=== PATIENT | male | born 1985 | race Caucasian/White ===

== ENCOUNTER 2020-06-26 16:03 | Outpatient (REF) | payer MEDICAID, SELFPAY | END 2020-06-26 16:04 | disposition home or self-care (01) | LOC: HO.LAB 16:03 | PROVIDERS: Visit Provider Internal Medicine | DX: Z20.828 Contact with and (suspected) exposure to other viral communicable diseases (principal) | CPT/HCPCS: 87635 ==

== ENCOUNTER 2020-12-21 14:53 | Outpatient (REF) | payer MEDICAID, SELFPAY ==
--- NOTE | ~2020-12-21 | XR_ITS ---
EXAMINATION: XR LUMBOSACRAL SPINE WITH OBLIQUES CLINICAL INFORMATION: Lower back pain. COMPARISON: Lumbar spine radiographs dated 03/09/2010. TECHNIQUE: AP, both oblique, and lateral views of the lumbar spine. Lateral view of the lumbosacral junction. FINDINGS: Normal vertebral body alignment. The lumbar lordosis is maintained. No acute fracture or subluxation. No loss of vertebral body height. Loss of intervertebral disc height with tiny anterior endplate osteophytes at L5-S1. Mild bilateral facet arthropathy at L5-S1. No abnormal soft tissue calcification. XR/XR lumbar spine 4V min IMPRESSION: Mild degenerative disc disease and bilateral facet arthropathy at L5-S1, new when compared to the prior radiographs.
== END 2020-12-21 14:54 | disposition home or self-care (01) ==
LOC: HO.XRAY 14:53
PROVIDERS: PCP Registered Nurse; Visit Provider Registered Nurse
DX: M54.5 Low back pain (principal)
CPT/HCPCS: 72110

== ENCOUNTER → 2021-01-26 10:54 | Outpatient (BNVA) | payer MEDICAID, SELFPAY | PROVIDERS: PCP Registered Nurse; Visit Provider Nurse Practitioner Family | DX: M47.816 Spondylosis without myelopathy or radiculopathy, lumbar region (principal); M17.12 Unilateral primary osteoarthritis, left knee; M25.562 Pain in left knee; F11.90 Opioid use, unspecified, uncomplicated; Z88.1 Allergy status to other antibiotic agents; Z88.8 Allergy status to other drugs, medicaments and biological substances; Z79.899 Other long term (current) drug therapy | CPT/HCPCS: 99202 ==

== ENCOUNTER → 2021-03-23 08:00 | Outpatient (BNVA) | payer MEDICAID, SELFPAY | PROVIDERS: PCP Family Medicine; Visit Provider Nurse Practitioner Family | DX: M47.816 Spondylosis without myelopathy or radiculopathy, lumbar region (principal); M25.562 Pain in left knee | CPT/HCPCS: 99212 ==

== ENCOUNTER 2021-07-02 14:45 | Outpatient (REF) | payer MEDICAID, SELFPAY ==
--- NOTE | ~2021-07-02 | XR_ITS ---
EXAMINATION: XR FOREARM, RIGHT CLINICAL INFORMATION: Acute onset of right forearm pain and swelling. COMPARISON: None TECHNIQUE: AP and lateral views of the right forearm were obtained. FINDINGS: No fracture or cortical disruption. Appropriate alignment at the elbow and wrist. Dorsal soft tissue swelling throughout the forearm and at the elbow. No elbow joint effusion. XR/XR forearm RT 2V IMPRESSION: Dorsal soft tissue swelling. No acute osseous abnormality.
--- NOTE | ~2021-07-02 | US_ITS ---
EXAMINATION: US VENOUS WITH DOPPLER UPPER EXTREMITY, BILATERAL CLINICAL INFORMATION: Bilateral arm pain COMPARISON: None TECHNIQUE: Ultrasound of the upper extremity is performed using compression sonography and color and pulse Doppler flow with assessment of augmentation of flow. There is also imaging and Doppler assessment of the jugular and subclavian veins. Spectral analysis with color-flow imaging is performed. FINDINGS: The bilateral internal jugular, subclavian, axillary, brachial, basilic and cephalic veins are patent. The bilateral radial and ulnar veins in the forearm are patent. There is no evidence of DVT. US/US venous duplex UE BI IMPRESSION: No DVT demonstrated in the bilateral upper extremities.
== END 2021-07-02 14:46 | disposition home or self-care (01) ==
LOC: HO.US 14:45
PROVIDERS: Absent Provider Registered Nurse; PCP Registered Nurse; Visit Provider Nurse Practitioner Primary Care
DX: R60.0 Localized edema (principal); M79.601 Pain in right arm; M79.602 Pain in left arm; M79.631 Pain in right forearm; M79.89 Other specified soft tissue disorders
CPT/HCPCS: 73090; 93970

== ENCOUNTER 2023-03-21 11:23 | Outpatient (REF) | payer MEDICAID, SELFPAY ==
[2023-03-21 14:50] LABS: CT PCR NOT DETECTED (Not Detect.); NG PCR NOT DETECTED (Not Detect.)
== END 2023-03-21 11:24 | disposition home or self-care (01) ==
LOC: HO.HHCLNP 11:23
PROVIDERS: Visit Provider Family Medicine
DX: R31.9 Hematuria, unspecified (principal)
CPT/HCPCS: 0353U; 87086

== ENCOUNTER 2023-04-18 15:34 | Outpatient (REF) | payer MEDICAID, SELFPAY ==
[2023-04-18 16:42] LABS: Anion Gap 13 (12-20); Blood Urea Nitrogen 12 mg/dL (9-16); Calcium 9.5 mg/dL (8.4-10.2); Carbon Dioxide 28 mmol/L (22-29); Chloride 102 mmol/L (96-108); Estimated Glomerular Filt Rate > 60; Glucose Random 106 mg/dL (60-115); Potassium 4.2 mmol/L (3.3-5.1); Sodium 139 mmol/L (135-145)
[2023-04-18 18:10] LABS: Appearance Urine Clear; Color Urine Dark Yellow; Glucose Urine UA Negative (Negative); Leukocyte Esterase Urine Negative (Negative); Nitrite Urine Negative (Negative); Specific Gravity - Urine >= 1.030 (1.005-1.025); UMIC TRIGGER UACC YES; Urine Blood Trace (Negative); Urine Ketones Trace mg/dL (Negative); Urine Protein Negative (Neg-Trace)
[2023-04-18 18:23] LABS: Bacteria Urine None Seen (None Seen); Hyaline Casts Urine 0-2 /LPF (0-2); RBC Urine >20 /HPF (0-2); Squamous Epithelial Cell Urine 0-2 /HPF (0-2); WBC Urine 0-5 /HPF (0-5)
== END 2023-04-18 15:35 | disposition home or self-care (01) ==
LOC: HO.HHCL 15:34
PROVIDERS: Visit Provider Internal Medicine Geriatric Medicine
DX: R31.9 Hematuria, unspecified (principal)
CPT/HCPCS: 36415; 80048; 81001

== ENCOUNTER 2023-06-02 12:42 | Outpatient (REF) | payer MEDICAID, SELFPAY ==
[2023-06-02 17:01] LABS: Urine Cytology See Pathology rpt
== END 2023-06-02 12:43 | disposition home or self-care (01) ==
LOC: HO.LNP 12:42
PROVIDERS: PCP Registered Nurse; Visit Provider Nurse Practitioner Family
DX: Z13.9 Encounter for screening, unspecified (principal); R31.0 Gross hematuria; Z87.891 Personal history of nicotine dependence
CPT/HCPCS: 81003; 88112; 99212

== ENCOUNTER 2023-06-02 12:42 | Outpatient (AMB) | payer MEDICAID, SELFPAY ==
--- NOTE | 2023-06-02 12:54 | MHC.OFFVIS ---
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 Piper. He presents to the office today as a new patient for gross hematuria. In discussion with the patient today he reports going to urgent care for episode of gross hematuria approximately 1 month ago at which time recommendations were made for Urology follow-up. He denies any other episodes of hematuria since his visit to the urgent care a month ago. However reports an episode of hematuria approximately 3 months ago as well. He denies any bothersome urinary issues such as urinary urgency, urinary frequency, incontinence, nocturia, dysuria, foul smelling urine, changes to urinary stream, flank pain, fever, and or chills. When asked he reports a longstanding cigarette smoking history since the age of 12 however quit approximately 8 years ago. He denies any known chemical exposure. Discussed at length potential causes for gross hematuria. Discussed obtaining CT urogram, cytology, and in office cystoscopy for further assessment evaluation. Discussed importance of drinking plenty of water daily. In office urinalysis today with no microscopic hematuria noted. He otherwise offers no other issues or concerns at this time. Review of Systems Const All systems reviewed & are unremarkable except as noted in HPI and below Physical Exam Const General: cooperative, healthy appearing, comfortable, no acute distress, well developed, alert and awake Nutritional Appearance: overweight Orientation/consciousness: patient oriented x3 Limitations: no limitations HEENT Head: Yes normal to inspection, Yes normocephalic and Yes atraumatic Ears: hearing grossly normal bilaterally Eyes General: appearance normal, both eyes and all related structures Neck Neck: Yes normal visual inspection and Yes trachea midline Chest Chest palpation & inspection: normal inspection of the chest Resp Effort & Inspection: normal respiratory effort and able to speak in complete sentences Cardio Rate: regular rate GI Inspection: Yes normal to inspection General: Yes no CVA tenderness Back/Spine/Pelvis Back: no CVA tenderness Skin General skin exam: no rashes or lesions noted Neuro General: patient oriented x3 Extrem General: Yes normal to inspection Psych Appearance: grossly normal and well kempt Mental Status: mental status grossly normal Speech and movement: Normal speech and movement present and Clear speech present Affect: normal affect Attitude: cooperative Thought process: Normal thought process present Thought content: Normal thought content present Insight: Fair insight present (Psych) Judgement: Fair judgement present (Psych) Results AMB Urinalysis, Automated UA Leukoctes 0 Aixa/uL Last Edit by [employer] on 06/02/23 13:15 UA Nitrite Last Edit by [employer] on 06/02/23 13:15 UA Urobilinogen 0.2 mg/dL Last Edit by [employer] on 06/02/23 13:15 UA Protein 0 mg/dL Last Edit by [employer] on 06/02/23 13:15 UA pH 7.0 Last Edit by [employer] on 06/02/23 13:15 UA Blood 0 Mihir/uL Last Edit by [employer] on 06/02/23 13:15 UA Specific [place] 1.015 Last Edit by [employer] on 06/02/23 13:15 UA Ketone Last Edit by [employer] on 06/02/23 13:15 UA Bilirubin 0 mg/dL Last Edit by [employer] on 06/02/23 13:15 UA Glucose 0 mg/dL Last Edit by [employer] on 06/02/23 13:15 Results Reviewed Results Reviewed: Laboratory Last Values Urine pH (Auto) 7.0 06/02/23 13:02 Specific [place] (Auto) 1.015 06/02/23 13:02 Urine Protein (Auto) 0 mg/dL 06/02/23 13:02 Glucose (UA)(Auto) 0 mg/dL 06/02/23 13:02 Urine Blood (Auto) 0 Mihir/uL 06/02/23 13:02 Urine Bilirubin (Auto) 0 mg/dL 06/02/23 13:02 Urine Urobilinogen (Auto) 0.2 mg/dL 06/02/23 13:02 Leukocyte Esterase (Auto) 0 Aixa/uL 06/02/23 13:02 Assessment & Plan Assessment & Plan (1) Gross hematuria: Code(s): R31.0 - Gross hematuria (2) History of nicotine use: Code(s): Z87.891 - Personal history of nicotine dependence Plan In office urinalysis results reviewed with the patient today; as noted above; will send for urine cytology Will obtain CT urogram for further assessment evaluation. BUN and creatinine ordered for imaging purposes Discussed at length potential causes for gross hematuria. Discussed, educated, encouraged to drink plenty of water daily. Patient reports be happy with current voiding parameters. Follow-up in 1-2 months for office cystoscopy with imaging and labs to be completed prior; or sooner with any issues, concerns, and or questions. Orders: Orders AMB Urinalysis Automated 06/02/23 Z13.9 - Encounter for screening, unspecified Urine Cytology 06/02/23 Z13.9 - Encounter for screening, unspecified CT urogram 06/02/23 R31.0 - Gross hematuria Blood Urea Nitrogen 06/02/23 R31.0 - Gross hematuria Creatinine 06/02/23 R31.0 - Gross hematuria Patient Instructions: The patient had an opportunity to ask questions regarding the treatment plan. All questions were answered. Physical exam, labs, and imaging were discussed and reviewed in detail. As well as risks, benefits, and discussion of treatment choices. No major barriers to understanding were identified. The patient expressed understanding and agreement with the above treatment plan. The patient was made aware they should contact our office by phone for worsening of their current condition, the appearance of new symptoms, or with any questions or concerns. Compliance is encouraged with any medications and follow up testing that is ordered. It is a privilege to be allowed the opportunity to participate in? your urological care.? Again, if you have any questions or concerns If you have any questions or concerns please do not hesitate to contact me. The office is [phone]. This note is constructed using voice recognition software. While every effort has been made to ensure accuracy edge blacker errors may have been included. Yours sincerely, CASPER Wilson Coding Level of Care Code New Pt Level 3 (08005) Diagnoses Gross hematuria R31.0 History of nicotine use Z87.891
== END 2023-06-02 13:26 | disposition home or self-care (01) ==
PROVIDERS: PCP Registered Nurse; Visit Provider Nurse Practitioner Family
DX: R31.0 Gross hematuria (principal); Z87.891 Personal history of nicotine dependence
CPT/HCPCS: 99203

== ENCOUNTER 2023-07-10 14:26 | Outpatient (AMB) | payer MEDICAID, SELFPAY ==
--- NOTE | 2023-07-10 14:36 | A.OFFVIS_ITS ---
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 07/10/2023? He is followed today for a cystoscopy procedure. CT Urogram is still pending. He initially evaluated by Oscar TOMLINSON Amie on 06/02/2023 for gross hematuria. Cystoscopy procedure: Consent form was obtained for Cystoscopy procedure. Cystoscopy findings: no suspicious bladder lesions, no bladder wall thickening. Review of charts: Last visit:06/02/2023-- Kong is a very pleasant 37-year-old male patient of Dr. Piper. He presents to the office today as a new patient for gross hematuria. In discussion with the patient today he reports going to urgent care for episode of gross hematuria approximately 1 month ago at which time recommendations were made for Urology follow-up. He denies any other episodes of hematuria since his visit to the urgent care a month ago. However reports an episode of hematuria approximately 3 months ago as well. He denies any bothersome urinary issues such as urinary urgency, urinary frequency, incontinence, nocturia, dysuria, foul smelling urine, changes to urinary stream, flank pain, fever, and or chills. When asked he reports a longstanding cigarette smoking history since the age of 12 however quit approximately 8 years ago. He denies any known chemical exposure. Discussed at length potential causes for gross hematuria. Discussed obtaining CT urogram, cytology, and in office cystoscopy for further assessment evaluation. Discussed importance of drinking plenty of water daily. In office urinalysis today with no microscopic hematuria noted. He otherwise offers no other issues or concerns at this time. 07/10/2023: Evaluation today--UA-- leukoc ytes: negative; blood: negative. 07/10/2023: Plan: Encouraged the patient to drink adequate amount of fluids. Follow-up with Nurse Practitioner Oscar Braxton. post CAT scan. [facility] Surgical History Hx of cystoscopy Review of Systems Const All systems reviewed & are unremarkable except as noted in HPI and below Reports no additional complaints Eyes Reports no additional complaints ENT Reports no additional complaints Card Denies dyspnea Resp Denies cough and Denies dyspnea GI Reports no additional complaints Musc Reports no additional complaints Skin/Breast Denies rash and Denies unusual bruising Neuro Reports no additional complaints Psych Reports no additional complaints Endo Reports no additional complaints Bigg/Lymph Reports no additional complaints Aller/Immun Reports no additional complaints Office Procedures Cystoscopy Consent Discussed risk and benefit or proposed procedure with the patient. Information consent for procedure given to the patient. Discussed technical aspects, risks, benefits and alternatives in full. Addressed all of the patient's questions and concerns regarding the procedure. The patient demonstrated knowledge and understanding. They wish to proceed with this procedure. Preparation The patient was prepped in the usual manner. A denture finisher was present and in the room. Genitalia was prepped with betadine solution in a sterile manner. Lidocaine Jelly 2% was placed into the urethra and 16Fr flexible Olympus cystoscope was inserted into the meatus after adequate lubrication. Procedure Time out per protocol performed. Bladder Inspection Bladder Inspection: The bladder was inspected in its entirety with utilization retroflexion displaying: Tumor(s): none visualized Trabeculation: N/A Mucosal Erthema: N/A Orifices: normal shape and position Urethra: normal Cystoscopy findings: prostatic urethra non obstructive, bulbous urethra WNL, no suspicious bladder lesions visualized [id number] DISPOSABLE SCOPE URO-G FLEXIBLE SCOPE Procedure code (CPT) selection complete Office Meds lidocaine HCl 2 % mucosal jelly in applicator Performing Provider: Jose Jewell MD Performing Location: [facility] Administered by: Jaida Diggs RN on 07/10/23 15:10 Dose Route Admin Location Dispensed Lot Number Expiration Date NDC Payroll Administrator 10 mL intra-urethral 20 mL naproxen 500 mg tablet Performing Provider: Jose Jewell MD Performing Location: [facility] Administered by: Jaida Diggs RN on 07/10/23 15:10 Dose Route Admin Location Dispensed Lot Number Expiration Date NDC Payroll Administrator 500 mg PO 1 tab ciprofloxacin HCl 500 mg tablet Performing Provider: Jose Jewell MD Performing Location: [facility] Administered by: Jaida Diggs RN on 07/10/23 15:10 Dose Route Admin Location Dispensed Lot Number Expiration Date NDC Payroll Administrator 500 mg PO 1 tab Results AMB Urinalysis, Automated UA Leukoctes 0 Aixa/uL Last Edit by Chapincito Doan Drew on 07/10/23 14:59 UA Nitrite Negative Last Edit by Chapincito Doan COUNTS INCLUDE 234 BEDS AT [facility] on 07/10/23 14:59 UA Urobilinogen 0.2 mg/dL Last Edit by Chapincito Doan COUNTS INCLUDE 234 BEDS AT [facility] on 07/10/23 14:5 9 UA Protein 15 mg/dL Last Edit by Chapincito Doan COUNTS INCLUDE 234 BEDS AT [facility] on 07/10/23 14:59 UA pH 6.0 Last Edit by Chapincito Doan COUNTS INCLUDE 234 BEDS AT [facility] on 07/10/23 14:59 UA Blood 0 Mihir/uL Last Edit by Chapincito Doan COUNTS INCLUDE 234 BEDS AT [facility] on 07/10/23 14:59 UA Specific [employer] 1.020 Last Edit by Chapincito Doan COUNTS INCLUDE 234 BEDS AT [facility] on 07/10/23 14: 59 UA Ketone Negative Last Edit by Chapincito Doan Drew on 07/10/23 14:59 UA Bilirubin 0 mg/dL Last Edit by Chapincito Doan COUNTS INCLUDE 234 BEDS AT [facility] on 07/10/23 14:59 UA Glucose 0 mg/dL Last Edit by Chapincito Doan COUNTS INCLUDE 234 BEDS AT [facility] on 07/10/23 14:59 Results Reviewed Results Reviewed: Laboratory Last Values Urine pH (Auto) 6.0 07/10/23 14:57 Specific [employer] (Auto) 1.020 07/10/23 14:57 Urine Protein (Auto) 15 mg/dL 07/10/23 14:57 Glucose (UA)(Auto) 0 mg/dL 07/10/23 14:57 Urine Ketones (Auto) Negative 07/10/23 14:57 Urine Blood (Auto) 0 Mihir/uL 07/10/23 14:57 Urine Nitrite (Auto) Negative 07/10/23 14:57 Urine Bilirubin (Auto) 0 mg/dL 07/10/23 14:57 Urine Urobilinogen (Auto) 0.2 mg/dL 07/10/23 14:57 Leukocyte Esterase (Auto) 0 Aixa/uL 07/10/23 14:57 Assessment & Plan Assessment & Plan (1) Gross hematuria: Code(s): R31.0 - Gross hematuria (2) History of nicotine use: Code(s): Z87.891 - Personal history of nicotine dependence Plan Encouraged the patient to drink adequate amount of fluids. Follow-up with Nurse Practitioner Oscar Braxton. post CAT scan. Orders: Orders AMB Urinalysis Automated Today Z13.9 - Encounter for screening, unspecified AMB Cystoscopy Today R31.0 - Gross hematuria Patient Instructions: The patient had an opportunity to ask questions regarding treatment plan. All questions were answered. Imaging, Laboratory studies and physical exam results were discussed and reviewed in detail. No major barriers to understanding were identified. The patient expressed understanding and agreement with the above treatment plan. The patient is aware they should contact our office by phone for worsening of their current condition or the appearance of new symptoms. Compliance is encouraged with any medications and followup testing that is ordered. It is a privilege to be allowed the opportunity to participate in the urologic care of your patient. If you have any questions or concerns regarding treatment for the above conditions please do not hesitate to contact me. The office telephone contact is [phone]. This note is constructed in part using voice recognition software. While every effort has been made to ensure accuracy computer lab assistant errors may have been included. Yours sincerely, Jose Jewell MD Coding Level of Care Code Procedure Only Diagnoses Gross hematuria R31.0 History of nicotine use Z87.891 CPT Codes Cystoscopy - CPT: [id number] ([id number])
== END 2023-07-10 15:43 | disposition home or self-care (01) ==
PROVIDERS: PCP Registered Nurse; Visit Provider Urology
DX: R31.0 Gross hematuria (principal); Z87.891 Personal history of nicotine dependence
CPT/HCPCS: 52000

== ENCOUNTER → 2023-07-10 14:26 | Outpatient (BNVA) | payer MEDICAID, SELFPAY | PROVIDERS: PCP Registered Nurse; Visit Provider Urology | DX: R31.0 Gross hematuria (principal); Z87.891 Personal history of nicotine dependence | CPT/HCPCS: 52000; 81003 ==

== ENCOUNTER 2023-07-14 08:42 | Outpatient (REF) | payer MEDICAID, SELFPAY ==
--- NOTE | ~2023-07-14 | CT_ITS ---
EXAMINATION: CT ABDOMEN AND PELVIS WITHOUT AND WITH CONTRAST CLINICAL INFORMATION: Gross hematuria. COMPARISON: 01/08/2010 TECHNIQUE: Noncontrast CT of the abdomen and pelvis is performed followed by split bolus contrast-enhanced images using 85 mL Omnipaque 350 contrast.? Postcontrast imaging is performed during the combined nephrogram and excretion phase. Sagittal and coronal reformatted images were obtained on the technologist's workstation for both the precontrast and postcontrast phases. This CT examination was performed using dose optimization techniques as appropriate, variously including the following: *Automated exposure control *Adjustment of mA and/or kV according to patient size (this includes techniques or standardized protocols for targeted exams where dose is matched to indication/reason for exam; i.e. extremities or head) *Use of iterative reconstruction technique DLP: 1769 mGy-cm FINDINGS: LUNG BASES: No pleural or pericardial effusion. LIVER, GALLBLADDER, AND BILIARY TREE: The liver is enlarged and decreased in attenuation. No suspicious hepatic lesion or biliary ductal dilatation is present. The gallbladder is unremarkable with no evidence of radiopaque gallstones, gallbladder wall thickening, or obvious pericholecystic inflammatory changes. PANCREAS: Fatty infiltration of the head of the pancreas. No ductal dilatation. SPLEEN: Not enlarged. ADRENAL GLANDS: No adrenal mass. KIDNEYS AND URETERS: The kidneys are symmetric in size and enhancement. Delayed images demonstrate intact renal function. 1.2 cm cyst upper pole left kidney. No further imaging follow-up is needed. No perinephric stranding. No renal or ureteral calculus. Bilateral collecting systems and opacified portions of the ureters are nondilated and without obvious filling defects. BLADDER: No bladder calculus. The urinary bladder minimally fills with excreted contrast. No bladder wall thickening. GASTROINTESTINAL TRACT: Small and large bowel loops are of normal caliber. No small bowel obstruction. Moderate fecal retention in the colon. ABDOMINAL WALL: No significant hernia is appreciated. LYMPH NODES: Few mark hepatis lymph nodes are likely on a reactive basis. VASCULAR: Normal caliber abdominal aorta. PELVIC VISCERA: Unremarkable. OSSEUS STRUCTURES: No destructive bone lesions. CT/CT urogram IMPRESSION: No nephrolithiasis or hydronephrosis. Hepatomegaly and hepatic steatosis.
[2023-07-14] MEDS: iohexoL 350 MG/ML 100 ML INFUS..BTL IV (09:28)
== END 2023-07-14 08:43 | disposition home or self-care (01) ==
LOC: HO.CT 08:42
PROVIDERS: PCP Registered Nurse; Visit Provider Nurse Practitioner Family
DX: R31.0 Gross hematuria (principal)
CPT/HCPCS: 74178; Q9967

== ENCOUNTER 2023-08-03 15:51 | Outpatient (AMB) | payer MEDICAID, SELFPAY ==
--- NOTE | 2023-08-03 15:51 | A.OFFVIS_ITS ---
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 Piper. He is being follow-up on today via telehealth for his history of gross hematuria. Of note, patient underwent in office cystoscopy approximately [address] Jewell at which time no suspicious bladder lesions and or bladder wall thickening noted. Recent CT imaging results reviewed with the patient today. The kidneys are symmetrical in size and enhancement. 1.2 cm cyst upper pole of the left kidney. No further imaging follow-up is recommended per radiology report. No perinephric stranding. No renal or ureteral calculus is seen. Bilateral collecting systems and opacified portions of the ureters are nondilated and without obvious filling defects. No bladder calculus. The urinary bladder minimally fills with excreted contrast. No bladder wall thickening. In discussion with the patient today he reports to be doing and feeling well. He denies any bothersome urinary issues or concerns at this time. He denies urinary urgency, urinary frequency, incontinence, nocturia, dysuria, foul smelling urine, changes to urinary stream, flank pain, fever, and or chills. When asked he reports a longstanding cigarette smoking history since the age of 12 however quit approximately 8 years ago. He denies any known chemical exposure. Discussed at length potential causes for gross hematuria. Discussed importance of drinking plenty of water daily. He otherwise offers no other issues or concerns at this time. Cytology 06/26--Negative for high-grade urothelial carcinoma. [facility] Surgical History Hx of cystoscopy Review of Systems Const All systems reviewed & are unremarkable except as noted in HPI and below Physical Exam Const General: cooperative Resp Effort & Inspection: able to speak in complete sentences Psych Speech and movement: Clear speech present Attitude: cooperative Thought process: Normal thought process present Thought content: Normal thought content present Insight: Fair insight present (Psych) Judgement: Fair judgement present (Psych) Results Reviewed Results Reviewed: Date of Service: 07/14/23 EXAMINATION: CT ABDOMEN AND PELVIS WITHOUT AND WITH CONTRAST FINDINGS: LUNG BASES: No pleural or pericardial effusion. LIVER, GALLBLADDER, AND BILIARY TREE: The liver is enlarged and decreased in attenuation. No suspicious hepatic lesion or biliary ductal dilatation is present. The gallbladder is unremarkable with no evidence of radiopaque gallstones, gallbladder wall thickening, or obvious pericholecystic inflammatory changes. PANCREAS: Fatty infiltration of the head of the pancreas. No ductal dilatation. SPLEEN: Not enlarged. ADRENAL GLANDS: No adrenal mass. KIDNEYS AND URETERS: The kidneys are symmetric in size and enhancement. Delayed images demonstrate intact renal function. 1.2 cm cyst upper pole left kidney. No further imaging follow-up is needed. No perinephric stranding. No renal or ureteral calculus. Bilateral collecting systems and opacified portions of the ureters are nondilated and without obvious filling defects. BLADDER: No bladder calculus. The urinary bladder minimally fills with excreted contrast. No bladder wall thickening. GASTROINTESTINAL TRACT: Small and large bowel loops are of normal caliber. No small bowel obstruction. Moderate fecal retention in the colon. ABDOMINAL WALL: No significant hernia is appreciated. LYMPH NODES: Few mark hepatis lymph nodes are likely on a reactive basis. VASCULAR: Normal caliber abdominal aorta. PELVIC VISCERA: Unremarkable. OSSEUS STRUCTURES: No destructive bone lesions. IMPRESSION: No nephrolithiasis or hydronephrosis. Hepatomegaly and hepatic steatosis. Assessment & Plan Assessment & Plan (1) Gross hematuria: Code(s): R31.0 - Gross hematuria (2) Renal cyst: Code(s): N28.1 - Cyst of kidney, acquired (3) History of nicotine use: Code(s): Z87.891 - Personal history of nicotine dependence Plan Recent CT urogram results reviewed with the patient today; as noted above. Patient denies any bothersome urinary issues or concerns at this time. Discussed, educated, encouraged on the importance of drinking plenty of water daily. Patient is happy with current voiding parameters. Discussed at length potential causes of gross hematuria as well as renal cyst. Follow-up in 6 months; or sooner with any issues, concerns, and or questions. Patient Instructions: The patient had an opportunity to ask questions regarding the treatment plan. All questions were answered. Physical exam, labs, and imaging were discussed and reviewed in detail. As well as risks, benefits, and discussion of treatment choices. No major barriers to understanding were identified. The patient expressed understanding and agreement with the above treatment plan. The patient was made aware they should contact our office by phone for worsening of their current condition, the appearance of new symptoms, or with any questions or concerns. Compliance is encouraged with any medications and follow up testing that is ordered. It is a privilege to be allowed the opportunity to participate in? your urological care.? Again, if you have any questions or concerns If you have any questions or concerns please do not hesitate to contact me. The office is [phone]. This note is constructed using voice recognition software. While every effort has been made to ensure accuracy vending machine filler errors may have been included. Yours sincerely, DALY Wilson Telehealth Telehealth Location of provider rendering services: practice address Location of patient: address on file Patient Identification confirmed using: Name, : Yes Telehealth method: voice only Patient verbally consented to treatment: Yes Patient verbally consented to billing insurance company: Yes Patient informed of any privacy concerns related to visit: Yes Coding Level of Care Code Tele Est Pt Level 2 (83859) Diagnoses Gross hematuria R31.0 Renal cyst N28.1 History of nicotine use Z87.891 Time Spent (min) 15
== END 2023-08-03 16:10 ==
LOC: HO.HUSH 15:51
PROVIDERS: PCP Registered Nurse; Visit Provider Nurse Practitioner Family
DX: R31.0 Gross hematuria (principal); N28.1 Cyst of kidney, acquired; Z87.891 Personal history of nicotine dependence
CPT/HCPCS: 99212

== ENCOUNTER → 2023-08-03 15:51 | Outpatient (BNVA) | payer MEDICAID, SELFPAY | PROVIDERS: PCP Registered Nurse; Visit Provider Nurse Practitioner Family ==

== ENCOUNTER 2023-11-01 16:12 | Outpatient (REF) | payer MEDICAID, SELFPAY ==
[2023-11-01 17:30] LABS: MANUAL DIFF FLAG NO
[2023-11-01 17:37] LABS: Basophils Percent Auto 0.8 % (0-2); Eosinophils Absolute Auto 0.2 X10*3/uL (0.0-0.4); Eosinophils Percent Auto 5.5 % (0-4); Hemoglobin 15.1 g/dl (14.0-18.0); Imm Gran Abs Auto 0.01 X10*3/uL (0.00-0.03); Imm Gran Pct Auto 0.3 % (0.0-0.4); Lymphocytes Absolute Auto 1.6 X10*3/uL (1.2-4.9); Lymphocytes Percent Auto 39.8 % (20-40); Mean Corpuscular HGB Conc 33.6 g/dl (31.0-36.0); Mean Corpuscular Hemoglobin 27.6 pg (27.0-33.0); Mean Corpuscular Volume 82.3 fL (80.0-98.0); Mean Platelet Volume 9.4 fL (9.4-12.4); Monocytes Absolute Auto 0.5 X10*3/uL (0.1-1.2); Monocytes Percent Auto 12.3 % (2-11); Neutrophils Absolute Auto 1.7 x10*3/uL (2.0-8.3); Neutrophils Percent Auto 41.3 % (45-73); Platelet Count 293 X10*3/uL (160-400); Red Blood Count 5.47 X10*6/uL (4.60-5.80); Red Cell Distribution Width 13.5 % (11.0-16.0)
[2023-11-01 18:05] LABS: Estimated Average Glucose 103 mg/dL; Hemoglobin A1c % 5.2 % (<6.0)
[2023-11-01 18:19] LABS: TSH reflex Free T4 0.48 uIU/mL (0.32-4.0)
== END 2023-11-01 16:13 | disposition home or self-care (01) ==
LOC: HO.HHCL 16:12
PROVIDERS: Visit Provider Nurse Practitioner
DX: R23.2 Flushing (principal)
CPT/HCPCS: 36415; 83036; 84443; 85025

== ENCOUNTER 2023-12-28 09:20 | Outpatient (REF) | payer MEDICAID, SELFPAY ==
[2023-12-28 11:33] LABS: MANUAL DIFF FLAG NO
[2023-12-28 11:42] LABS: Basophils Percent Auto 0.9 % (0-2); Eosinophils Absolute Auto 0.1 X10*3/uL (0.0-0.4); Eosinophils Percent Auto 3.4 % (0-4); Hematocrit 44.7 % (42.0-52.0); Hemoglobin 14.7 g/dl (14.0-18.0); Imm Gran Abs Auto 0.01 X10*3/uL (0.00-0.03); Imm Gran Pct Auto 0.3 % (0.0-0.4); Lymphocytes Absolute Auto 1.2 X10*3/uL (1.2-4.9); Lymphocytes Percent Auto 36.3 % (20-40); Mean Corpuscular HGB Conc 32.9 g/dl (31.0-36.0); Mean Corpuscular Hemoglobin 26.6 pg (27.0-33.0); Mean Platelet Volume 9.4 fL (9.4-12.4); Monocytes Absolute Auto 0.4 X10*3/uL (0.1-1.2); Monocytes Percent Auto 11.8 % (2-11); Neutrophils Absolute Auto 1.5 x10*3/uL (2.0-8.3); Neutrophils Percent Auto 47.3 % (45-73); Platelet Count 277 X10*3/uL (160-400); Red Blood Count 5.52 X10*6/uL (4.60-5.80); Red Cell Distribution Width 14.1 % (11.0-16.0); White Blood Count 3.2 X10*3/uL (4.8-10.8)
[2023-12-28 11:50] LABS: Alanine Aminotransferase 148 U/L (0-40); Albumin Level 3.6 g/dL (3.5-5.0); Alkaline Phosphatase 380 U/L (39-117); Anion Gap 12 (12-20); Aspartate Amino Transferase 183 U/L (5-37); Bilirubin Total 4.1 mg/dL (0.0-1.0); Blood Urea Nitrogen 9 mg/dL (9-16); Calcium 9.8 mg/dL (8.4-10.2); Carbon Dioxide 27 mmol/L (22-29); Chloride 103 mmol/L (96-108); Estimated Glomerular Filt Rate > 60; Glucose Random 103 mg/dL (60-115); Sodium 138 mmol/L (135-145); Total Protein 8.3 g/dL (6.5-8.0)
[2023-12-28 12:15] LABS: HBS Num1 276.83 mIU/mL (0-7.99); HBc Num1 0.51 S/CO (0.00-0.79); HBsAGNum1 0.34 S/CO (0.00-0.99); Hepatitis A Antibody IgG REACTIVE (Nonreactive); Hepatitis B Core Antibody Nonreactive (Nonreactive); Hepatitis B Surface Antigen Negative (Negative); ~HepC Num1 10.06 S/CO (0.00-0.79); ~Hepatitis A Antibody IgG 6.07 S/CO (0.00-0.99); ~Hepatitis B Surface Antibody REACTIVE (Nonreactive); ~Hepatitis C Antibody Reactive (Nonreactive)
[2024-01-01 13:08] LABS: HCV Log PCR <1.18 NOT DETECTED Log IU/mL (NOT DETECTED); HepC Viral Load <15 NOT DETECTED IU/mL (NOT DETECTED)
== END 2023-12-28 09:21 | disposition home or self-care (01) ==
LOC: HO.HHCL 09:20
PROVIDERS: Visit Provider Family Medicine
DX: R82.2 Biliuria (principal); R39.9 Unspecified symptoms and signs involving the genitourinary system
CPT/HCPCS: 36415; 80053; 85025; 86704; 86706; 86708; 86803; 87086; 87340; 87522

== ENCOUNTER 2024-01-01 12:49 | Outpatient (REF) | payer MEDICAID, SELFPAY ==
--- NOTE | ~2024-01-01 | CT_ITS ---
EXAMINATION: CT ABDOMEN WITHOUT AND WITH CONTRAST CLINICAL INFORMATION: Icterus and bilirubinuria. Also with elevated AST/ALT and Bilirubin. COMPARISON: CT angiogram July 14, 2023 TECHNIQUE: Contiguous axial thin section helical images of the abdomen were performed before and after the administration of 85 mL of Omnipaque 350 intravenous contrast. The data set was reformatted in the coronal and sagittal planes and reviewed on an independent workstation. This CT examination was performed using dose optimization techniques as appropriate, variously including the following: *Automated exposure control *Adjustment of mA and/or kV according to patient size (this includes techniques or standardized protocols for targeted exams where dose is matched to indication/reason for exam; i.e. extremities or head) *Use of iterative reconstruction technique DLP: 1538 mGy-cm FINDINGS: LUNG BASES: Bibasilar dependent atelectasis. No pleural effusion. LIVER, GALLBLADDER, AND BILIARY TREE: Mild low-attenuation of parenchyma of liver suggesting mild diffuse fatty change. No focal liver lesion. No intrahepatic bile duct dilatation. Mild hepatomegaly. Right lobe of liver measures 22 cm superior inferior. PANCREAS: There is fatty atrophy of the head of the pancreas. This remains unchanged compared to prior CAT scan. No inflammation or mass. No pancreatic duct dilatation. SPLEEN: Spleen is enlarged measuring 18 cm of length. ADRENAL GLANDS AND KIDNEYS: Adrenal glands are normal in size bilaterally. No mass. Kidneys are normal bilaterally. No renal or ureteral calculi. Small cortical cyst upper pole of the left kidney stable since prior CAT scan. No follow-up imaging is recommended for simple renal cyst. BOWEL LOOPS: No acute abnormality. There is no bowel wall thickening /edema. There is no bowel obstruction. There is a moderate to large volume of stool in the colon. The appendix is normal . The small bowel loops are unremarkable. The stomach is normal. There is no hiatal hernia. LYMPH NODES: Normal. VASCULAR: Unremarkable. BONES: No acute osseous abnormality. CT/CT abdomen wo/w IV con IMPRESSION: 1. No acute abnormality CT scan abdomen. 2. Hepatosplenomegaly. Mild diffuse fatty change of liver. Fleischner guidelines were followed.
[2024-01-01] MEDS: iohexoL 350 MG/ML 100 ML INFUS..BTL 85 ML IV (15:09)
== END 2024-01-01 12:50 | disposition home or self-care (01) ==
LOC: HO.CT 12:49
PROVIDERS: PCP Nurse Practitioner; Visit Provider Family Medicine
DX: K75.9 Inflammatory liver disease, unspecified (principal)
CPT/HCPCS: 74170; Q9967

== ENCOUNTER 2024-01-31 14:55 | Outpatient (AMB) | payer MEDICAID, SELFPAY ==
--- NOTE | 2024-01-31 15:00 | A.OFFVIS_ITS ---
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 Piper. He presents to the office today for follow-up of his gross hematuria. In discussion with the patient today reports to be doing and feeling well. He reports following up with his PCP approximately 2 months ago for episodes of fatigue he had been experiencing in undergoing a CT for increased liver enzymes. He continues to follow-up with PCP regarding this issue. He reports no bothersome urinary issues or concerns. He denies having had any episodes of hematuria since May of last year. Of note, patient underwent in office cystoscopy 07/[address] Jewell at which time no suspicious bladder lesions and or bladder wall thickening noted. Previous workup has also included a CT noting the kidneys are symmetrical in size and enhancement. 1.2 cm cyst upper pole of the left kidney. No further imaging follow-up is recommended per radiology report. No perinephric stranding. No renal or ureteral calculus is seen. Bilateral collecting systems and opacified portions of the ureters are nondilated and without obvious filling defects. No bladder calculus. The urinary bladder minimally fills with excreted contrast. No bladder wall thickening. He denies urinary urgency, urinary frequency, incontinence, nocturia, dysuria, foul smelling urine, changes to urinary stream, flank pain, fever, and or chills. He does have a history of nicotine dependence since the age of 12 however quit in 2016. He denies any known chemical exposure in office urinalysis results reviewed with the patient today. No microscopic hematuria noted. However pH 5.5. Discussed importance of adequate hydration. He otherwise offers no other issues or concerns at this time. Cytology 06/26--Negative for high-grade urothelial carcinoma. [facility] Surgical History Hx of cystoscopy Review of Systems Const All systems reviewed & are unremarkable except as noted in HPI and below Physical Exam Const General: cooperative, healthy appearing, comfortable, no acute distress, well developed, alert and awake Nutritional Appearance: overweight Orientation/consciousness: patient oriented x3 Limitations: no limitations HEENT Head: Yes normal to inspection, Yes normocephalic and Yes atraumatic Ears: hearing grossly normal bilaterally Eyes General: appearance normal, both eyes and all related structures Neck Neck: Yes normal visual inspection and Yes trachea midline Chest Chest palpation & inspection: normal inspection of the chest Resp Effort & Inspection: able to speak in complete sentences Cardio Rate: regular rate GI Inspection: Yes normal to inspection General: Yes no CVA tenderness Back/Spine/Pelvis Back: no CVA tenderness Skin General skin exam: no rashes or lesions noted Neuro General: patient oriented x3 Extrem General: Yes normal to inspection Psych Appearance: grossly normal and well kempt Mental Status: mental status grossly normal Speech and movement: Clear speech present Affect: normal affect Attitude: cooperative Thought process: Normal thought process present Thought content: Normal thought content present Insight: Fair insight present (Psych) Judgement: Fair judgement present (Psych) Results AMB Urinalysis, Automated UA Leukoctes 15 Aixa/uL Last Edit by [employer] on 01/31/24 15:26 UA Nitrite Negative Last Edit by [employer] on 01/31/24 15:26 UA Urobilinogen 0.2 mg/dL Last Edit by [employer] on 01/31/24 15:26 UA Protein 30 mg/dL Last Edit by [employer] on 01/31/24 15:26 UA pH 5.5 Last Edit by [employer] on 01/31/24 15:26 UA Blood 0 Mihir/uL Last Edit by [employer] on 01/31/24 15:26 UA Specific [place] 1.030 Last Edit by [employer] on 01/31/24 15:26 UA Ketone Positive Last Edit by [employer] on 01/31/24 15:26 UA Bilirubin 1 mg/dL Last Edit by [employer] on 01/31/24 15:26 UA Glucose 0 mg/dL Last Edit by [employer] on 01/31/24 15:26 Assessment & Plan Assessment & Plan (1) Gross hematuria: Code(s): R31.0 - Gross hematuria Category: Medical Plan In office urinalysis results reviewed with the patient today; as noted above. Patient currently denies any bothersome urinary issues or concerns. He reports be happy with current voiding parameters. Discussed at length potential causes for previous episode of gross hematuria patient experienced. Discussed, educated, and stressed the importance of drinking water daily. Continue to follow-up with PCP regarding elevated liver enzymes as planned. Follow-up in 1 year; or sooner with any issues, concerns, and or questions. Orders: Orders AMB Urinalysis Automated Today Z13.9 - Encounter for screening, unspecified Patient Instructions: The patient had an opportunity to ask questions regarding the treatment plan. All questions were answered. Physical exam, labs, and imaging were discussed and reviewed in detail. As well as risks, benefits, and discussion of treatment choices. No major barriers to understanding were identified. The patient expressed understanding and agreement with the above treatment plan. The patient was made aware they should contact our office by phone for worsening of their current condition, the appearance of new symptoms, or with any questions or concerns. Compliance is encouraged with any medications and follow up testing that is ordered. It is a privilege to be allowed the opportunity to participate in? your urological care.? Again, if you have any questions or concerns If you have any questions or concerns please do not hesitate to contact me. The office is [phone]. This note is constructed using voice recognition software. While every effort has been made to ensure accuracy english faculty member errors may have been included. Yours sincerely, CASPER Wilson Coding Level of Care Code Est Pt Level 3 (70558) Diagnoses Gross hematuria R31.0
== END 2024-01-31 15:23 | disposition home or self-care (01) ==
PROVIDERS: PCP Registered Nurse; Visit Provider Nurse Practitioner Family
DX: R31.0 Gross hematuria (principal); Z13.9 Encounter for screening, unspecified
CPT/HCPCS: 99213

== ENCOUNTER → 2024-01-31 14:55 | Outpatient (BNVA) | payer MEDICAID, SELFPAY | PROVIDERS: PCP Registered Nurse; Visit Provider Nurse Practitioner Family | DX: R31.0 Gross hematuria (principal) | CPT/HCPCS: 81003; 99212 ==

== ENCOUNTER 2024-02-02 16:42 | Outpatient (REF) | payer MEDICAID, SELFPAY ==
[2024-02-02 17:21] LABS: MANUAL DIFF FLAG NO
[2024-02-02 17:38] LABS: Basophils Percent Auto 0.6 % (0-2); Eosinophils Absolute Auto 0.1 X10*3/uL (0.0-0.4); Eosinophils Percent Auto 3.2 % (0-4); Hematocrit 43.6 % (42.0-52.0); Hemoglobin 14.7 g/dl (14.0-18.0); Imm Gran Abs Auto 0.01 X10*3/uL (0.00-0.03); Imm Gran Pct Auto 0.3 % (0.0-0.4); Lymphocytes Absolute Auto 1.4 X10*3/uL (1.2-4.9); Lymphocytes Percent Auto 40.8 % (20-40); Mean Corpuscular HGB Conc 33.7 g/dl (31.0-36.0); Mean Corpuscular Hemoglobin 26.7 pg (27.0-33.0); Mean Corpuscular Volume 79.1 fL (80.0-98.0); Mean Platelet Volume 9.4 fL (9.4-12.4); Monocytes Absolute Auto 0.4 X10*3/uL (0.1-1.2); Monocytes Percent Auto 12.8 % (2-11); Neutrophils Absolute Auto 1.5 x10*3/uL (2.0-8.3); Neutrophils Percent Auto 42.3 % (45-73); Platelet Count 254 X10*3/uL (160-400); Red Blood Count 5.51 X10*6/uL (4.60-5.80); Red Cell Distribution Width 14.4 % (11.0-16.0); White Blood Count 3.4 X10*3/uL (4.8-10.8)
[2024-02-02 18:27] LABS: Alanine Aminotransferase 135 U/L (0-40); Albumin Level 3.9 g/dL (3.5-5.0); Alkaline Phosphatase 438 U/L (39-117); Anion Gap 13 (12-20); Aspartate Amino Transferase 160 U/L (5-37); Bilirubin Direct 1.8 mg/dL (0.0-0.5); Bilirubin Total 2.5 mg/dL (0.0-1.0); Blood Urea Nitrogen 12 mg/dL (9-16); Calcium 9.9 mg/dL (8.4-10.2); Carbon Dioxide 27 mmol/L (22-29); Chloride 103 mmol/L (96-108); Estimated Glomerular Filt Rate > 60; Glucose Random 93 mg/dL (60-115); Sodium 139 mmol/L (135-145); Total Protein 8.8 g/dL (6.5-8.0)
[2024-02-05 15:57] LABS: Iron 82 mcg/dL (45-160); Percent Iron Saturation 22 % (15-50); Total Iron Binding Capacity 365 mcg/dL (228-428); Unsaturated Iron Binding 283 ug/dL
== END 2024-02-02 16:43 | disposition home or self-care (01) ==
LOC: HO.HHCL 16:42
PROVIDERS: Visit Provider Nurse Practitioner
DX: R74.8 Abnormal levels of other serum enzymes (principal)
CPT/HCPCS: 36415; 80048; 80076; 83540; 85025

== ENCOUNTER 2024-09-18 11:43 | Outpatient (REF) | payer MEDICAID, SELFPAY ==
[2024-09-18 13:06] LABS: MANUAL DIFF FLAG NO
[2024-09-18 13:14] LABS: Basophils Percent Auto 0.9 % (0-2); Eosinophils Absolute Auto 0.1 X10*3/uL (0.0-0.4); Eosinophils Percent Auto 3.4 % (0-4); Hematocrit 41.1 % (42.0-52.0); Hemoglobin 13.7 g/dl (14.0-18.0); Imm Gran Abs Auto 0.01 X10*3/uL (0.00-0.03); Imm Gran Pct Auto 0.3 % (0.0-0.4); Lymphocytes Absolute Auto 1.2 X10*3/uL (1.2-4.9); Lymphocytes Percent Auto 36.3 % (20-40); Mean Corpuscular HGB Conc 33.3 g/dl (31.0-36.0); Mean Corpuscular Hemoglobin 27.5 pg (27.0-33.0); Mean Corpuscular Volume 82.4 fL (80.0-98.0); Mean Platelet Volume 9.4 fL (9.4-12.4); Monocytes Absolute Auto 0.4 X10*3/uL (0.1-1.2); Monocytes Percent Auto 13.8 % (2-11); Neutrophils Absolute Auto 1.5 x10*3/uL (2.0-8.3); Neutrophils Percent Auto 45.3 % (45-73); Platelet Count 221 X10*3/uL (160-400); Red Blood Count 4.99 X10*6/uL (4.60-5.80); Red Cell Distribution Width 14.3 % (11.0-16.0); White Blood Count 3.2 X10*3/uL (4.8-10.8)
[2024-09-18 13:27] LABS: Estimated Average Glucose 94 mg/dL; Hemoglobin A1C 110.2027 umol/L; Hemoglobin A1c % 4.9 % (<6.0); Total Hemoglobin (HGBA1C) 3645.0785 umol/L
[2024-09-18 13:38] LABS: Alanine Aminotransferase 125 U/L (0-40); Albumin Level 3.9 g/dL (3.5-5.0); Alkaline Phosphatase 216 U/L (39-117); Amylase 40 U/L (28-100); Aspartate Amino Transferase 150 U/L (5-37); Bilirubin Direct 1.2 mg/dL (0.0-0.5); Bilirubin Total 1.9 mg/dL (0.0-1.0); Lipase 13 U/L (8-78); Total Protein 8.6 g/dL (6.5-8.0)
[2024-09-18 13:43] LABS: TSH reflex Free T4 0.07 uIU/mL (0.32-4.0)
[2024-09-18 14:32] LABS: Free T4 (Free Thyroxine) 0.94 ng/dL (0.71-1.85)
[2024-09-21 02:54] LABS: TS Negative Control Passed; TS Panel A 0; TS Panel B 0; TS Positive Control Passed; TSpotTB Negative (Negative)
== END 2024-09-18 11:44 | disposition home or self-care (01) ==
LOC: HO.HHCL 11:43
PROVIDERS: Family Medicine; Visit Provider Nurse Practitioner
DX: K75.9 Inflammatory liver disease, unspecified (principal); R23.2 Flushing; Z11.1 Encounter for screening for respiratory tuberculosis; R74.8 Abnormal levels of other serum enzymes
CPT/HCPCS: 36415; 80076; 82150; 83036; 83690; 84439; 84443; 85025; 86481

== ENCOUNTER 2024-09-25 11:04 | Outpatient (REF) | payer MEDICAID, SELFPAY ==
[2024-09-25 12:26] LABS: Anion Gap 12 (12-20); Blood Urea Nitrogen 12 mg/dL (9-16); Calcium 9.1 mg/dL (8.4-10.2); Carbon Dioxide 26 mmol/L (22-29); Chloride 102 mmol/L (96-108); Cholesterol 201 mg/dL (<200); Estimated Glomerular Filt Rate > 60; Glucose Random 88 mg/dL (60-115); HDL Cholesterol 28 mg/dL (>40); LDL Cholesterol Calculated 120 mg/dL (<100); Potassium 4.1 mmol/L (3.3-5.1); Sodium 136 mmol/L (135-145); Triglycerides 265 mg/dL (<150)
--- OUTSIDE RECORDS SUMMARY | 2024-09-25 12:37 | XMS_ITS | Encounter Summary ---
Author Organization [email or web address] [facility] Address [address] [place] [address] Care Team Providers Care Property Utilization Manager Name Role Phone Berenice Yoder NP Primary Care Provider [phone] Reason for Referral * Consultation (Routine) - Authorized Specialty Diagnoses / Procedures Referred By Velasquez t Referred To Contact Optometry Diagnoses Encounter for physical examination Berenice Yoder NP [address] [place] [address] Phone: tel: fax: [facility] [address] [place] [id number] Phone: tel: fax: Referral ID Status Reason Start Date Expiration Date Visits Requested Visits Authorized [id number] Authorized Consult and Treat 09/25/2024 09/25/2025 1 1 Reason for Visit * Reason Comments Annual Exam Encounter Details Date Type Department Care Team (Late st Contact Info) Description 09/25/2024 10:00 AM EST Office Visit [facility] [address] [place] [address] Berenice Yoder NP [address] [place] [address] Encounter for physical examination (Primary Dx); Abnormal liver enzymes; Anemia, unspecified type; Low serum thyroid stimulating hormone (TSH); Overweight; Hypovitaminosis D Social History Tobacco Use Types Packs/Day Years Used Date Smoking Tobacco: Former Cigarettes Passive Smoke Exposure: Past Smokeless Tobacco: Never Alcohol Use Standard Drinks/Week Comments Never 0 (1 standard drink = 0.6 oz pur e alcohol) Alcohol Answer Date Recorded How often do you have a drink containing alcohol ? 0 09/25/2024 How many drinks containing a lcohol do you have on a typical day when you are drinking? 0 09/25/2024 How often do you have six or more drinks on one occasion? 0 09/25/2024 Depression Answer Date Recorded Patient Health Questionnaire-9 Score 0 11/01/2023 Patient Health Questionnaire-9 Score 0 11/01/2023 Last PHQ-9: Questionnaire Data Not on file 0 11/01/2023 Housing Stability Answer Date Recorded What is your housing situation today? I have [place] 11/01/[address] you li ve. Do you have problems with any of the following? None of the above 11/01/2023 Food Insecurity Answer Date Recorded Within the past 12 months, y ou worried that your food would run out before you got money to buy more: Never True 11/01/2023 Within the past 12 months,th e food you bought just didn't last and you didn't have enough money to get more: Never True Transportation Answer Date Recorded In the past 12 months, has l ack of transportation kept you from medical appts, meetings, work or from getting things needed for daily living? No 11/01/2023 Utilities Answer Date Recorded In the past 12 months, has t he electric, gas, oil or water company threatened to shut off services in your home? No 11/01/2023 Depression Answer Date Recorded Patient Health Questionnaire-2 Score 0 11/01/2023 Sex and Gender Information Value Date Recorded Sex Assigned at Male 07/04/2022 10:21 AM EDT Legal Sex Male 10:21 AM EDT Gender Identity Male 07/04/2022 10:21 AM EDT Sexual Orientation Straight 07/04/2022 10 :21 AM EDT documented as of this encounter Last Filed Vital Signs Vital Sign Reading Time Taken Comments Blood Pressure 130/80 09/25/2024 10:12 AM EST Pulse 62 09/25/2024 10:12 AM EST Temperature 36.5 ??C (97.7 ??F) 09/25/2024 10:[address] Respiratory Rate 16 09/25/2024 10:12 AM EST Oxygen Saturation 98% 09/25/2024 10:12 AM EST Inhaled Oxygen Concentration - - Weight 124 kg (274 lb) 09/25/2024 10:12 AM EST Height 170.2 cm (5' 7 ) 09/25/2024 10:12 AM EST Body Mass Index 42.91 09/25/2024 10:12 AM EST documented in this encounter Miscellaneous Notes * Assessment & Plan Note - Berenice Yoder NP - 09/25/2024 12:06 PM ESTAssociated Problem(s): Anemia -mild anemia suspected to be r/t iron deficiency -discussed increasing dietary sources of iron -consider further testing for possible hemochromatosis given persistent abnormal liver enzymes * Assessment & Plan Note - Berenice Yoder NP - 09/25/2024 12:03 PM ESTAssociated Problem(s): Overweight Dietary Recommendations: Fruits, vegetables, whole grains, protein foods, and fat-free or low-fat dairy products are healthychoices. Eat different types of protein foods in your diet. This can include seafood, lean meats, poultry, beans, peas, lentils, nuts, seeds, soy products, and eggs. Limit foods and beverages higher in added sugars, saturated fat, and sodium. Exercise Recommendations: At least 150 minutes of moderate-intensity physical activity per week, or an equivalent combinationof moderate- and vigorous-intensity activity -A1c 4.9% as of 09/18/24 -lipid ordered today -will assess his desire for and discuss potential plan for weight management at follow-up * Assessment & Plan Note - Berenice Yoder NP - 09/25/2024 10:13 AM ESTAssociated Problem(s): Abnormal liver enzymes -persistenlt elevated -GI referral placed for further work-up * Assessment & Plan Note - Berenice Yoder NP - 09/25/2024 10:13 AM ESTAssociated Problem(s): Low serum thyroid stimulating hormone (TSH) -TSH 0.7 uIU/mL with normal free T4 of .94 ng/dL -subclinical nature -Will repeat in 3 months with T3 as patient is asymptomatic currently -monitoring parameters reviewed documented in this encounter Plan of Treatment Scheduled Orders Name Type Priority Associated Diagnoses Orde r Schedule Hepatitis C Antibody with Reflex to HCV, RNA, Quantitative, Real-Time PCR Lab Routine Abnormal liver enzymes Expected: 09/25/2024 (Approximate), Expires: 09/25/2025 Hepatitis A Antibody, Total Lab Routine Abnormal liver enzymes Expected: 09/25/2024 (Approximate), Expires: 09/25/2025 Scheduled Referrals Name Type Priority Associated Diagnoses Orde r Schedule Referral to [facility] Referral Routine Encounter for physical examination Expected: 09/25/2024 (Approximate), Expires: 09/25/2025 documented as of this encounter Procedures Procedure Name Priority Date/Time Associated Diagnosis Comments LIPID PANEL, STANDARD Routine 09/25/2024 11:13 AM EST Overweight BASIC METABOLIC PANEL Routine 09/25/2024 11:13 AM EST Overweight documented in this encounter Results * Basic Metabolic Panel (09/25/2024 11:13 AM EST) Sodium 136 135 - 145 mmol/L [facility] Potassium 4.1 3.3 - 5.1 mmol/L [facility] Chloride 102 96 - 108 mmol/L [facility] Carbon Dioxide 26 22 - 29 mmol/L [facility] Anion Gap 12 12 - 20 [facility] Urea Nitrogen (BUN) 12 9 - 16 mg/dL [facility] Creatinine, Serum 0.82 0.5 - 1.4 mg/dL [facility] Estimated Glomerular Filt Rate >60 [facility] Comment:Chronic Kidney Disea se: Estimated GFR < 60 mL/min/1.30j4Ayzyup Kidney Disease: Estimated GFR < 15 mL/min/1.73m2 Glucose 88 60 - 115 mg/dL [facility] Calcium 9.1 8.4 - 10.2 mg/dL [facility] Blood Venous blood specimen / Unknown 09/25/2024 11:13 AM EST 09/25/2024 12:05 PM EST us Berenice Yoder ANIMAL PHYSIOLOGIST LAB BLOOD ORDERABLES Final Resu lt [facility] [address] [place] [address] [phone] * (ABNORMAL) Lipid Panel, Standard (09/25/2024 11:13 AM EST) Triglycerides 265(H) <150 mg/dL [facility] Comment:Desirable Triglyceri de: less than 150 mg/dLBorderline High Triglyceride 150-199 mg/dLHigh Triglyceride: 200-499 mg/dLVery High Triglyceride: greater than or equal to 5OO mg/dL Cholesterol 201(H) <200 mg/dL [facility] Comment:Desirable Cholestero l: less than 200 mg/dLBorderline High Cholesterol: 200-239 mg/dLHigh Cholesterol: greater than 239 mg/dL LDL Cholesterol Calculated 120(H) <100 mg/dL [facility] Comment:Desirable LDL: less than 100 mg/dLNear Optimal/Above Optimal LDL: 110- 129 mg/dLBorderline High LDL: 130-159 mg/dLHigh LDL: 160-189 mg/dLVery High LDL: greater than or equal to 190 mg/dL HDL Cholesterol 28(L) >40 mg/dL [facility] Comment:Desirable HDL: great er than 40 mg/dL Note: This HDL assay may give artificially low results in patients with liver disease. Blood Venous blood specimen / Unknown 09/25/2024 11:13 AM EST 09/25/2024 12:05 PM EST us Berenice Yoder NP LAB BLOOD ORDERABLES Final Resu lt [facility] [address] [place] [address] [phone] documented in this encounter Visit Diagnoses Diagnosis Encounter for physical examination- Primary Abnormal liver enzymes Anemia, unspecified type Low serum thyroid stimulating hormone (TSH) Overweight Hypovitaminosis D Unspecified vitamin D deficiency documented in this encounter Additional Health Concerns Assessment Noted Time PHQ-9 Depression Total Score: 0 11/01/19 24 3:16 PM EST documented as of this encounter Care Teams Property Utilization Manager Relationship Specialty Start Date End Date Berenice Yodre NP [address] [place] [phone] PCP - General Family Medicine 06/13/23 documented as of this encounter
--- OUTSIDE RECORDS SUMMARY | 2024-09-25 12:37 | XMS_ITS | Encounter Summary ---
Author Organization [employer] Address [address] [place] [address] Care Team Providers Care Dewaterer Operator Name Role Phone Beba Berenice TOMLINSON Primary Care Provider [phone] Encounter Details Date Type Department Care Team ([facility] st Contact Info) Description 09/19/2024 Telephone [facility] [address] [place] [address] Marisabel Rosales, SWATI Social History Tobacco Use Types Packs/Day Years Used Date Smoking Tobacco: Former Cigarettes Passive Smoke Exposure: Past Smokeless Tobacco: Never Alcohol Use Standard Drinks/Week Comments Never 0 (1 standard drink = 0.6 oz pur e alcohol) Depression Answer Date Recorded Patient Health Questionnaire-9 [...] AM EDT documented as of this encounter Miscellaneous Notes * Telephone Encounter - Marisabel Rosales RN - 09/19/2024 12:02 PM EST ----- Message from Norm Mazariegos MD sent at 09/19/2024 11:41 AM EST ----- Could you please inform patient that his pancreatic enzyme levels were normal? This was ordered back in 01/2024, but just got done with some labs that his PCP (Beba) ordered. TC placed to inform pt of above message from provider. Pt reminded of upcoming appointment with PCPon 09/25/24 at 10:00 AM. Pt verbalized understanding and denies any further questions at this time. documented in this encounter Plan of Treatment Not on file documented as of this encounter Visit Diagnoses Not on filedocumented in this encounter Additional Health Concerns Assessment Noted Time PHQ-9 Depression Total Score: 0 11/01/19 24 3:16 PM EST documented as of this encounter Care Teams Dewaterer Operator Relationship Specialty Start Date End Date Berenice Yoder NP [address] [place] [address] PCP - General Family Medicine 06/13/23 documented as of this encounter
--- OUTSIDE RECORDS SUMMARY | 2024-09-25 12:37 | XMS_ITS | Encounter Summary ---
Demographics Address [address] [place] [address] Mobile Phone Work Phone Home Phone Preferred Language en Marital Status Single Adventist Affiliation Unknown Race Other Race Ethnic Group or Author Organization [employer] Address [address] [place] [address] Care Team Providers Care Filling Technician Name Role Phone Berenice Yoder DAVI Primary Care Provider [phone] Encounter Details Date Type Department Care Team (Latest Contact Info) Description 09/25/2024 Travel Social History Tobacco Use Types Packs/Day Years [...] AM EDT documented as of this encounter Plan of Treatment Not on file documented as of this encounter Visit Diagnoses Not on filedocumented in this encounter Additional Health Concerns Assessment Noted Time PHQ-9 Depression Total Score: 0 11/01/19 24 3:16 PM EST documented as of this encounter Care Teams Filling Technician Relationship Specialty Start Date End Date Berenice Yoder NP [address] [place] [phone] PCP - General Family Medicine 06/13/23 documented as of this encounter
--- OUTSIDE RECORDS SUMMARY | 2024-09-25 12:37 | XMS_ITS | Clinical Summary ---
Demographics Address [address] [place] [address] [address] [place] [address] Mobile Phone Work Phone Home Phone Preferred Language en Marital Status Single Roman Catholic Affiliation Unknown Race Other Race Ethnic Group or Author Organization [employer] Address [address] [facility] [address] [place] [address] Care Team Providers Care Sound Technician Name Role Phone Beba Berenice TOMLINSON Primary Care Provider [phone] Allergies Active Allergy Reactions Criticality Noted Date Comments Amoxicillin 03/31/2021 Other reaction(s): Skin irritation Clavulanic Acid 03/31/2021 Other reaction(s): Skin irritation Cyclobenzaprine 12/17/2014 Medications Diclofenac Sodium (Voltaren) 1 % gel Apply topically every 12 (twelve) hours. 1 Active methadone (Dolophine) 10 MG/5ML solution Take by mouth. Active halobetasol (UltraVATE) 0.05 % creamIndication s:Scar tissue Apply a pea size amount to affected area four times a day. Do not apply on face or genital areas 15 g 2 4 Active ibuprofen 800 MG tabletIndicatio ns:Pain TAKE 1 TABLET BY MOUTH EVERY 8 HOURS IF NEEDED TAKE WITH FOOD 60 tablet 4 Active omeprazole (PriLOSEC) [address] capsuleIndicati ons:Gastroesoph ageal reflux disease without esophagitis TAKE 1 CAPSULE BY MOUTH EVERY DAY BEFORE A MEAL 90 capsule 4 Active cholecalciferol (Vitamin D-3) 20 MCG (800 UNIT) tabletIndicatio ns:Hypovitamino sis D Take 1 tab by mouth daily 30 tablet 2 5 Active cholecalciferol (Vitamin D-3) 50 MCG (2000 UT) tablet Take 1 tablet by mouth in the morning. 0 09/25/19 25 Discontinu ed(Alterna te therapy) Active Problems Problem Noted Date Diagnosed Date Low serum thyroid stimulating hormone (TSH) 09/05 Assessment & Plan (09/25/2024 12:08 PM EST): -TSH 0.7 uIU/mL with normal free T4 of .94 ng/dL -subclinical nature -Will repeat in 3 months with T3 as patient is asymptomatic currently -monitoring parameters reviewed Anemia 09/25/2024 Assessment & Plan (09/25/2024 12:06 PM EST): -mild anemia suspected to be r/t iron deficiency -discussed increasing dietary sources of iron -consider further testing for possible hemochromatosis given persistent abnormal liver enzymes Encounter for physical examination 09/25/2024 Abnormal liver enzymes 04/22/2024 Assessment & Plan (09/25/2024 10:13 AM EST): -persistenlt elevated -GI referral placed for further work-up Assessment & Plan (04/22/2024 1:23 AM EDT): -CT of abdomen without acute abnormality -repeat hepatic function labs ordered today -rule out hematochromatosis with iron panel -referred to GI further evaluation on 01/01/24 -consider TB testing and chest x-ray pending persistent symptoms -follow-up 1 month Hot flashes 01/22/2024 Assessment & Plan (01/22/2024 5:55 PM EDT): -question thyroid dysfunction or DM. DDX also include lymphoma and pheochromocytoma although patient does not exhibit full characteristics of -labs ordered. Will carry out further testing/ treat pending results. -will call with lab results and follow-up Scar tissue 01/22/2024 Assessment & Plan (04/22/2024 1:25 AM EDT): -trial halobetasol topically -will refer to derm clinic for kenalog injections if no improvement Assessment & Plan (01/22/2024 5:54 PM EDT): -informed patient that it takes a while for the scars to resolve or reduce in pigmentation -advised to trial OTC ScarAway again massaging it into the skin rather than just applying -if no improvement, will trial topical steroids such as halobetasol or betamethasone valerate Mixed hypercholesterolemia and hypertriglyceride katiana 11/01/2023 Methadone dependence 12/15/2017 Gastroesophageal reflux disease 12/17/2014 06/22/2023 Chronic hepatitis C 12/17/2014 Mood disorder 12/17/2014 Opioid abuse 12/17/2014 Overweight 06/29/2014 Assessment & Plan (09/25/2024 12:03 PM EST): Dietary Recommendations: Fruits, vegetables, whole grains, protein foods, and fat-free or low-fat dairy products are healthy choices. Eat different types of protein foods in your diet. This can include seafood, lean meats, poultry, beans, peas, lentils, nuts, seeds, soy products, and eggs. Limit foods and beverages higher in added sugars, saturated fat, and sodium. Exercise Recommendations: At least 150 minutes of moderate-intensity physical activity per week, or an equivalent combination of moderate- and vigorous-intensity activity -A1c 4.9% as of 09/18/24 -lipid ordered today -will assess his desire for and discuss potential plan for weight management at follow-up Encounters Date Type Department Care Team Description 09/25/2024 10:00 AM EST Office Visit [address] [address] Berenice Yoder NP Encounter for physical examination (Primary Dx); Abnormal liver enzymes; Anemia, unspecified type; Low serum thyroid stimulating hormone (TSH); Overweight; Hypovitaminosis D 09/25/2024 Travel 09/19/[address] [address] Marisabel Rosales RN 09/18/2024 10:30 AM EST Office Visit [address] [address] Berenice Yoder NP Encounter for immunization (Primary Dx); Abnormal liver enzymes; Screening-pulmonary TB 09/18/2024 Orders Only [address] [address] Berenice Yoder NP 09/18/2024 Travel 09/12/[address] [place] [address] Gladis Collins MA chartprep 09/02/2024 Telephone [facility] [address] [place] [address] Gladis Collins MA Appointment 08/29/2024 Telephone [facility] [address] [place] [address] Berenice Yoder NP Appointment Request from Last 3 Months Immunizations Name Administration Dates Next Due Hep B, adult 09/18/2024,07/23/2001 Influenza, IIV3, injectable 06/26/2014 Influenza, Split (incl. purified surface antigen ) 12/05/2013,10/02/2012 Pneumococcal Polysaccharide PPSV23 06/21/2016 Tdap 09/18/2024,10/02/2012 Family History Medical History Relation Name Comments Lupus Father Stroke Father Relation Name Status Comments Father Social History Tobacco Use Types Packs/Day Years Used Date Smoking Tobacco: Former Cigarettes Passive Smoke Exposure: Past Smokeless Tobacco: Never Tobacco Cessation:Counseling Given: Not Answered Alcohol Use Standard Drinks/Week Comments Never 0 [...] Orientation Straight 07/04/2022 10 :21 AM EDT Last Filed Vital Signs Vital Sign Reading [...] Mass Index 42.91 09/25/2024 10:12 AM EST Plan of Treatment Health Maintenance Due Date Last Done Comments Dental X-Ray: Full Mouth 1983 HIV Screening 1983 Family Planning (PISQ) 1998 Hepatitis A Vaccines (1 of 2 - Risk 2-dose series) 2002 Dental Prophylaxis 05/15/2023 11/11/2022 Dental Oral Exam 05/01/2024 10/31/2023, 11/11/2022 COVID-19 Vaccine (1 - 2023-2 5 season) 2024 Influenza Vaccine (#1) 2024 4, 12/05/2013, 10/02/2012 Dental X-Ray: Bitewings 11/01/2024 10/31/19 24, 11/11/2022 Depression Screening 11/01/2024 11/01/2023, 11/01/2023 SDOH Screening 11/01/2024 11/01/2023 Hepatitis B Vaccines (3 of 3 - 3-dose series) 11/13/2024 09/18/2024, 07/23/2001 Alcohol/Substance Use Screening 09/18/2025 09/18/2024 Tobacco Screening 09/18/2025 09/18/2024 Lipid Panel 10/20/2026 09/25/2024, 10/20/2021, 2020 Zoster Vaccines (1 of 2) 2033 DTaP/Tdap/Td Vaccines (3 - T d or Tdap) 09/18/2034 09/18/2024, 10/02/2012 RSV Patients and Patients Aged 60 years or older (1 - 1-dose 75+ series) 2058 Pneumococcal Vaccine: Pediatrics (0 to 5 Years) and At-Risk Patients (6 to 64 Years) Aged Out 06/21/2016 No longer eligible b ased on patient's age to complete this topic HIB Vaccines Aged Out No longer eligi ble based on patient's age to complete this topic HPV Vaccines Aged Out No longer eligi ble based on patient's age to complete this topic IPV Vaccines Aged Out No longer eligi ble based on patient's age to complete this topic Meningococcal Vaccine Aged Out No lita christiano eligible based on patient's age to complete this topic RSV under 20 months Aged Out No longe r eligible based on patient's age to complete this topic Rotavirus Vaccines Aged Out No longer eligible based on patient's age to complete this topic Procedures Procedure Name Priority Date/Time Associated Diagnosis Comments BASIC METABOLIC PANEL Routine 09/25/2024 11:13 AM EST Overweight LIPID PANEL, STANDARD Routine 09/25/2024 11:13 AM EST Overweight T4, FREE Routine 09/18/2024 11:47 AM EST TSH W/REFLEX TO FT4 Routine 09/18/2024 1 1:47 AM EST HEMOGLOBIN A1C Routine 09/18/2024 11:47 AM EST CBC WITH AUTO DIFFERENTIAL Routine 09/18/2024 11:47 AM EST T-SPOT(R).TB Routine 09/18/2024 11:47 AM EST Screening-pulmonary TB HEPATIC FUNCTION PANEL Routine 09/18/2024 11:47 AM EST Abnormal liver enzymes LIPASE Routine 09/18/2024 11:47 AM EST Hepatitis AMYLASE Routine 09/18/2024 11:47 AM EST Hepatitis BITEWINGS - 2 RADIOGRAPHIC IMAGES Routine 10/31/2023 8:00 AM EST PERIODIC ORAL EVALUATION - ESTABLISHED PATIENT Routine 10/31/2023 8:00 AM EST Full PROPHYLAXIS - ADULT Routine 11/11/2022 8:00 AM EST Dental caries from Last 3 Months or Most Recently Relevant to Health Maintenance Results * (ABNORMAL) Lipid Panel, Standard (09/25/2024 11:13 AM EST) Triglycerides 265(H) <150 mg/dL [facility] Comment:Desirable Triglyceri de: less than 150 mg/dLBorderline High Triglyceride 150-199 mg/dLHigh Triglyceride: 200-499 mg/dLVery High Triglyceride: greater than or equal to 5OO mg/dL Cholesterol 201(H) <200 mg/dL [facility] Comment:Desirable Cholestero l: less than 200 mg/dLBorderline High Cholesterol: 200-239 mg/dLHigh Cholesterol: greater than 239 mg/dL LDL Cholesterol Calculated 120(H) <100 mg/dL [facility] Comment:Desirable LDL: less than 100 mg/dLNear Optimal/Above Optimal LDL: 110- 129 mg/dLBorderline High LDL: 130-159 mg/dLHigh LDL: 160-189 mg/dLVery High LDL: greater than or equal to 190 mg/dL HDL Cholesterol 28(L) >40 mg/dL [facility] Comment:Desirable HDL: great er than 40 mg/dL Note: This HDL assay may give artificially low results in patients with liver disease. Blood Venous blood specimen / Unknown 09/25/2024 11:13 AM EST 09/25/2024 12:05 PM EST [facility] [employer] LAB BLOOD ORDERABLES Final Resu lt Performing Organization Address [facility] Co de Phone Number [facility] [address] [place] [address] [phone] * Basic Metabolic Panel (09/25/2024 11:13 AM EST) Sodium 136 135 - 145 mmol/L [facility] Potassium 4.1 3.3 - 5.1 mmol/L [facility] Chloride 102 96 - 108 mmol/L [facility] Carbon Dioxide 26 22 - 29 mmol/L [facility] Anion Gap 12 12 - 20 [facility] Urea Nitrogen (BUN) 12 9 - 16 mg/dL [facility] Creatinine, Serum 0.82 0.5 - 1.4 mg/dL [facility] Estimated Glomerular Filt Rate >60 [facility] Comment:Chronic Kidney Disea se: Estimated GFR < 60 mL/min/1.78f5Vpcxtn Kidney Disease: Estimated GFR < 15 mL/min/1.73m2 Glucose 88 60 - 115 mg/dL [facility] Calcium 9.1 8.4 - 10.2 mg/dL [facility] Blood Venous blood specimen / Unknown 09/25/2024 11:13 AM EST 09/25/2024 12:05 PM EST [facility] [employer] LAB BLOOD ORDERABLES Final Resu lt Performing Organization Address [facility]/ZIP Co de Phone Number [facility] [address] [place] [address] [phone] * T-SPOT??.TB (09/18/2024 11:47 AM EST) T Spot TB Negative Negative [facility] Comment:A negative test resu lt does not exclude the possibilityof exposure to or infection with Mycobacteriumtuberculosis (M. tuberculosis). Patients with recentexposure to TB infected individuals exhibiting anegative T-SPOT.TB result should be considered forretesting within 6 weeks or if other relevant clinicalsymptoms indicate. Results from T-SPOT.TB testing mustbe used in conjunction with each individual'sepidemiological history, current medical status,and results of other diagnostic evaluations.The T-SPOT.TB test is qualitative and results arereported as positive, borderline, or negative, giventhat the test controls perform as expected. In linewith the Centers for Disease Control and Prevention's2010 recommendation to report quantitative measurementsalongside the qualitative result, the laboratoryprovides spot counts for informational purposes only.The T-SPOT.TB test should not be interpreted as aquantitative test. TS PANEL A 0 [facility] TS PANEL B 0 [facility] Negative Control Passed [facility] Positive Control Passed [facility] Comment:For additional infor mation, please refer tohttp://education.Outernet/faq/QDB628(This link is being provided for informational/educational purposes only.)THIS TEST WAS PERFORMED AT:[employer] [id number] [place] [address]BYJNXGBJUSTIN JANSEN MD,PHD 09/18/2024 11:4 7 AM EST 09/18/2024 1:02 PM EST [employer] LAB BLOOD ORDERABLES Final Resu lt [facility] [address] [place] [phone] * (ABNORMAL) TSH with Reflex to Free T4 (09/18/2024 11:47 AM EST) TSH reflex Free T4 0.07(L) 0.32 - 4.0 uIU/mL [facility] 09/18/2024 11:4 7 AM EST 09/18/2024 1:02 PM EST Berenice Yoder [employer] LAB BLOOD ORDERABLES Final Resu lt [facility] [address] [place], [place] [phone] * (ABNORMAL) CBC auto differential (09/18/2024 11:47 AM EST) White Blood Count 3.2(L) 4.8 - 10.8 X10*3/uL [facility] Red Blood Count 4.99 4.60 - 5.80 X10*6/uL [facility] Hemoglobin 13.7(L) 14.0 - 18.0 g/dl [facility] Hematocrit 41.1(L) 42.0 - 52.0 % [facility] Mean Corpuscular Volume 82.4 80.0 - 98.0 fL [facility] Mean Corpuscular Hemoglobin 27.5 27.0 - 33.0 pg [facility] Mean Corpuscular HGB Conc 33.3 31.0 - 36.0 g/dl [facility] Red Cell Distribution Width 14.3 11.0 - 16.0 % [facility] Platelet Count 221 160 - 400 X10*3/uL [facility] Mean Platelet Volume 9.4 9.4 - 12.4 fL [facility] Neutrophils Percent Auto 45.3 45 - 73 % [facility] Imm Gran Pct Auto 0.3 0.0 - 0.4 % [facility] Lymphocytes Percent Auto 36.3 20 - 40 % [facility] Monocytes Percent Auto 13.8(H) 2 - 11 % [facility] Eosinophils Percent Auto 3.4 0 - 4 % [facility] Basophils Percent Auto 0.9 0 - 2 % [facility] NRBC Pct Auto 0.0 0.0 - 0.2 /100WBC [facility] Neutrophils Absolute Auto 1.5(L) 2.0 - 8.3 x10*3/uL [facility] Imm Gran Abs Auto 0.01 0.00 - 0.03 X10*3/uL [facility] Lymphocytes Absolute Auto 1.2 1.2 - 4.9 X10*3/uL [facility] Monocytes Absolute Auto 0.4 0.1 - 1.2 X10*3/uL [facility] Eosinophils Absolute Auto 0.1 0.0 - 0.4 X10*3/uL [facility] Basophils Absolute Auto 0.0 0.0 - 0.2 X10*3/uL [facility] NRBC Abs Auto 0.000 0.0 - 0.012 X10*3/uL [facility] 09/18/2024 11:4 7 AM EST 09/18/2024 1:02 PM EST Berenice Yoder [employer] LAB BLOOD ORDERABLES Final Resu lt Performing Organization Address [facility] Co de Phone Number [facility] [address] [place] [phone] * T4, Free (09/18/2024 11:47 AM EST) Free T4 (Free Thyroxine) 0.94 0.71 - 1.85 ng/dL [facility] 09/18/2024 11:4 7 AM EST 09/18/2024 1:02 PM EST Berenice Yoder MERCH[employer]PER[employer] LAB BLOOD ORDERABLES Final Resu lt Performing Organization Address [facility]/ZIP Co de Phone Number [facility] [address] [place] [phone] * Lipase (09/18/2024 11:47 AM EST) Lipase 13 8 - 78 U/L [facility] Blood Venous blood specimen / Unknown 09/18/2024 11:47 AM EST 09/18/2024 1:02 PM EST us Norm Mazariegos MD LAB BLOOD ORDERABLES Final Resul t Performing Organization Address City/[facility]/ZIP Co de Phone Number [facility] [address] [place] [phone] * Hemoglobin A1c (09/18/2024 11:47 AM EST) Hemoglobin A1c 4.9 <6.0 % [facility] Comment:Hemoglobin A1C Refer ence Range Adults: 4.8 - 6.0 % Non diabetic: < 6.0 % Goal: < 7.0 %Additional Action Suggested: > 8.0 %Note: Hemoglobin A1c results are invalid for patients with abnormal amounts of HbF. Blood transfusions may impact the HbA1c concentration in the patient sample. Estimated Average Glucose 94 mg/dL [facility] Comment:eAG = Estimated ave rage glucose which is %A1C expressed asaverage glucose, using the formula of the J5O-WonywtcBstlcdn Glucose study (ADAG), Diabetes Care, Vol.31,#8,Apr. 2007 09/18/2024 11:4 7 AM EST 09/18/2024 1:02 PM EST Berenice Yoder NP LAB BLOOD ORDERABLES Final Resu lt [facility] [address] [place] [phone] * Amylase (09/18/2024 11:47 AM EST) Amylase 40 28 - 100 U/L [facility] Blood Venous blood specimen / Unknown 09/18/2024 11:47 AM EST 09/18/2024 1:02 PM EST Norm Mazariegos MD LAB BLOOD ORDERABLES Final Resul t Performing Organization Address City/[facility]/ZIP Co de Phone Number [facility] [address] [place] [phone] * (ABNORMAL) Hepatic Function Panel (09/18/2024 11:47 AM EST) Bilirubin, Total 1.9(H) 0.0 - 1.0 mg/dL [facility] Bilirubin, Direct 1.2(H) 0.0 - 0.5 mg/dL [facility] Aspartate Amino Transferase 150(H) 5 - 37 U/L [facility] Alanine Aminotransferase 125(H) 0 - 40 U/L [facility] Total Protein 8.6(H) 6.5 - 8.0 g/dL [facility] Albumin Level 3.9 3.5 - 5.0 g/dL [facility] Alkaline Phosphatase 216(H) 39 - 117 U/L [facility] Blood Venous blood specimen / Unknown 09/18/2024 11:47 AM EST 09/18/2024 1:02 PM EST Berenice Yoder NP LAB BLOOD ORDERABLES Final Resu lt [facility] [address] [place] [phone] from Last 3 Months Insurance [facility] C3 DENTAL-[facility] MEDICAID STAND ADULT Care Teams Sound Technician Relationship Specialty Start Date End Date Berenice Yoder NP [address] [place] [phone] PCP - General Family Medicine 06/13/23
--- OUTSIDE RECORDS SUMMARY | 2024-09-25 12:38 | XMS_ITS | Encounter Summary ---
Author Organization [employer] Address [address] [place] [address] Care Team Providers Care Collating Machine Operator Name Role Phone Berenice Yoder DAVI Primary Care Provider [phone] Encounter Details Date Type Department Care Team (Latest Contact Info) Description 09/18/2024 Travel Social History Tobacco Use Types Packs/Day [...] documented as of this encounter Care Teams Collating Machine Operator Relationship Specialty Start Date End Date Berenice Yoder NP [address] [place] [phone] PCP - General Family Medicine 06/13/23 documented as of this encounter
--- OUTSIDE RECORDS SUMMARY | 2024-09-25 12:38 | XMS_ITS | Encounter Summary ---
Author Organization [employer] Address [address] [facility] [address] [place] [address] Care Team Providers Care Lodge Sales Associate Name Role Phone Beba Berenice TOMLINSON Primary Care Provider [phone] Reason for Visit * Reason Onset Date Comments chartprep 09/12/2024 Encounter Details Date Type Department Care Team ([facility] st Contact Info) Description 09/12/2024 Telephone [facility] [address] [place] [address] Gladis Collins MA chartprep Social History Tobacco Use Types Packs/Day Years [...] encounter Miscellaneous Notes * Telephone Encounter - Gladis Collins MA - 09/12/2024 10:22 AM EST Chart Prep Labs: done Images: done Vaccines due: Covid Due, Tdap Due, Hep A Due, Hep B Due, and Flu Due Referrals: Completed Screenings: HIV screening Overdue care gaps: [facility] and Oral Health documented in this encounter Plan of Treatment Not on file documented as of this encounter Visit Diagnoses Not on filedocumented in this encounter Additional Health Concerns Assessment Noted Time PHQ-9 Depression Total Score: 0 11/01/19 24 3:16 PM EST documented as of this encounter Care Teams Lodge Sales Associate Relationship Specialty Start Date End Date Berenice Yoder NP [address] [place] [address] PCP - General Family Medicine 06/13/23 documented as of this encounter
--- OUTSIDE RECORDS SUMMARY | 2024-09-25 12:38 | XMS_ITS | Encounter Summary ---
Author Organization [employer] Address [address] [place] [address] Care Team Providers Care Circulation Director Name Role Phone Berenice Yoder NP Primary Care Provider [phone] Encounter Details Date Type Department Care Team ([facility] st Contact Info) Description 09/18/2024 Orders Only [facility] MEDICINE [address] [place] [address] Berenice Yoder NP [address] [place] [address] Social History Tobacco Use Types Packs/Day Years [...] on file documented as of this encounter Procedures Procedure Name Priority Date/Time Associated Diagnosis Comments TSH W/REFLEX TO FT4 Routine 09/18/2024 1 1:47 AM EST CBC WITH AUTO DIFFERENTIAL Routine 09/18/2024 11:47 AM EST T4, FREE Routine 09/18/2024 11:47 AM EST HEMOGLOBIN A1C Routine 09/18/2024 11:47 AM EST documented in this encounter Results * T4, Free (09/18/2024 11:47 AM EST) Free T4 (Free Thyroxine) 0.94 0.71 - 1.85 ng/dL [facility] 09/18/2024 11:4 7 AM EST 09/18/2024 1:02 PM EST us Berenice Yoder [employer] LAB BLOOD ORDERABLES Final Resu lt [facility] [address] [place] [phone] * (ABNORMAL) TSH with Reflex to Free T4 (09/18/2024 11:47 AM EST) TSH reflex Free T4 0.07(L) 0.32 - 4.0 uIU/mL [facility] 09/18/2024 11:4 7 AM EST 09/18/2024 1:02 PM EST Berenice Latham [employer] LAB BLOOD ORDERABLES Final Resu lt Performing Organization Address [facility] Co de Phone Number [facility] [address] [place] [phone] * Hemoglobin A1c (09/18/2024 11:47 AM EST) Hemoglobin A1c 4.9 <6.0 % [facility] Comment:Hemoglobin A1C Refer ence Range Adults: 4.8 - 6.0 % Non diabetic: < 6.0 % Goal: < 7.0 %Additional Action Suggested: > 8.0 %Note: Hemoglobin A1c results are invalid for patients with abnormal amounts of HbF. Blood transfusions may impact the HbA1c concentration in the patient sample. Estimated Average Glucose 94 mg/dL [facility] Comment:eAG = Estimated ave rage glucose which is %A1C expressed asaverage glucose, using the formula of the G2H-NunxjytGxuzxzr Glucose study (ADAG), Diabetes Care, Vol.31,#8,2007 09/18/2024 11:4 7 AM EST 09/18/2024 1:02 PM EST Berenice Latham [employer] LAB BLOOD ORDERABLES Final Resu lt Performing Organization Address [facility] Co de Phone Number [facility] [address] [place] [phone] * (ABNORMAL) CBC auto differential (09/18/2024 11:47 AM EST) White Blood Count 3.2(L) 4.8 - 10.8 X10*3/uL [facility] Red Blood Count 4.99 4.60 - 5.80 X10*6/uL [facility] Hemoglobin 13.7(L) 14.0 - 18.0 g/dl [facility] Hematocrit 41.1(L) 42.0 - 52.0 % [facility] Mean Corpuscular Volume 82.4 80.0 - 98.0 fL [facility] Mean Corpuscular Hemoglobin 27.5 27.0 - 33.0 pg [facility] Mean Corpuscular HGB Conc 33.3 31.0 - 36.0 g/dl [facility] Red Cell Distribution Width 14.3 11.0 - 16.0 % [facility] Platelet Count 221 160 - 400 X10*3/uL [facility] Mean Platelet Volume 9.4 9.4 - 12.4 [facility] Neutrophils Percent Auto 45.3 45 - 73 % [facility] Imm Gran Pct Auto 0.3 0.0 - 0.4 % [facility] Lymphocytes Percent Auto 36.3 20 - 40 % [facility] Monocytes Percent Auto 13.8(H) 2 - 11 % [facility] Eosinophils Percent Auto 3.4 0 - 4 % [facility] Basophils Percent Auto 0.9 0 - 2 % [facility] NRBC Pct Auto 0.0 0.0 - 0.2 /100WBC [facility] Neutrophils Absolute Auto 1.5(L) 2.0 - 8.3 x10*3/uL [facility] Imm Gran Abs Auto 0.01 0.00 - 0.03 X10*3/uL [facility] Lymphocytes Absolute Auto 1.2 1.2 - 4.9 X10*3/uL [facility] Monocytes Absolute Auto 0.4 0.1 - 1.2 X10*3/uL [facility] Eosinophils Absolute Auto 0.1 0.0 - 0.4 X10*3/uL [facility] Basophils Absolute Auto 0.0 0.0 - 0.2 X10*3/uL [facility] NRBC Abs Auto 0.000 0.0 - 0.012 X10*3/uL [facility] 09/18/2024 11:4 7 AM EST 09/18/2024 1:02 PM EST us Berenice Lathamm [employer] LAB BLOOD ORDERABLES Final Resu lt [facility] [address] [place] [phone] [phone] documented in this encounter Visit Diagnoses Not on filedocumented in this encounter Additional Health Concerns Assessment Noted Time PHQ-9 Depression Total Score: 0 11/01/19 24 3:16 PM EST documented as of this encounter Care Teams Circulation Director Relationship Specialty Start Date End Date Berenice Yoder NP [address] [place] [phone] PCP - General Family Medicine 06/13/23 documented as of this encounter
--- OUTSIDE RECORDS SUMMARY | 2024-09-25 12:38 | XMS_ITS | Encounter Summary ---
Author Organization [employer] Address [address] 7[address] [place] [address] Care Team Providers Care Preparation Supervisor Name Role Phone Beba Berenice TOMLINSON Primary Care Provider [phone] Reason for Visit * Reason Onset Date Comments Appointment 09/02/2024 Encounter Details Date Type Department Care Team ([facility] st Contact Info) Description 09/02/2024 Telephone [facility] MEDICINE [address] [place] [address] Gladis Collins [place] Appointment Social History Tobacco Use Types Packs/Day Years [...] Telephone Encounter - Gladis Collins MA - 09/02/2024 8:49 AM EST T/C placed spoke with pt, pt agreed to come in on 09/18/24 @ 10:30 am for follow up appointment. Pt is requesting a letter for back to work. documented in this encounter Plan of Treatment Not on file documented as of this encounter Visit Diagnoses Not on filedocumented in this encounter Additional Health Concerns Assessment Noted Time PHQ-9 Depression Total Score: 0 11/01/19 24 3:16 PM EST documented as of this encounter Care Teams Preparation Supervisor Relationship Specialty Start Date End Date Berenice Yoder NP [address] [place] [address] PCP - General Family Medicine 06/13/23 documented as of this encounter
--- OUTSIDE RECORDS SUMMARY | 2024-09-25 12:38 | XMS_ITS | Encounter Summary ---
Author Organization [employer] [facility] Address [address] 7t [place] [address] Care Team Providers Care Lead Fire Protection Engineer Name Role Phone Berenice Yoder NP Primary Care Provider [phone] Reason for Visit * Reason Comments Med Refill Encounter Details Date Type Department Care Team ([facility] st Contact Info) Description 09/27/2023 Refill [facility] MEDICINE [address] [place] [address] Name, MD Dennis [address] [place] [address] Gastroesophageal reflux disease without esophagitis Social History Tobacco Use Types Packs/Day Years Used Date Smoking Tobacco: Former Cigarettes Passive Smoke Exposure: Past Smokeless Tobacco: Never Alcohol Use Standard Drinks/Week Comments Never 0 (1 standard drink = 0.6 oz pur e alcohol) Sex and Gender Information Value Date Recorded Sex Assigned at Male 07/04/2022 10:21 AM EDT Legal Sex Male 10:21 AM EDT Gender Identity Male 07/04/2022 10:21 AM EDT Sexual Orientation Straight 07/04/2022 10 :21 AM EDT documented as of this encounter Miscellaneous Notes * Telephone Encounter - Berenice Yoder NP - 09/28/2023 9:17 PM EST Approving, but needs appt for additional refills. documented in this encounter Plan of Treatment Not on file documented as of this encounter Visit Diagnoses Diagnosis Gastroesophageal reflux disease without esophagitis Esophageal reflux documented in this encounter Care Teams Lead Fire Protection Engineer Relationship Specialty Start Date End Date Berenice Yoder NP [address] [place] [address] PCP - General Family Medicine 06/13/23 documented as of this encounter
--- OUTSIDE RECORDS SUMMARY | 2024-09-25 12:38 | XMS_ITS | Encounter Summary ---
Author Organization [employer] Address [address] [facility] 7t [place] [address] Care Team Providers Care Deportation Examiner Name Role Phone Berenice Yoder NP Primary Care Provider [phone] Reason for Visit * Reason Onset Date Comments Appointment Request 08/29/2024 Encounter Details Date Type Department Care Team ([facility] Contact Info) Description 08/29/2024 Telephone [facility] MEDICINE [address] [place], [place] [phone] Berenice Yoder NP [address] [place], [place] [phone] Appointment Request Social History Tobacco Use Types Packs/Day Years [...] encounter Miscellaneous Notes * Telephone Encounter - Willis Villalobos - 08/29/2024 12:19 PM EST Tc from pt stating would like a Letter from Doctor stating that pt is able to work. PT talked to medical record and they stated that he needs a Apt. Clay Washer advised pt that it would be towards the end of September and pt would like it as soon as possible. If any questions contact pt at [phone] documented in this encounter Plan of Treatment Not on file documented as of this encounter Visit Diagnoses Not on filedocumented in this encounter Additional Health Concerns Assessment Noted Time PHQ-9 Depression Total Score: 0 11/01/19 24 3:16 PM EST documented as of this encounter Care Teams Deportation Examiner Relationship Specialty Start Date End Date Berenice Yoder NP [address] [place] [phone] PCP - General Family Medicine 06/13/23 documented as of this encounter
--- OUTSIDE RECORDS SUMMARY | 2024-09-25 12:38 | XMS_ITS | Encounter Summary ---
Author Organization [employer] [facility] Address [address] [place] [address] 7t [place] [address] Care Team Providers Care Cut Off Machine Unloader Name Role Phone Berenice Yoder NP Primary Care Provider [phone] Reason for Visit * Reason Comments Med Refill Encounter Details Date Type Department Care Team ([facility] st Contact Info) Description 06/29/2023 Refill [facility] MEDICINE [address] [place] [address] Shell Pipre FNP [address] [place] [address] [place] [address] Pain Social History Tobacco Use Types Packs/Day Years [...] as of this encounter Visit Diagnoses Diagnosis Pain Generalized pain documented in this encounter Care Teams Cut Off Machine Unloader Relationship Specialty Start Date End Date Berenice Yoder NP [address] [place] [address] PCP - General Family Medicine 06/13/23 documented as of this encounter
--- OUTSIDE RECORDS SUMMARY | 2024-09-25 12:38 | XMS_ITS | Encounter Summary ---
Author Organization [employer] [facility] Address [address] [place] [address] 7t [place] [address] Care Team Providers Care Qc Analyst Name Role Phone Shell Piper Primary Care Provider [phone] Berenice Yoder NP Primary Care Provider [phone] Encounter Details Date Type Department Care Team (Latest Contact Info) Description 06/08/[address] [facility] Dental, Provider, DDS Social History Tobacco Use Types Packs/Day Years Used Date Smoking Tobacco: Never Assessed Sex and Gender Information Value Date Recorded Sex Assigned at Male 07/04/2022 10:21 AM EDT Legal Sex Male 10:21 AM EDT Gender Identity Male 07/04/2022 10:21 AM EDT Sexual Orientation Straight 07/04/2022 10 :21 AM EDT documented as of this encounter Plan of Treatment Not on file documented as of this encounter Visit Diagnoses Not on filedocumented in this encounter Care Teams Qc Analyst Relationship Specialty Start Date End Date Shell Piper FNP PCP - General Family Medicine 06/28/21 06/12/23 Berenice Yoder NP [address] [place] [phone] PCP - General Family Medicine 06/13/23 documented as of this encounter
--- OUTSIDE RECORDS SUMMARY | 2024-09-25 12:38 | XMS_ITS | Encounter Summary ---
Author Organization [employer] [facility] Address [address] [place] [address] 7t [place] [address] Care Team Providers Care Geographic Analyst Name Role Phone Berenice Yoder NP Primary Care Provider [phone] Reason for Visit * Reason Onset Date Comments Appointment Request 09/08/2023 Encounter Details Date Type Department Care Team ([facility] Contact Info) Description 09/08/2023 Telephone [facility] MEDICINE [address] [place] [address] Berenice Yoder NP [address] [place] [address] Appointment Request Social History Tobacco Use Types [...] encounter Miscellaneous Notes * Telephone Encounter - Tray Oneal - 09/08/2023 9:44 AM EST Tc from patient requesting a appt with new Provider needs a TP appt from Bre Piper documented in this encounter Plan of Treatment Not on file documented as of this encounter Visit Diagnoses Not on filedocumented in this encounter Care Teams Geographic Analyst Relationship Specialty Start Date End Date Berenice Yoder NP [address] [place] [address] PCP - General Family Medicine 06/13/23 documented as of this encounter
--- OUTSIDE RECORDS SUMMARY | 2024-09-25 12:38 | XMS_ITS | Encounter Summary ---
Author Organization [employer] Address [address] [facility] 7t [place] [address] Care Team Providers Care Team Assembly Line Machine Operator Name Role Phone Berenice Yoder NP Primary Care Provider [phone] Reason for Visit * Reason Comments Med Refill Encounter Details Date Type Department Care Team ([facility] st Contact Info) Description 08/22/2023 Refill [facility] MEDICINE [address] [place] [address] Name, MD Dennis [address] [place] [address] Pain Social History Tobacco Use Types Packs/Day [...] Telephone Encounter - Berenice Yoder NP - 08/24/2023 2:25 PM EST Approving, but needs appt for additional refills. documented in this encounter Plan of Treatment Not on file documented as of this encounter Visit Diagnoses Diagnosis Pain Generalized pain documented in this encounter Care Teams Team Assembly Line Machine Operator Relationship Specialty Start Date End Date Berenice Yoder NP [address] [place] [address] PCP - General Family Medicine 06/13/23 documented as of this encounter
--- OUTSIDE RECORDS SUMMARY | 2024-09-25 12:38 | XMS_ITS | Encounter Summary ---
Author Organization [employer] Address [address] [place] [address] Care Team Providers Care Entry Level Recruiter Name Role Phone Berenice Yoder NP Primary Care Provider [phone] Encounter Details Date Type Department Care Team ([facility] st Contact Info) Description 09/18/2024 10:30 AM EST Office Visit [facility] MEDICINE [address] [place] [address] Berenice Yoder NP [address] [place] [address] Encounter for immunization (Primary Dx); Abnormal liver enzymes; Screening-pulmonary TB Social History Tobacco Use Types Packs/Day Years [...] Sign Reading Time Taken Comments Blood Pressure 129/77 09/18/2024 10:37 AM EST Pulse 66 09/18/2024 10:37 AM EST Temperature 36.1 ??C (96.9 ??F) 09/18/2024 10:[address] Respiratory Rate 21 09/18/2024 10:37 AM EST Oxygen Saturation 95% 09/18/2024 10:37 AM EST Inhaled Oxygen Concentration - - Weight 124 kg (273 lb) 09/18/2024 10:37 AM EST Height 170.2 cm (5' 7 ) 09/18/2024 10:37 AM EST Body Mass Index 42.76 09/18/2024 10:37 AM EST documented in this encounter Plan of Treatment Not on file documented as of this encounter Procedures Procedure Name Priority Date/Time Associated Diagnosis Comments T-SPOT(R).TB Routine 09/18/2024 11:47 AM EST Screening-pulmonary TB HEPATIC FUNCTION PANEL Routine 09/18/2024 11:47 AM EST Abnormal liver enzymes documented in this encounter Results * T-SPOT??.TB (09/18/2024 11:47 AM EST) T Spot TB Negative Negative [facility] Comment:A negative test resu lt does [...] as aquantitative test. TS PANEL A 0 [facility] TS PANEL B 0 [facility] Negative Control Passed [facility] Positive Control Passed [facility] Comment:For additional infor carlos, please refer tohttp://education.Ge.tt/faq/[email or web address](This link is being provided for informational/educational purposes only.)THIS TEST WAS PERFORMED AT:[id number] [place] [id number] JANSEN MD,PHD 09/18/2024 11:4 7 AM EST 09/18/2024 1:02 PM EST us Berenice Yoder NP LAB BLOOD ORDERABLES Final Resu lt [facility] [address] [place] [phone] * (ABNORMAL) Hepatic Function Panel (09/18/2024 11:47 AM EST) Bilirubin, Total 1.9(H) 0.0 - 1.0 mg/dL [facility] Bilirubin, Direct 1.2(H) 0.0 - 0.5 mg/dL [facility] Aspartate Amino Transferase 150(H) 5 - 37 U/L [facility] Alanine Aminotransferase 125(H) 0 - 40 U/L [facility] Total Protein 8.6(H) 6.5 - 8.0 g/dL [facility] Albumin Level 3.9 3.5 - 5.0 g/dL [facility] Alkaline Phosphatase 216(H) 39 - 117 U/L [facility] Blood Venous blood specimen / Unknown 09/18/2024 11:47 AM EST 09/18/2024 1:02 PM EST Berenice Yoder NP LAB BLOOD ORDERABLES Final Resu lt [facility] [address] [place] [address] [phone] documented in this encounter Visit Diagnoses Diagnosis Encounter for immunization- Primary Abnormal liver enzymes Screening-pulmonary TB Screening examination for pulmonary tuberculosis documented in this encounter Additional Health Concerns Assessment Noted Time PHQ-9 Depression Total Score: 0 11/01/19 24 3:16 PM EST documented as of this encounter Care Teams Entry Level Recruiter Relationship Specialty Start Date End Date Berenice Yoder NP [address] [place] [address] PCP - General Family Medicine 06/13/23 documented as of this encounter
[2024-09-26 07:56] LABS: ~Hepatitis C Antibody Reactive (Nonreactive)
[2024-09-26 08:04] LABS: Hepatitis A Antibody IgG REACTIVE (Nonreactive); ~Hepatitis A Antibody IgG 4.42 S/CO (0.00-0.99)
[2024-09-30 14:19] LABS: HCV Log PCR <1.18 NOT DETECTED Log IU/mL (NOT DETECTED); HepC Viral Load <15 NOT DETECTED IU/mL (NOT DETECTED)
== END 2024-09-25 11:05 | disposition home or self-care (01) ==
LOC: HO.HHCL 11:04
PROVIDERS: Visit Provider Nurse Practitioner
DX: R74.8 Abnormal levels of other serum enzymes (principal); E66.3 Overweight
CPT/HCPCS: 36415; 80048; 80061; 86708; 86803; 87522

== ENCOUNTER 2025-05-15 15:19 | Inpatient (IN) | payer MEDICAID, SELFPAY ==
--- NOTE | 2025-05-15 | ECG_ITS ---
Test Reason : CHECK QTc Blood Pressure : */* mmHG Vent. Rate : 79 BPM Atrial Rate : 79 BPM P-R Int : 132 ms QRS Dur : 104 ms QT Int : 392 ms P-R-T Axes : 26 11 10 degrees QTcB Int : 449 ms Normal sinus rhythm Low voltage QRS Incomplete right bundle branch block Nonspecific T wave abnormality Abnormal ECG When compared with ECG of 05-Oct-2016 19:12, No significant change was found Referred By: She Herrera Electronically Signed By: KIARA WILEY MD
--- NOTE | ~2025-05-15 | CT_ITS ---
CLINICAL HISTORY: jaundice elevated bili CT abdomen and pelvis with contrast Comparison: CT/[place]/SR - CT ABDOMEN WITHOUT THEN WITH IV CONTRAST - 01/01/24 13:38 EDT Findings: Diffuse esophageal mural thickening, nonspecific. Posterior paraesophageal node measuring 1 cm may be reactive however is nonspecific findings similar to prior. Atelectasis. Marked hepatomegaly with steatosis. Marked splenomegaly. Atrophic pancreas more so proximally. Punctate less than 2 mm nonobstructive calculus right lower pole kidney. Left upper pole hypodense 1.3 cm renal cyst. No hydronephrosis. No evidence of appendicitis mildly distended gallbladder. No radiopaque gallstones. No bowel obstruction, pneumoperitoneum, or pneumatosis. Fat containing inguinal hernias. No acute fracture. IMPRESSION: 1. Punctate less than 2 mm nonobstructive calculus right lower pole kidney. 2. Redemonstrated marked hepatosplenomegaly with hepatic steatosis. 3. Additional findings described. This document has been electronically signed by: Sundar Jimenes MD on 05/15/2025 20:33:55
--- NOTE | ~2025-05-15 | US_ITS ---
CLINICAL HISTORY: elevated bili --- Additional Notes or Special Instructions: look at GB, liver, pancreas, ducts US abdomen limited Comparison: CT/[place]/SR - CT ABDOMEN WITHOUT THEN WITH IV CONTRAST - 01/01/24 13:38 EDT Findings: The visualized pancreas is normal. Hepatomegaly measuring 24.2 cm with steatosis. There is no intrahepatic bile duct dilatation. The common duct is 4 mm in diameter. The gallbladder is normal. There is no sonographic Pierce sign. The main portal vein is antegrade. No ascites. IMPRESSION: No evidence for cholecystitis. Hepatomegaly with steatosis. This document has been electronically signed by: Sundar Jimenes MD on 05/15/2025 18:09:40
[2025-05-15 15:33] VITALS: BP 150/79; PULSE 84; RESP 16; TEMP 36.8; O2SAT 95; BMI 35.9
--- NOTE | 2025-05-15 15:35 | ED.GENADULT ---
HPI - General Adult General Chief complaint: General Medical Stated complaint: yellow in eyes Time Seen by Provider: 05/15/25 19:22 Source: patient Mode of arrival: ambulatory Limitations: no limitations History of Present Illness ED Provider: Dr. Herrera [facility] narrative: 39-year-old male history of hepatitis-C, former IV drug use, opioid dependency on methadone presents to ER today for evaluation of jaundice for past 2 weeks. Patient does endorse some nausea and vomiting. Patient states he does not have an appetite. Denies any chronic alcohol use. He denies any fever. He is not complaining of any abdominal pain at this time. He noticed that his urine has been darker than usual. His skin has been yellow in this past 2 weeks. He had a episode in the past with spontaneous resolve on its own. Related Data Home Medications ?Medication ?Instructions ?Recorded ?Confirmed methadone 10 mg/mL oral concentrate See Rx Instructions PO Q4H 01/26/21 03/23/21 omeprazole 20 mg capsule,delayed 20 mg PO DAILY 08/03/23 release Allergies Allergy/AdvReac Type Severity Reaction Status Date / Time amoxicillin (AMOXICILLIN) Allergy Unknown RASH Verified 05/15/25 15:34 From FLEXERIL Allergy Unknown STOMACH Uncoded 01/31/24 15:21 UPSET Review of Systems Review of Systems: Pertinent review of systems as mentioned in HPI. All other system otherwise negative. [facility] Past Medical History [facility] Narrative: Medical history as mentioned in [facility] Surgical History Hx of cystoscopy Social History Social History Smoked in Last 30 Days: No Any prior treatment program specific to substance use: Yes (pt currently taking methadone) Advance Directives: No Advance Directives Information Provided: No Physical Exam ED Exam Exam: General: Appears jaundiced on exam Head: Normacephalic, atraumatic ENT: oral mucosa moist, neck supple, no tracheal deviation, scleral icterus appreciated on exam Cardiovascular: regular rate, regular rhythm, no murmurs, rubbing, gallops Respiratory: CTAB, no wheeze, rales, rhonchi Gastrointestinal: Soft, non distended, non tender, non guarding Extremities: No limb pain or swelling, no calf tenderness Neurological: Awake and alert, no facial droop noted Skin: Warm and dry Psychiatric: Appropriate mood and thoughts Vital Signs: Vital Signs - 24 hr 05/15/25 15:33 05/15/25 20:00 05/15/25 22:00 Temperature 98.2 F 98.7 F 98.7 F Pulse Rate 84 76 70 Respiratory Rate 16 17 15 Blood Pressure 150/79 H 140/86 H 149/84 H Pulse Oximetry 95 96 99 Oxygen Delivery Method Room Air Room Air Room Air BMI result Body Mass Index 35.9 Course Course Course Narrative: This is a Rapid Medical Examination (RME) performed by Padmini Milan PA-C in triage. Full HPI, ROS, assessment and treatment plan per primary provider in the Main ED. Hx: 39 yo M here for eval of yellow color to eyes x2 weeks. hx of similar 8-9 mo ago - told to drink water and symptoms resolved. denies known hx of liver issues. denies etoh consumption. admits to increased fatigue and urinary freq. PE/vitals: scleral icterus Plan: labs, UA Medications Administered Discontinued Medications Generic Name Dose Route Start Last Admin Trade Name Freq PRN Reason Stop Dose Admin Sodium Chloride 1,000 mls @ 999 mls/hr 05/15/25 19:30 05/15/25 22:36 Ns IV 05/15/25 20:30 Infused .Q1H1M LIU Infusion Iohexol 100 ml 05/15/25 19:43 05/15/25 19:43 Iohexol 350 Mg/Ml 100 Ml Infus..Btl IV 05/15/25 19:44 100 ml ONCE ONE Administration Ondansetron HCl 4 mg 05/15/25 22:37 05/15/25 23:14 Ondansetron Hcl 4 Mg/2 Ml Vial IVPUSH 05/15/25 22:38 4 mg ONCE ONE Administration Medical Decision Making Medical Decision Making [facility] Narrative: This is a 39-year-old male presented hospital today for evaluation of new onset of jaundice. Patient denies any abdominal pain. Patient has abdominal lab work performed prior to my evaluation. He does have some leukopenia, patient's chemistry significant for elevated bilirubin at 11.2, elevated direct bilirubin 8.1. Mild transaminitis AST 147 ALT 94. Alk-phos is elevated at 297. Lipase along although is normal. We will obtain a CT abdomen and pelvis with IV contrast. We will also obtain right upper quadrant ultrasound. CT abdomen and pelvis did not show any signs of acute surgical abdomen. He does have some no splenomegaly with hepatomegaly. Patient's right upper quadrant ultrasound shows hepatomegaly. I did discuss the case with GI doctor Dr. Coombs. Recommends following up on INR, ultrasound of the abdomen with duplex, following up on serology of hepatitis panel, screening patient is for sepsis. She recommends admission to the hospital for further investigation of his elevated bilirubin level. Patient will be admitted to the hospital. Differential Diagnosis Differential Diagnoses: The differential diagnosis associated with the presentation includes Pancreatic mass, Cholecystitis, Cholangitis, Hyperbilirubinemia, alcoholic hepatitis, hepatitis Consult Healthcare Provider Management of the patient was discussed with: Hospitalist and Supervisor [employer] (GI doctor Dr. Coombs) Lab Data MDM Lab Attestation statement: I reviewed the patient's lab results. 05/15/25 16:07 05/15/25 16:07 Labs: Lab Results 05/15/25 05/15/25 05/15/25 Range/Units 16:07 19:15 19:24 WBC 3.1 L (4.8-10.8) X10*3/uL RBC 4.93 (4.60-5.80) X10*6/uL Hgb 13.2 L (14.0-18.0) g/dl Hct 39.2 L (42.0-52.0) % MCV 79.5 L (80.0-98.0) fL MCH 26.8 L (27.0-33.0) pg MCHC 33.7 (31.0-36.0) g/dl RDW 14.7 (11.0-16.0) % Plt Count 211 (160-400) X10*3/uL MPV 8.8 L (9.4-12.4) fL Immature Gran % (Auto) 0.7 H (0.0-0.4) % Neut % (Auto) 45.9 (45-73) % Lymph % (Auto) 41.3 H (20-40) % Hand % (Auto) 10.8 (2-11) % Eos % (Auto) 1.0 (0-4) % Baso % (Auto) 0.3 (0-2) % Lymph # (Auto) 1.3 (1.2-4.9) X10*3/uL Hand # (Auto) 0.3 (0.1-1.2) X10*3/uL Eos # (Auto) 0.0 (0.0-0.4) X10*3/uL Baso # (Auto) 0.0 (0.0-0.2) X10*3/uL Abs Immat Gran (auto) 0.02 (0.00-0.03) X10*3/uL Absolute Neuts (auto) 1.4 L (2.0-8.3) x10*3/uL Absolute Nucleated RBC 0.000 (0.0-0.012) X10*3/uL Nucleated RBC % (auto) 0.0 (0.0-0.2) /100WBC PT (10.9-12.4) SEC INR (0.9-1.1) Sodium 137 (135-145) mmol/L Potassium 4.2 (3.3-5.1) mmol/L Chloride 101 (96-108) mmol/L Carbon Dioxide 27 (22-29) mmol/L Anion Gap 13 (12-20) BUN 11 (9-16) mg/dL Creatinine 0.82 (0.5-1.4) mg/dL Estim Creat Clear Calc 149.5 Estimated GFR > 60 Random Glucose 91 (60-115) mg/dL Lactic Acid (0.5-2.0) mmol/L Calcium 9.3 (8.4-10.2) mg/dL Magnesium 2.1 (1.6-2.6) mg/dL Total Bilirubin 11.2 H (0.0-1.0) mg/dL Direct Bilirubin 8.1 H (0.0-0.5) mg/dL AST 147 H (5-37) U/L ALT 94 H (0-40) U/L Alkaline Phosphatase 297 H (39-117) U/L Ammonia 46 (13-55) umol/L Total Creatine Kinase 29 L (38-174) U/L Total Protein 8.3 H (6.5-8.0) g/dL Albumin 3.6 (3.5-5.0) g/dL Lipase 27 (8-78) U/L Urine Color Urine Appearance Urine pH (5.0-9.0) Ur Specific [place] (1.005-1.025) Urine Protein (Neg-Trace) mg/dL Urine Glucose (UA) (Negative) mg/dL Urine Ketones (Negative) mg/dL Urine Blood (Negative) Urine Nitrite (Negative) Ur Leukocyte Esterase (Negative) Urine RBC (0-2) /HPF Urine WBC (0-5) /HPF Ur Squamous Epith Cells (0-2) /HPF Urine Bacteria (None Seen) Hyaline Casts (0-2) /LPF Acetaminophen < 3 (<30) mcg/mL Ethyl Alcohol mg/dL Monoscreen Negative (Negative) 05/15/25 05/15/25 Range/Units 20:16 22:08 WBC (4.8-10.8) X10*3/uL RBC (4.60-5.80) X10*6/uL Hgb (14.0-18.0) g/dl Hct (42.0-52.0) % MCV (80.0-98.0) fL MCH (27.0-33.0) pg MCHC (31.0-36.0) g/dl RDW (11.0-16.0) % Plt Count (160-400) X10*3/uL MPV (9.4-12.4) fL Immature Gran % (Auto) (0.0-0.4) % Neut % (Auto) (45-73) % Lymph % (Auto) (20-40) % Hand % (Auto) (2-11) % Eos % (Auto) (0-4) % Baso % (Auto) (0-2) % Lymph # (Auto) (1.2-4.9) X10*3/uL Hand # (Auto) (0.1-1.2) X10*3/uL Eos # (Auto) (0.0-0.4) X10*3/uL Baso # (Auto) (0.0-0.2) X10*3/uL Abs Immat Gran (auto) (0.00-0.03) X10*3/uL Absolute Neuts (auto) (2.0-8.3) x10*3/uL Absolute Nucleated RBC (0.0-0.012) X10*3/uL Nucleated RBC % (auto) (0.0-0.2) /100WBC PT 11.0 (10.9-12.4) SEC INR 1.0 (0.9-1.1) Sodium (135-145) mmol/L Potassium (3.3-5.1) mmol/L Chloride (96-108) mmol/L Carbon Dioxide (22-29) mmol/L Anion Gap (12-20) BUN (9-16) mg/dL Creatinine (0.5-1.4) mg/dL Estim Creat Clear Calc Estimated GFR Random Glucose (60-115) mg/dL Lactic Acid 0.9 (0.5-2.0) mmol/L Calcium (8.4-10.2) mg/dL Magnesium (1.6-2.6) mg/dL Total Bilirubin (0.0-1.0) mg/dL Direct Bilirubin (0.0-0.5) mg/dL AST (5-37) U/L ALT (0-40) U/L Alkaline Phosphatase (39-117) U/L Ammonia (13-55) umol/L Total Creatine Kinase (38-174) U/L Total Protein (6.5-8.0) g/dL Albumin (3.5-5.0) g/dL Lipase (8-78) U/L Urine Color Dark Yellow Urine Appearance Clear Urine pH 6.5 (5.0-9.0) Ur Specific [place] >= 1.030 H (1.005-1.025) Urine Protein 30 (1+) H (Neg-Trace) mg/dL Urine Glucose (UA) Negative (Negative) mg/dL Urine Ketones Negative (Negative) mg/dL Urine Blood Negative (Negative) Urine Nitrite Negative (Negative) Ur Leukocyte Esterase Negative (Negative) Urine RBC 0-2 (0-2) /HPF Urine WBC 0-5 (0-5) /HPF Ur Squamous Epith Cells 0-2 (0-2) /HPF Urine Bacteria None Seen (None Seen) Hyaline Casts 0-2 (0-2) /LPF Acetaminophen (<30) mcg/mL Ethyl Alcohol < 10 mg/dL Monoscreen (Negative) Independent Interpretation I performed an independent interpretation of an: Ultrasound and CT Scan Radiology Impression Discussion of test interpretation with radiology: I have reviewed the radiologist's reading. External Record Review External record reviewed: Prior outpatient labs Critical Care Time Critical Care Time Critical Care Time: Yes Total Critical Care Time: 40 Attestation: Time is exclusive of separately billable procedures. Time includes: direct patient care, patient reassessment, coordination of patient care, interpretation of data (laboratory data, pulse oximetry, arterial blood gases and chest xrays), review of patient's medical records, medical consultation and documentation of patient care. Procedures excluded from critical care time: central intravenous line placement and electrocardiography. Discharge Plan Discharge Clinical Impression: Hyperbilirubinemia, Jaundice Patient Disposition: Admitted As Inpatient Interventions: Admission Worksheet (ED) Last Done: 05/15/25 19:39
[2025-05-15 16:12] LABS: MANUAL DIFF FLAG NO
[2025-05-15 16:14] LABS: Hematocrit 39.2 % (42.0-52.0); Hemoglobin 13.2 g/dl (14.0-18.0); Imm Gran Abs Auto 0.02 X10*3/uL (0.00-0.03); Imm Gran Pct Auto 0.7 % (0.0-0.4); Lymphocytes Absolute Auto 1.3 X10*3/uL (1.2-4.9); Mean Corpuscular HGB Conc 33.7 g/dl (31.0-36.0); Mean Corpuscular Hemoglobin 26.8 pg (27.0-33.0); Mean Corpuscular Volume 79.5 fL (80.0-98.0); NRBC Abs Auto 0.000 X10*3/uL (0.0-0.012); NRBC Pct Auto 0.0 /100WBC (0.0-0.2); Platelet Count 211 X10*3/uL (160-400); Red Blood Count 4.93 X10*6/uL (4.60-5.80); White Blood Count 3.1 X10*3/uL (4.8-10.8)
[2025-05-15 16:34] LABS: Acetaminophen LAB < 3 mcg/mL (<30)
[2025-05-15 16:42] LABS: Alanine Aminotransferase 94 U/L (0-40); Albumin Level 3.6 g/dL (3.5-5.0); Alkaline Phosphatase 297 U/L (39-117); Anion Gap 13 (12-20); Aspartate Amino Transferase 147 U/L (5-37); Blood Urea Nitrogen 11 mg/dL (9-16); Calcium 9.3 mg/dL (8.4-10.2); Carbon Dioxide 27 mmol/L (22-29); Chloride 101 mmol/L (96-108); Creatinine Clr Calc Pharmacy 149.5; Estimated Glomerular Filt Rate > 60; Lipase 27 U/L (8-78); Magnesium 2.1 mg/dL (1.6-2.6); Potassium 4.2 mmol/L (3.3-5.1); Sodium 137 mmol/L (135-145); Total Protein 8.3 g/dL (6.5-8.0)
--- OUTSIDE RECORDS SUMMARY | 2025-05-15 19:03 | XMS_ITS | Encounter Summary ---
Author Organization [employer] Address [address] [facility] [address] [facility] [address] [place] [address] Care Team Providers Care Hot Air Furnace Installer And Repairer Name Role Phone Berenice Yoder NP Primary Care Provider [phone] Reason for Visit * Reason Comments Med Refill Encounter Details Date Type Department Care Team (Late st Contact Info) Description 09/27/2023 Refill [facility] [address] [place] [id number] Name, MD Dennis [address] [place] [phone] Gastroesophageal reflux disease without esophagitis Social History [...] documented in this encounter Plan of Treatment Upcoming Encounters Date Type Department Care Team (Late st Contact Info) Description 06/25/2025 2:15 PM EDT Office Visit [facility] [address] [place] [address] Carmencita Puga [address] [place], [place] [id number] documented as of this encounter Visit Diagnoses Diagnosis Gastroesophageal reflux disease without esophagitis Esophageal reflux documented in this encounter Care Teams Hot Air Furnace Installer And Repairer Relationship Specialty Start Date End Date Berenice Yoder NP [address] [place] [address] PCP - General Family Medicine 06/13/23 documented as of this encounter
--- OUTSIDE RECORDS SUMMARY | 2025-05-15 19:03 | XMS_ITS | Encounter Summary ---
Author Organization [employer] Address [address] [facility] [address] [place] [address] Care Team Providers Care Tours Captain Name Role Phone Berenice Yoder NP Primary Care Provider Reason for Visit * Reason Onset Date Comments Appointment Request 08/29/2024 Encounter Details Date Type Department Care Team ([facility] Contact Info) Description 08/29/2024 Telephone [facility] [address] [place] [address] Berenice Yoder NP [address] [place] [address] Appointment Request Social History Tobacco Use Types [...] they stated that he needs a Apt. Physician Office Specialist advised pt that it would be towards the end of September and pt would like it as soon as possible. If any questions contact pt at [phone] documented in this encounter Plan of Treatment Upcoming Encounters Date Type Department Care Team (Late st Contact Info) Description 06/25/2025 2:15 PM EDT Office Visit [facility] [address] [place] [address] Carmencita Puga [address] [place] [address] documented as of this encounter Visit Diagnoses Not on filedocumented in this encounter Additional Health Concerns Assessment Noted Time PHQ-9 Depression Total Score: 0 11/01/19 24 3:16 PM EST documented as of this encounter Care Teams Tours Captain Relationship Specialty Start Date End Date Berenice Yoder NP [address] [place] [address] PCP - General Family Medicine 06/13/23 documented as of this encounter
--- OUTSIDE RECORDS SUMMARY | 2025-05-15 19:03 | XMS_ITS | Encounter Summary ---
Author Organization [employer] Address [address] [place] [address] Care Team Providers Care Land Management Supervisor Name Role Phone Yeisonaggie Berenice DAVI Primary Care Provider [phone] Encounter Details Date Type Department Care Team ([facility] st Contact Info) Description 05/15/2025 Orders Only GENERIC EXTERNAL DATA DEPARTMENT Provider, Generic External Data Social History Tobacco Use Types Packs/Day Years [...] as of this encounter Plan of Treatment Upcoming Encounters Date Type Department Care Team (Late st Contact Info) Description 06/25/2025 2:15 PM EDT Office Visit [facility] [address] [place] [address] Vivine, Carmencita [address] [place] [address] documented as of this encounter Procedures Procedure Name Priority Date/Time Associated Diagnosis Comments US ABDOMEN LIMITED Routine 05/15/2025 6: 09 PM EDT CBC WITH AUTO DIFFERENTIAL Routine 05/15/2025 4:07 PM EDT MAGNESIUM Routine 05/15/2025 4:07 PM EDT LIPASE Routine 05/15/2025 4:07 PM EDT CREATINE KINASE, TOTAL Routine 5 4:07 PM EDT ACETAMINOPHEN LEVEL Routine 05/15/2025 4 :07 PM EDT HEPATIC FUNCTION PANEL Routine 5 4:07 PM EDT BASIC METABOLIC PANEL Routine 05/15/2025 4:07 PM EDT documented in this encounter Results * US Abdomen Limited (05/15/2025 6:09 PM EDT) Anatomical Region Laterality Modality Abdomen Ultrasound 05/15/2025 6:09 PM EDT Narrative 05/15/2025 6:10 PM EDT [address] [address] Ultrasound Report Signed Patient: Kong Diggs Jr MR#: [id number] : 1985 Acct:[id number] Age/Sex: 39 / M ADM Date: 05/15/25 Loc: HO.ED Attending Dr: Ordering Physician: Sofia Milan Date of Service: 05/15/25 Procedure(s): US abdomen limited Accession Number(s): [id number] cc: [facility]; Sofia Milan Reason for Exam: elevated bili CLINICAL HISTORY: elevated bili --- Additional Notes or Special Instructions: look at GB, liver, pancreas, ducts US abdomen limited Comparison: CT/CT/SR - CT ABDOMEN WITHOUT THEN WITH IV CONTRAST - 01/01/24 13:38 EDT Findings: The visualized pancreas is normal. Hepatomegaly measuring 24.2 cm with steatosis. There is no intrahepatic bile duct dilatation. The common duct is 4 mm in diameter. The gallbladder is normal. There is no sonographic Pierce sign. The main portal vein is antegrade. No ascites. IMPRESSION: No evidence for cholecystitis. Hepatomegaly with steatosis. This document has been electronically signed by: Sundar Jimenes MD on 05/15/2025 18:09:40 Dictated By: Sundar Jimenes MD Signed By: <Electronically signed by Sundar Jimenes MD in OV> 05/15/25 1810 DD/ 180 TD/TT: 05/15/25 180 Metal Fabricator Helper: Procedure Note Donotuseinterpreter, Image - 05/15/[address] [address] Ultrasound Report Signed Patient: Kong Diggs JrMR#: [id number] : 1985Acct:[id number] Age/Sex: 39 / MADM Date: 05/15/25 Loc: HO.ED Attending Dr: Ordering Physician: Sofia Milan Date of Service: 05/15/25 Procedure(s): US abdomen limited Accession Number(s): [id number] cc: [facility]; Sofia Milan Reason for Exam: elevated bili CLINICAL HISTORY: elevated bili --- Additional Notes or SpecialInstructions: look at GB, liver, pancreas, ducts US abdomen limited Comparison: CT/CT/SR - CT ABDOMEN WITHOUT THEN WITH IV CONTRAST - 01/01/24 13:38 EDT Findings: The visualized pancreas is normal. Hepatomegaly measuring 24.2 cm with steatosis. There is no intrahepatic bile duct dilatation. The common duct is 4 mm in diameter. The gallbladder is normal. There is no sonographic Pierce sign. The main portal vein is antegrade. No ascites. IMPRESSION: No evidence for cholecystitis. Hepatomegaly with steatosis. This document has been electronically signed by: Sundar Jimenes MD on 05/15/2025 18:09:40 Dictated By: Sundar Jimenes MD Signed By: <Electronically signed by Sundar Jimenes MD in OV> 05/15/25 181 DD/ 180 TD/TT: 05/15/251808 Metal Fabricator Helper: [facility] External Provider IMG US PROCEDURES Final Result * Lipase (05/15/2025 4:07 PM EDT) Lipase 27 8 - 78 U/L [facility] 05/15/2025 4:07 PM EDT 05/15/2025 4:10 PM EDT Generic External Data Provider LAB BLOOD ORDERAB LES Final Result [facility] [address] [place] [phone] * (ABNORMAL) Creatine Kinase, Total (05/15/2025 4:07 PM EDT) Creatine Kinase Total 29(L) 38 - 174 U/L [facility] 05/15/2025 4:07 PM EDT 05/15/2025 4:10 PM EDT us Generic External Data Provider LAB BLOOD ORDERAB LES Final Result Performing Organization Address City/[facility]/ZIP Co de Phone Number [facility] [address] [place] [phone] * Magnesium (05/15/2025 4:07 PM EDT) Magnesium 2.1 1.6 - 2.6 mg/dL [facility] 05/15/2025 4:07 PM EDT 05/15/2025 4:10 PM EDT us Generic External Data Provider LAB BLOOD ORDERAB LES Final Result Performing Organization Address City/[facility]/ZIP Co de Phone Number [facility] [address] [place] [phone] * Basic Metabolic Panel (05/15/2025 4:07 PM EDT) Sodium 137 135 - 145 mmol/L [facility] Potassium 4.2 3.3 - 5.1 mmol/L [facility] Chloride 101 96 - 108 mmol/L [facility] Carbon Dioxide 27 22 - 29 mmol/L [facility] Anion Gap 13 12 - 20 [facility] Urea Nitrogen (BUN) 11 9 - 16 mg/dL [facility] Creatinine, Serum 0.82 0.5 - 1.4 mg/dL [facility] Comment:Mild Icterus.Interpr et result with caution. Creatinine Clr Calc Pharmacy 149.5 [facility] Comment:eGFR (calculated fro m the MDRD study equation) and eCrCl(calculated from the Cockcroft-Gault equation) are based ondifferent parameters and may not yield comparable results.If eCrCl result is absurd, please check patient'sheight/weight. Estimated Glomerular Filt Rate >60 [facility] Comment:Chronic Kidney Disea se: Estimated GFR < 60 mL/min/[id number] Kidney Disease: Estimated GFR < 15 mL/min/1.73m2 Glucose 91 60 - 115 mg/dL [facility] Calcium 9.3 8.4 - 10.2 mg/dL [facility] 05/15/2025 4:07 PM EDT 05/15/2025 4:10 PM EDT Generic External Data Provider LAB BLOOD ORDERAB LES Final Result Performing Organization Address [facility] Co de Phone Number [facility] [address] [place] [phone] * (ABNORMAL) Hepatic Function Panel (05/15/2025 4:07 PM EDT) Bilirubin, Total 11.2(H) 0.0 - 1.0 mg/dL [facility] Comment:Mild Icterus. Bilirubin, Direct 8.1(H) 0.0 - 0.5 mg/dL [facility] Comment:Mild Icterus. Aspartate Amino Transferase 147(H) 5 - 37 U/L [facility] Alanine Aminotransferase 94(H) 0 - 40 U/L [facility] Total Protein 8.3(H) 6.5 - 8.0 g/dL [facility] Albumin Level 3.6 3.5 - 5.0 g/dL [facility] Alkaline Phosphatase 297(H) 39 - 117 U/L [facility] 05/15/2025 4:07 PM EDT 05/15/2025 4:10 PM EDT us Generic External Data Provider LAB BLOOD ORDERAB LES Final Result Performing Organization Address [facility] Co de Phone Number [facility] [address] [place] [phone] * Acetaminophen level (05/15/2025 4:07 PM EDT) Acetaminophen LAB <3 <30 mcg/mL [facility] 05/15/2025 4:07 PM EDT 05/15/2025 4:10 PM EDT us Generic External Data Provider LAB BLOOD ORDERAB LES Final Result [facility] [address] [place], [place] [phone] * (ABNORMAL) CBC auto differential (05/15/2025 4:07 PM EDT) White Blood Count 3.1(L) 4.8 - 10.8 X10*3/uL [facility] Red Blood Count 4.93 4.60 - 5.80 X10*6/uL [facility] Hemoglobin 13.2(L) 14.0 - 18.0 g/dl [facility] Hematocrit 39.2(L) 42.0 - 52.0 % [facility] Mean Corpuscular Volume 79.5(L) 80.0 - 98.0 fL [facility] Mean Corpuscular Hemoglobin 26.8(L) 27.0 - 33.0 pg [facility] Mean Corpuscular HGB Conc 33.7 31.0 - 36.0 g/dl [facility] Red Cell Distribution Width 14.7 11.0 - 16.0 % [facility] Platelet Count 211 160 - 400 X10*3/uL [facility] Mean Platelet Volume 8.8(L) 9.4 - 12.4 fL [facility] Neutrophils Percent Auto 45.9 45 - 73 % [facility] Imm Gran Pct Auto 0.7(H) 0.0 - 0.4 % [facility] Lymphocytes Percent Auto 41.3(H) 20 - 40 % [facility] Monocytes Percent Auto 10.8 2 - 11 % [facility] Eosinophils Percent Auto 1.0 0 - 4 % [facility] Basophils Percent Auto 0.3 0 - 2 % [facility] NRBC Pct Auto 0.0 0.0 - 0.2 /100WBC [facility] Neutrophils Absolute Auto 1.4(L) 2.0 - 8.3 x10*3/uL [facility] Imm Gran Abs Auto 0.02 0.00 - 0.03 X10*3/uL [facility] Lymphocytes Absolute Auto 1.3 1.2 - 4.9 X10*3/uL [facility] Monocytes Absolute Auto 0.3 0.1 - 1.2 X10*3/uL [facility] Eosinophils Absolute Auto 0.0 0.0 - 0.4 X10*3/uL [facility] Basophils Absolute Auto 0.0 0.0 - 0.2 X10*3/uL [facility] NRBC Abs Auto 0.000 0.0 - 0.012 X10*3/uL [facility] 05/15/2025 4:07 PM EDT 05/15/2025 4:10 PM EDT us Generic External Data Provider LAB BLOOD ORDERAB LES Final Result [facility] [address] [place] [phone] documented in this encounter Visit Diagnoses Not on filedocumented in this encounter Additional Health Concerns Assessment Noted Time PHQ-9 Depression Total Score: 0 11/01/19 24 3:16 PM EST documented as of this encounter Care Teams Land Management Supervisor Relationship Specialty Start Date End Date Berenice Yoder NP [address] [place] [phone] PCP - General Family Medicine 06/13/23 documented as of this encounter
--- OUTSIDE RECORDS SUMMARY | 2025-05-15 19:03 | XMS_ITS | Clinical Summary ---
Author Organization [employer] Address [address] [facility] [address] [place] [address] Care Team Providers Care Manufacturing Director Name Role Phone Beba Berenice TOMLINSON Primary Care Provider [phone] Allergies Active Allergy Reactions Criticality Noted Date Comments Amoxicillin 03/31/2021 Other reaction(s): Skin irritation Clavulanic Acid 03/31/2021 Other reaction(s): Skin irritation Cyclobenzaprine 12/17/2014 Medications Diclofenac Sodium (Voltaren) 1 % gel Apply topically every 12 (twelve) hours. 1 Active methadone (Dolophine) 10 MG/5ML solution Take by mouth. Active halobetasol (UltraVATE) 0.05 % creamIndications :Scar tissue Apply a pea size amount to affected area four times a day. Do not apply on face or genital areas 15 g 2 4 Active cholecalciferol (Vitamin D-3) 10 MCG (400 UNIT) tabletIndication s:Hypovitaminosi s D TAKE 2 TABLETS (800U) BY MOUTH EVERY DAY 180 tablet 1 5 Active omeprazole (PriLOSEC) [address] capsuleIndicatio ns:Gastroesophag eal reflux disease without esophagitis TAKE 1 CAPSULE BY MOUTH EVERY DAY BEFORE A MEAL 90 capsule 5 Active Sodium Fluoride (PreviDent 5000 Booster Plus) 1.1 % paste Apply 1 Application. to teeth 2 times daily. 112 g 3 5 Active ibuprofen 800 MG tabletIndication s:Pain TAKE 1 TABLET BY MOUTH EVERY 8 HOURS IF NEEDED TAKE WITH FOOD 60 tablet 5 Active Active Problems Problem Noted Date Diagnosed Date Sleep disturbance 09/26/2024 Assessment & Plan (09/26/2024 12:37 PM EST): -sleep hygiene measures reviewed: keep a consistent bed and awakening time; avoid coffee, caffinated drink or foods right before bed; avoid looking at phone or TV 30 min before bed; engage in daily physical activity 4-6 hrs before bed; keep the place where you sleep quiet and dark use a white noise machine or ear plugs to block out sound if needed -patient advised to sleep with cell phone outside her room; to prevent sound- wave distrubance. -gentle stretching/ meditate before bed Low serum thyroid stimulating hormone (TSH) 09/05 [...] liver enzymes Encounter for physical examination 09/25/2024 Assessment & Plan (12/03/2024 1:23 PM EDT): -There is no physical abnormality and there is this patient's ability to work; he is therefore cleared to proceed with employment. His employment physical form is completed and returned to him today -Reviewed healthy lifestyle and social behaviors Abnormal liver enzymes 04/22/2024 Assessment & Plan (11/11/2024 3:15 PM EDT): -Patient was lost to follow-up as he states he was doing well -There is no visible evidence of jaundice or liver function; this is likely a sensation of fatty liver disease -Was previously referred to GI, but he missed the appointment. -Repeat hepatic panel ordered today. Will place new GI referral pending lab results Assessment & Plan (12/03/2024 1:19 PM EDT): -persistently elevated -FIB-4 Calculation: 2.49 at 09/18/2024 11:47 AM Calculated from: SGOT/AST: 150 U/L at 09/18/2024 11:47 AM SGPT/ALT: 125 U/L at 09/18/2024 11:47 AM Platelets: 221 X10*3/uL at 09/18/2024 11:47 AM Age: 39 years -GI referral placed for further work-up given elevated fib score Assessment & Plan (04/22/2024 1:23 AM EDT): [...] Encounters Date Type Department Care Team Description 05/15/2025 Orders Only GENERIC EXTERNAL DATA DEPARTMENT Provider, Generic External Data 05/01/2025 3:00 PM EDT Office Visit [facility] [address] [place] [address] René Alas DMD 04/24/2025 Travel 03/26/2025 3:00 PM EDT Office Visit [facility] [address] [place] [address] René Alas DMD 02/23/2025 Refill [facility] [address] [place] [address] Berenice Yoder NP Pain from Last 3 Months Immunizations Immunization Administration Dates Next Due Hep B, adult [...] Sign Reading Time Taken Comments Blood Pressure 134/80 01/09/2025 3:02 PM EDT Pulse 74 01/09/2025 3:02 PM EDT Temperature 36.5 C (97.7 F) 09/25/2024 10:12 AM EST Respiratory Rate 16 09/25/2024 10:12 AM EST Oxygen Saturation 98% 09/25/2024 10:12 AM EST Inhaled Oxygen Concentration - - Weight 124 kg (274 lb) 09/25/2024 10:12 AM EST Height 170.2 cm (5' 7 ) 09/25/2024 10:12 AM EST Body Mass Index 42.91 09/25/2024 10:12 AM EST Plan of Treatment Upcoming Encounters Date Type Department Care Team (Late st Contact Info) Description 06/25/2025 2:15 PM EDT Office Visit [facility] [address] [place] [address] Adarsh Pugaaris [address] [place] [address] Health Maintenance Due Date Last Done Comments HIV Screening 1985 Disability Screening 1983 Family Planning (PISQ) 1998 HPV Vaccines (1 - Male 3-dos e series) 1998 Pneumococcal Vaccine: Pediatrics (0 to 5 Years) and At-Risk Patients (6 to 49) Years (2 of 2 - PCV) 06/21/2017 06/21/2016 Depression Screening 11/01/2024 11/01/2023, 11/01/2023 SDOH Screening 11/01/2024 11/01/2023 Hepatitis B Vaccines (3 of 3 - 3-dose series) 11/13/2024 09/18/2024, 07/23/2001 COVID-19 Vaccine ( - 2023-2 5 season) 2025 Influenza Vaccine (#1) 2025 4, 12/05/2013, 10/02/2012 Dental Oral Exam 06/13/2025 12/11/2024, 10/31/2023, 11/11/2022 Dental Prophylaxis 06/13/2025 12/11/2024, 11/11/2022 Alcohol/Substance Use Screening 09/18/2025 09/18/2024 Dental X-Ray: Bitewings 12/12/2025 12/12/19 25, 10/31/2023, 11/11/2022 Tobacco Screening 05/01/2026 05/01/2025 Dental X-Ray: Full Mouth 12/13/2027 12/11/2024 Lipid Panel 09/25/2029 09/25/2024, 10/20/2021, 2020 Zoster Vaccines (1 of 2) 2033 DTaP/Tdap/Td Vaccines (3 - T d or Tdap) 09/18/2034 09/18/2024, 10/02/2012 RSV Patients and Patients Aged 60 years or older (1 - 1-dose 75+ series) 2058 HIB Vaccines Aged Out No longer eligi ble based on patient's age to complete this topic Hepatitis A Vaccines Discontinued IPV Vaccines Aged Out No longer eligi ble based on patient's age to complete this topic Meningococcal B Vaccine Aged Out No l onger eligible based on patient's age to complete [...] LIMITED Routine 05/15/2025 6: 09 PM EDT LIPASE Routine 05/15/2025 4:07 PM EDT CREATINE KINASE, TOTAL Routine 5 4:07 PM EDT MAGNESIUM Routine 05/15/2025 4:07 PM EDT BASIC METABOLIC PANEL Routine 05/15/2025 4:07 PM EDT HEPATIC FUNCTION PANEL Routine 5 4:07 PM EDT ACETAMINOPHEN LEVEL Routine 05/15/2025 4 :07 PM EDT CBC WITH AUTO DIFFERENTIAL Routine 05/15/2025 4:07 PM EDT NO CHARGE PROCEDURE Routine 05/01/2025 3 :00 PM EDT CASE PRESENTATION, DETAILED AND EXTENSIVE TREATMENT PLANNING Routine 03/26/2025 3:00 PM EDT LIMITED ORAL EVALUATION - PROBLEM FOCUSED Routine 03/26/2025 3:00 PM EDT PROPHYLAXIS - ADULT Routine 12/11/2024 1 :00 PM EDT Dental calculus Dental plaque INTRAORAL - COMPLETE SERIES OF RADIOGRAPHIC IMAGES Routine 12/11/2024 1:00 PM EDT PERIODIC ORAL EVALUATION - ESTABLISHED PATIENT Routine 12/11/2024 1:00 PM EDT LIPID PANEL, STANDARD Routine 09/25/2024 11:13 AM EST Overweight from Last 3 Months or Most Recently Relevant to Health Maintenance Results * US Abdomen Limited (05/15/2025 6:09 PM EDT) Anatomical Region Laterality Modality Abdomen Ultrasound 05/15/2025 6:09 PM EDT Narrative 05/15/2025 6:10 PM EDT [address] [address] Ultrasound Report Signed Patient: Kong Diggs Jr MR#: [id number] : 1985 Acct:[id number] Age/Sex: 39 / M ADM Date: 05/15/25 Loc: .ED Attending Dr: Ordering Physician: Sofia Milan Date of Service: 05/15/25 Procedure(s): US abdomen limited Accession Number(s): [id number] cc: [facility]; Sofia Milan Reason for Exam: elevated bili CLINICAL HISTORY: elevated bili --- Additional Notes or Special Instructions: look at GB, liver, pancreas, ducts US abdomen limited Comparison: CT/DC/SR - CT ABDOMEN WITHOUT THEN WITH IV [...] signed by Sundar Jimenes MD in OV> 05/15/251809 DD/ 08 TD/TT: 05/15/251808 Cell Manager: Procedure Note Donotuseinterpreter, Image - 05/15/[address] [address] Ultrasound Report Signed Patient: Kong Diggs [facility]#: [id number] : 1985Acct:[id number] Age/Sex: 39 / MADM Date: 05/15/25 Loc: HO.ED Attending Dr: Ordering Physician: Sofia Milan Date of Service: 05/15/25 Procedure(s): US abdomen limited Accession Number(s): [id number] cc: [facility]; Sofia Milan Reason for Exam: elevated bili CLINICAL HISTORY: elevated bili --- Additional Notes or SpecialInstructions: look at GB, liver, pancreas, ducts US abdomen limited Comparison: CT/DC/SR - CT ABDOMEN WITHOUT THEN WITH IV [...] in OV> 05/15/25 181 DD/ 180 TD/TT: 05/15/25 180 Cell Manager: us [facility] External Provider IMG US PROCEDURES Final Result * (ABNORMAL) CBC auto differential (05/15/2025 4:07 PM EDT) White Blood Count 3.1(L) 4.8 - 10.8 X10*3/uL [facility] Red Blood Count 4.93 4.60 - 5.80 X10*6/uL [facility] Hemoglobin 13.2(L) 14.0 - 18.0 g/dl [facility] Hematocrit 39.2(L) 42.0 - 52.0 % [facility] Mean Corpuscular Volume 79.5(L) 80.0 - 98.0 fL [facility] Mean Corpuscular Hemoglobin 26.8(L) 27.0 - 33.0 pg [facility] Mean Corpuscular HGB Conc 33.7 31.0 - 36.0 g/dl [facility] Red Cell Distribution Width 14.7 11.0 - 16.0 % [facility] Platelet Count 211 160 - 400 X10*3/uL [facility] Mean Platelet Volume 8.8(L) 9.4 - 12.4 fL [facility] Neutrophils Percent Auto 45.9 45 - 73 % [facility] Imm Gran Pct Auto 0.7(H) 0.0 - 0.4 % [facility] Lymphocytes Percent Auto 41.3(H) 20 - 40 % [facility] Monocytes Percent Auto 10.8 2 - 11 % [facility] Eosinophils Percent Auto 1.0 0 - 4 % [facility] Basophils Percent Auto 0.3 0 - 2 % [facility] NRBC Pct Auto 0.0 0.0 - 0.2 /100WBC [facility] Neutrophils Absolute Auto 1.4(L) 2.0 - 8.3 x10*3/uL [facility] Imm Gran Abs Auto 0.02 0.00 - 0.03 X10*3/uL [facility] Lymphocytes Absolute Auto 1.3 1.2 - 4.9 X10*3/uL [facility] Monocytes Absolute Auto 0.3 0.1 - 1.2 X10*3/uL [facility] Eosinophils Absolute Auto 0.0 0.0 - 0.4 X10*3/uL [facility] Basophils Absolute Auto 0.0 0.0 - 0.2 X10*3/uL [facility] NRBC Abs Auto 0.000 0.0 - 0.012 X10*3/uL [facility] 05/15/2025 4:07 PM EDT 05/15/2025 4:10 PM EDT us Generic External Data Provider LAB BLOOD ORDERAB LES Final Result Performing Organization Address [facility]/ZIP Co de Phone Number [facility] [address] [place] [phone] * Magnesium (05/15/2025 4:07 PM EDT) Magnesium 2.1 1.6 - 2.6 mg/dL [facility] 05/15/2025 4:07 PM EDT 05/15/2025 4:10 PM EDT Generic External Data Provider LAB BLOOD ORDERAB LES Final Result Performing Organization Address [facility] [[email or web address]] Co ca Phone Number [facility] [address] [place] [phone] * Lipase (05/15/2025 4:07 PM EDT) Lipase 27 8 - 78 U/L [facility] 05/15/2025 4:07 PM EDT 05/15/2025 4:10 PM EDT us Generic External Data Provider LAB BLOOD ORDERAB LES Final Result Performing Organization Address [facility] [[email or web address]] Co de Phone Number [facility] [address] [place] [phone] * (ABNORMAL) Creatine Kinase, Total (05/15/2025 4:07 PM EDT) Creatine Kinase Total 29(L) 38 - 174 U/L [facility] 05/15/2025 4:07 PM EDT 05/15/2025 4:10 PM EDT Generic External Data Provider LAB BLOOD ORDERAB LES Final Result Performing Organization Address [facility] [[email or web address]] Co de Phone Number [facility] [address] [place] [phone] * Acetaminophen level (05/15/2025 4:07 PM EDT) Pathologist [facility] Acetaminophen LAB <3 <30 mcg/mL [facility] 05/15/2025 4:07 PM EDT 05/15/2025 4:10 PM EDT us Generic External Data Provider LAB BLOOD ORDERAB LES Final Result [facility] [address] [place] [address] [phone] * (ABNORMAL) Hepatic Function Panel (05/15/2025 4:07 PM EDT) [facility] Bilirubin, Total 11.2(H) 0.0 - 1.0 mg/dL [facility] Comment:Mild Icterus. Bilirubin, Direct 8.1(H) 0.0 - 0.5 mg/dL [facility] Comment:Mild Icterus. Aspartate Amino Transferase 147(H) 5 - 37 U/L [facility] Alanine Aminotransferase 94(H) 0 - 40 U/L [facility] Total Protein 8.3(H) 6.5 - 8.0 g/dL [facility] Albumin Level 3.6 3.5 - 5.0 g/dL [facility] Alkaline Phosphatase 297(H) 39 - 117 U/L [facility] 05/15/2025 4:07 PM EDT 05/15/2025 4:10 PM EDT us Generic External Data Provider LAB BLOOD ORDERAB LES Final Result Performing Organization Address City/[facility]/ZIP Co de Phone Number [facility] [address] [place] [phone] * Basic Metabolic Panel (05/15/2025 4:07 PM EDT) [facility] Sodium 137 135 - 145 mmol/L [facility] Potassium 4.2 3.3 - 5.1 mmol/L [facility] Chloride 101 96 - 108 mmol/L [facility] Carbon Dioxide 27 22 - 29 mmol/L [facility] Anion Gap 13 12 - 20 [facility] Urea Nitrogen (BUN) 11 9 - 16 mg/dL [facility] Creatinine, Serum 0.82 0.5 - 1.4 mg/dL [facility] Comment:Mild Icterus.Interpr et result with caution. Creatinine Clr Calc Pharmacy 149.5 [facility] Comment:eGFR (calculated fro m the MDRD study equation) and eCrCl(calculated from the Cockcroft-Gault equation) are based ondifferent parameters and may not yield comparable results.If eCrCl result is absurd, please check patient'sheight/weight. Estimated Glomerular Filt Rate >60 [facility] Comment:Chronic Kidney Disea se: Estimated GFR < 60 mL/min/[id number] Kidney Disease: Estimated GFR < 15 mL/min/1.73m2 Glucose 91 60 - 115 mg/dL [facility] Calcium 9.3 8.4 - 10.2 mg/dL [facility] 05/15/2025 4:07 PM EDT 05/15/2025 4:10 PM EDT us Generic External Data Provider LAB BLOOD ORDERAB LES Final Result [facility] [address] [place] [phone] [phone] * (ABNORMAL) Lipid Panel, Standard (09/25/2024 11:13 AM EST) Triglycerides 265(H) <150 mg/dL [facility] Comment:Desirable Triglyceri de: less than 150 mg/dLBorderline High Triglyceride 150-199 mg/dLHigh Triglyceride: 200-499 mg/dLVery High Triglyceride: greater than or equal to 5OO mg/dL Cholesterol 201(H) <200 mg/dL [facility] Comment:Desirable Cholestero l: less than 200 mg/dLBorderline High Cholesterol: 200-239 mg/dLHigh Cholesterol: greater than 239 mg/dL LDL Cholesterol Calculated 120(H) <100 mg/dL [facility] Comment:Desirable LDL: less than 100 mg/dLNear Optimal/Above Optimal LDL: 110- 129 mg/dLBorderline High LDL: 130-159 mg/dLHigh LDL: 160-189 mg/dLVery High LDL: greater than or equal to 190 mg/dL HDL Cholesterol 28(L) >40 mg/dL [facility] Comment:Desirable HDL: great er than 40 mg/dL Note: This HDL assay may give artificially low results in patients with liver disease. Blood Venous blood specimen / Unknown 09/25/2024 11:13 AM EST 09/25/2024 12:05 PM EST Berenice Yoder TACK PULLER MACHINE LAB BLOOD ORDERABLES Final Resu lt [facility] [address] [place] [address] [phone] from Last 3 Months or Most Recently Relevant to Health Maintenance Insurance [facility] C3 DENTAL-[facility] MEDICAID STAND ADULT Care Teams Manufacturing Director Relationship Specialty Start Date End Date Berenice Yoder NP [address] [place] [phone] PCP - General Family Medicine 06/13/23
--- OUTSIDE RECORDS SUMMARY | 2025-05-15 19:03 | XMS_ITS | Encounter Summary ---
Author Organization [employer] Address [address] [place] [address] [address] [place] [address] Care Team Providers Care Short Order Cook Name Role Phone Shell PiperP Primary Care Provider Berenice Lopez NP Primary Care Provider [phone] Encounter Details Date Type Department Care Team (Latest Contact Info) Description 06/08/2020 Abstract [facility] CONVERSIONS Dental, Provider, DDS Social History [...] Upcoming Encounters Date Type Department Care Team ( st Contact Info) Description 06/25/2025 2:15 PM EDT Office Visit [facility] [address] [place] [address] Vivien, Carmencita [address] [place] [address] documented as of this encounter Visit Diagnoses Not on filedocumented in this encounter Care Teams Short Order Cook Relationship Specialty Start Date End Date Shell Piper FNP PCP - General Family Medicine 06/28/21 06/12/23 Berenice Yoder NP [address] [place] [address] PCP - General Family Medicine 06/13/23 documented as of this encounter
--- OUTSIDE RECORDS SUMMARY | 2025-05-15 19:03 | XMS_ITS | Encounter Summary ---
Author Organization [employer] Address [address] [facility] [address] [place] [address] Care Team Providers Care Field Artillery Officer Name Role Phone Berenice Yoder NP Primary Care Provider [phone] Reason for Visit * Reason Comments Med Refill Encounter Details Date Type Department Care Team (Late Contact Info) Description 08/22/2023 Refill [facility] [address] [place] [phone] Name, MD Dennis [address] [place] [address] Pain Social History Tobacco Use Types Packs/Day [...] Encounters Date Type Department Care Team (Late Contact Info) Description 06/25/2025 2:15 PM EDT Office Visit [facility] [address] [place] [address] Adarsh Pugaaris [address] [place] [address] documented as of this encounter Visit Diagnoses Diagnosis Pain Generalized pain documented in this encounter Care Teams Field Artillery Officer Relationship Specialty Start Date End Date Berenice Yoder NP [address] [place] [address] PCP - General Family Medicine 06/13/23 documented as of this encounter
--- OUTSIDE RECORDS SUMMARY | 2025-05-15 19:03 | XMS_ITS | Encounter Summary ---
Author Organization [employer] Address [address] [facility] [address] [place] [address] Care Team Providers Care Curtain Worker Name Role Phone Berenice Yoder NP Primary Care Provider [phone] Reason for Visit * Reason Onset Date Comments Appointment Request 09/08/2023 Encounter Details Date Type Department Care Team (Late st Contact Info) Description 09/08/2023 Telephone [facility] [address] [place] [address] Berenice Yoder NP [address] [place] [address] Appointment Request Social History Tobacco Use Types [...] Description 06/25/2025 2:15 PM EDT Office Visit [facility] [address] [place] [address] Carmencita Puga [address] [place] [address] documented as of this encounter Visit Diagnoses Not on filedocumented in this encounter Care Teams Curtain Worker Relationship Specialty Start Date End Date Berenice Yoder NP [address] [place] [address] PCP - General Family Medicine 06/13/23 documented as of this encounter
--- OUTSIDE RECORDS SUMMARY | 2025-05-15 19:03 | XMS_ITS | Encounter Summary ---
Author Organization [employer] [facility] Address [address] [place] [address] [address] [place] [address] Care Team Providers Care Supervisor Carding Name Role Phone Berenice Yoder NP Primary Care Provider [phone] Reason for Visit * Reason Comments Med Refill Encounter Details Date Type Department Care Team (Late Contact Info) Description 06/29/2023 Refill [facility] [address] [place] [address] Shell Piper, WEATHERIZATION DIRECTOR Pain Social History Tobacco Use Types Packs/Day [...] Description 06/25/2025 2:15 PM EDT Office Visit [facility] [address] [place] [address] Vivien, Carmencita [address] [place] [address] documented as of this encounter Visit Diagnoses Diagnosis Pain Generalized pain documented in this encounter Care Teams Supervisor Carding Relationship Specialty Start Date End Date Berenice Yoder NP [address] [place] [address] PCP - General Family Medicine 06/13/23 documented as of this encounter
[2025-05-15] MEDS: iohexoL 350 MG/ML 100 ML INFUS..BTL IV (19:43)
[2025-05-15 19:51] LABS: Ammonia 46 umol/L (13-55)
[2025-05-15 20:00] VITALS: BP 140/86; PULSE 76; RESP 17; TEMP 37.1; O2SAT 96
[2025-05-15 20:23] LABS: Appearance Urine Clear; Glucose Urine UA Negative (Negative); PH 6.5 (5.0-9.0); Specific Gravity - Urine >= 1.030 (1.005-1.025); UMIC TRIGGER UACC YES
[2025-05-15 22:00] VITALS: BP 149/84; PULSE 70; RESP 15; TEMP 37.1; O2SAT 99
[2025-05-15 22:46] LABS: INTERNATIONAL NORM RATIO 1.0 (0.9-1.1); Prothrombin Time 11.0 SEC (10.9-12.4)
--- NOTE | 2025-05-15 23:29 | PM.IMHP ---
History of Present Illness Date of Service: 05/15/25 Attending physician on admission: Kuldeep Riggs Chief Complaint: jaundice Patient is a 39-year-old male with a past medical history significant for hepatitis-C, 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 He denies any abdominal pain, vomiting or diarrhea. No recent illness, sore throat, headache, cough. he reports urinary frequency and dark urine. no heartburn or GERD. he has a hx of hep c but states there was no treatment as his viral load was undetectable and he was told to drink a lot of water . he does not consume etoh and states that he only uses methadone, no longer IVDU. Review of Systems Constitutional: Constitutional: Denies body ache(s), Denies chills, Reports fatigue, Denies fever(s) and Denies headache(s) Eyes: Eyes: Denies change in vision ENT: Denies headache(s), Denies nasal congestion and Denies sore throat Cardiovascular: Cardiovascular: Denies chest pain, Denies rapid heart rate, Denies leg edema, Denies lightheadedness and Denies dyspnea Respiratory: Respiratory: Denies chest congestion, Denies cough, Denies dyspnea and Denies wheezing Gastrointestinal: Gastrointestinal: Denies abdominal pain, Denies melena, Denies diarrhea, Reports nausea and Denies vomiting Genitourinary: Genitourinary: Denies dysuria and Denies urinary urgency Musculoskeletal: Musculoskeletal: Denies myalgias Integumentary/Breasts: Skin/Breast: Denies rash Neurologic: Denies confusion and Denies headache(s) Psychiatric: Psychiatric: Denies confusion Endocrine: Endocrine: Reports fatigue Hematologic/Lymphatic: Hematologic/Lymphatic: Denies easy bleeding and Denies easy bruising Allergic/Immunologic: Allergic/Immunologic: Denies wheezing PMFSH Medical History Hepatitis C IVDU (intravenous drug user) Functional capacity: independent ambulation Surgical History Hx of cystoscopy Social History Smoked in Last 30 Days: No Any prior treatment program specific to substance use: Yes (pt currently taking methadone) Advance Directives: No Advance Directives Information Provided: No Narrative: on methadone, no etoh or smoking Meds Allergies Allergy/AdvReac Type Severity Reaction Status Date / Time amoxicillin (AMOXICILLIN) Allergy Unknown RASH Verified 05/15/25 15:34 From FLEXERIL Allergy Unknown STOMACH Uncoded 01/31/24 15:21 UPSET Active Medications: Current Medications Acetaminophen (Acetaminophen 325 Mg Tablet) 650 mg PO Q6H PRN PRN Reason: Pain, Mild 1-3,fever,headache Sodium Chloride (0.9 % Sodium Chloride Flush 3 Ml Syringe) 3 ml IVFLUSH QSHIFT [facility] Home Medications ?Medication ?Instructions ?Recorded ?Confirmed ?Last Taken ?Type methadone 10 mg/mL oral concentrate See Rx Instructions PO Q4H 01/26/21 03/23/21 Unknown History omeprazole 20 mg capsule,delayed 20 mg PO DAILY 08/03/23 Unknown History release Physical Exam Vital Signs and Narrative: Vital Signs: Last Vital Signs Temp 98.7 F 05/15/25 22:00 Pulse 70 05/15/25 22:00 Resp 15 05/15/25 22:00 BP 149/84 H 05/15/25 22:00 Pulse Ox 99 05/15/25 22:00 O2 Del Method Room Air 05/15/25 22:00 BMI result Body Mass Index 35.9 General: AOx3, no acute distress Resp: CTA bilaterally HEENT: +scleral icterus CVS: S1, S2, RRR GI: +BS, NT, no distention Skin: Warm, dry Neuro: Cranial nerves II-XII grossly intact bilaterally. Motor grossly intact bilaterally. no asterixis Extremities: No LE edema Psych: Appropriate affect Const: General: No confusion Orientation/consciousness: No confusion Neuro: General: No confusion Results Labs 05/15/25 16:07 05/15/25 16:07 Labs: Laboratory Results - last 24 hr 05/15/25 05/15/25 05/15/25 16:07 19:15 19:24 MCV 79.5 L MCH 26.8 L MCHC 33.7 RDW 14.7 Plt Count 211 MPV 8.8 L Immature Gran % (Auto) 0.7 H Neut % (Auto) 45.9 Lymph % (Auto) 41.3 H [place] % (Auto) 10.8 Eos % (Auto) 1.0 Baso % (Auto) 0.3 Lymph # (Auto) 1.3 [place] # (Auto) 0.3 Eos # (Auto) 0.0 Baso # (Auto) 0.0 Abs Immat Gran (auto) 0.02 Absolute Neuts (auto) 1.4 L Absolute Nucleated RBC 0.000 Nucleated RBC % (auto) 0.0 PT INR Anion Gap 13 Estim Creat Clear Calc 149.5 Estimated GFR > 60 Random Glucose 91 Lactic Acid Calcium 9.3 Magnesium 2.1 Total Bilirubin 11.2 H Direct Bilirubin 8.1 H AST 147 H ALT 94 H Alkaline Phosphatase 297 H Ammonia 46 Total Creatine Kinase 29 L Total Protein 8.3 H Albumin 3.6 Lipase 27 Urine Color Urine Appearance Urine pH Ur Specific [place] Urine Protein Urine Glucose (UA) Urine Ketones Urine Blood Urine Nitrite Ur Leukocyte Esterase Urine RBC Urine WBC Ur Squamous Epith Cells Urine Bacteria Hyaline Casts Acetaminophen < 3 Ethyl Alcohol Monoscreen Negative 05/15/25 05/15/25 20:16 22:08 MCV MCH MCHC RDW Plt Count MPV Immature Gran % (Auto) Neut % (Auto) Lymph % (Auto) Bertie % (Auto) Eos % (Auto) Baso % (Auto) Lymph # (Auto) Bert[place] # (Auto) Eos # (Auto) Baso # (Auto) Abs Immat Gran (auto) Absolute Neuts (auto) Absolute Nucleated RBC Nucleated RBC % (auto) PT 11.0 INR 1.0 Anion Gap Estim Creat Clear Calc Estimated GFR Random Glucose Lactic Acid 0.9 Calcium Magnesium Total Bilirubin Direct Bilirubin AST ALT Alkaline Phosphatase Ammonia Total Creatine Kinase Total Protein Albumin Lipase Urine Color Dark Yellow Urine Appearance Clear Urine pH 6.5 Ur Specific [place] >= 1.030 H Urine Protein 30 (1+) H Urine Glucose (UA) Negative Urine Ketones Negative Urine Blood Negative Urine Nitrite Negative Ur Leukocyte Esterase Negative Urine RBC 0-2 Urine WBC 0-5 Ur Squamous Epith Cells 0-2 Urine Bacteria None Seen Hyaline Casts 0-2 Acetaminophen Ethyl Alcohol < 10 Monoscreen Assessment and Plan (1) Hyperbilirubinemia: Status: Acute (2) Jaundice: Status: Acute Plan Patient is a 39-year-old male with a past medical history significant for hepatitis-C, 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 hyperbilirubinemia with jaundice - AST 147, ALT 94, alk phos 297, t bili 11.2, d bili 8.1 - WBC 3.1, vitals stable, no infection identified, blood cultures x2 pending, lactic acid normal - hbg 13.2/hct 39.2, MCV 79.5 - CPK 29 - ammonia normal - abd US with hepatomegaly with steatosis, no evidence for cholecystitis - abdominopelvic CT with right lower pole kidney stones, hepatosplenomegaly with hepatic steatosis. Diffuse esophageal mural thickening. Posterior paraesophageal node measuring 1 cm, may be reactive however is nonspecific. - INR normal - mono negative - UA negative - ED provider spoke with Dr. Coombs who suggested abdomen duplex ultrasound, hepatitis panel and further sepsis w/u - GI and hematology consult - abd duplex US ordered - hep panel and hep c viral load pending - monitor CBC and CMP hx IVDU on methadone - goes to [facility], will need dose confirmed - resume methadone when appropriate class 2 obesity - BMI 35.9 - weight loss encouraged full code VTE prophy: heparin Patient is a 39-year-old male with hyperbilirubinemia and jaundice, requiring admission for at least 2 midnight stay for further evaluation, specialist consultations and monitoring. Quality Stroke Does the patient have a stroke diagnosis?: No VTE Prior VTE?: No VTE Risk Level:: Medical - moderate - high VTE Device Contraindication: Treatment Not Indicated VTE Drug Contraindication: N/A - Med Ordered
[2025-05-16] MEDS: Lactated Ringers 1,000 ML 80 ML IVCONT ×2 (00:33→14:20)
[2025-05-16] MEDS: 0.9 % Sodium Chloride Flush 3 ML SYRINGE IVFLUSH (00:59)
[2025-05-16 01:12] VITALS: BMI 36.1
[2025-05-16 02:20] VITALS: BP 129/73; PULSE 72; RESP 14; TEMP 36; O2SAT 94
[2025-05-16 05:55] LABS: MANUAL DIFF FLAG NO
[2025-05-16 06:17] LABS: Alanine Aminotransferase 80 U/L (0-40); Albumin Level 3.1 g/dL (3.5-5.0); Alkaline Phosphatase 241 U/L (39-117); Anion Gap 11 (12-20); Aspartate Amino Transferase 129 U/L (5-37); Blood Urea Nitrogen 9 mg/dL (9-16); Calcium 8.7 mg/dL (8.4-10.2); Carbon Dioxide 29 mmol/L (22-29); Chloride 102 mmol/L (96-108); Creatinine Clr Calc Pharmacy 135.0; Estimated Glomerular Filt Rate > 60; Potassium 4.7 mmol/L (3.3-5.1); Sodium 137 mmol/L (135-145); Total Protein 7.4 g/dL (6.5-8.0)
[2025-05-16 06:18] LABS: Hematocrit 36.1 % (42.0-52.0); Hemoglobin 11.9 g/dl (14.0-18.0); Imm Gran Abs Auto 0.02 X10*3/uL (0.00-0.03); Imm Gran Pct Auto 0.7 % (0.0-0.4); Lymphocytes Absolute Auto 1.1 X10*3/uL (1.2-4.9); Mean Corpuscular HGB Conc 33.0 g/dl (31.0-36.0); Mean Corpuscular Hemoglobin 26.7 pg (27.0-33.0); Mean Corpuscular Volume 80.9 fL (80.0-98.0); NRBC Abs Auto 0.000 X10*3/uL (0.0-0.012); NRBC Pct Auto 0.0 /100WBC (0.0-0.2); Platelet Count 200 X10*3/uL (160-400); Red Blood Count 4.46 X10*6/uL (4.60-5.80); White Blood Count 2.7 X10*3/uL (4.8-10.8)
[2025-05-16 07:31] VITALS: BP 121/67; PULSE 56; RESP 14; TEMP 36.8; O2SAT 93
--- NOTE | 2025-05-16 07:37 | P.PNIM_ITS ---
Subjective Subjective Date of Service: 05/16/25 Interval History: f/u on jaundice in patient with hep C, chronic liver disease denies alcohol use Physical Exam 2 Vital Signs: Vital Signs: Last Vital Signs Temp 98.3 F 05/16/25 07:31 Pulse 56 05/16/25 07:31 Resp 14 05/16/25 07:31 BP 121/67 05/16/25 07:31 Pulse Ox 93 05/16/25 07:31 O2 Del Method Room Air 05/16/25 07:31 BMI result Body Mass Index 36.1 Const: Other: General: AO X 3, no acute distress Resp: CTA bilateral HEENT: sclera icteris CVS: S1,S2,RRR GI: +BS, NT, no distention Skin: No rash Neuro: motor grossly intact Psych: appropriate affect Objective Data Active Medications Acetaminophen (Acetaminophen 325 Mg Tablet) 650 mg PO Q6H PRN PRN Reason: Pain, Mild 1-3,fever,headache Calcium Carbonate (Calcium Carbonate 750 Mg Tab.Chew) 750 mg PO Q4H PRN PRN Reason: Heartburn Heparin Sodium (Porcine) (Heparin Sodium,Porcine 5,000 Unit/Ml Vial) 5,000 unit SUBCUT Q8H [facility] Last Admin: 05/16/25 05:54 Dose: 5,000 unit Documented By: BECKY Lactated Ringer's (Lr) 1,000 mls @ 80 mls/hr IVCONT .[id number] [facility] Last Admin: 05/16/25 00:33 Dose: 80 mls/hr Documented By: DARSHANA Magnesium Hydroxide (Milk Of Magnesia 30 Ml Oral.Susp) 30 ml PO DAILY PRN PRN Reason: Constipation Melatonin (Melatonin 3 Mg Tablet) 6 mg PO BEDTIME PRN PRN Reason: Insomnia Ondansetron HCl (Ondansetron Hcl 4 Mg/2 Ml Vial) 4 mg IVPUSH Q8H PRN PRN Reason: Nausea and Vomiting Oxycodone HCl (Oxycodone Hcl Immed Release 5 Mg Tablet) 5 mg PO Q6H PRN PRN Reason: Pain, Severe (Pain Scale 7-10) Sodium Chloride (0.9 % Sodium Chloride Flush 3 Ml Syringe) 3 ml IVFLUSH QSHIFT [facility] Last Admin: 05/16/25 00:59 Dose: 3 ml Documented By: DARSHANA Labs 05/16/25 05:28 05/16/25 05:28 Labs: Laboratory Results - last 24 hr 05/15/25 05/15/25 05/15/25 16:07 19:15 19:24 MCV 79.5 L MCH 26.8 L MCHC 33.7 RDW 14.7 Plt Count 211 MPV 8.8 L Immature Gran % (Auto) 0.7 H Neut % (Auto) 45.9 Lymph % (Auto) 41.3 H [place] % (Auto) 10.8 Eos % (Auto) 1.0 Baso % (Auto) 0.3 Lymph # (Auto) 1.3 [place] # (Auto) 0.3 Eos # (Auto) 0.0 Baso # (Auto) 0.0 Abs Immat Gran (auto) 0.02 Absolute Neuts (auto) 1.4 L Absolute Nucleated RBC 0.000 Nucleated RBC % (auto) 0.0 PT INR Anion Gap 13 Estim Creat Clear Calc 149.5 Estimated GFR > 60 Random Glucose 91 Lactic Acid Calcium 9.3 Magnesium 2.1 Total Bilirubin 11.2 H Direct Bilirubin 8.1 H AST 147 H ALT 94 H Alkaline Phosphatase 297 H Ammonia 46 Total Creatine Kinase 29 L Total Protein 8.3 H Albumin 3.6 Lipase 27 Urine Color Urine Appearance Urine pH Ur Specific [place] Urine Protein Urine Glucose (UA) Urine Ketones Urine Blood Urine Nitrite Ur Leukocyte Esterase Urine RBC Urine WBC Ur Squamous Epith Cells Urine Bacteria Hyaline Casts Acetaminophen < 3 Ethyl Alcohol Monoscreen Negative 05/15/25 05/15/25 05/16/25 20:16 22:08 05:28 MCV 80.9 MCH 26.7 L MCHC 33.0 RDW 14.6 Plt Count 200 MPV 9.2 L Immature Gran % (Auto) 0.7 H Neut % (Auto) 44.7 L Lymph % (Auto) 39.8 [place] % (Auto) 12.6 H Eos % (Auto) 1.5 Baso % (Auto) 0.7 Lymph # (Auto) 1.1 L [place] # (Auto) 0.3 Eos # (Auto) 0.0 Baso # (Auto) 0.0 Abs Immat Gran (auto) 0.02 Absolute Neuts (auto) 1.2 L Absolute Nucleated RBC 0.000 Nucleated RBC % (auto) 0.0 PT 11.0 INR 1.0 Anion Gap 11 L Estim Creat Clear Calc 135.0 Estimated GFR > 60 Random Glucose 85 Lactic Acid 0.9 Calcium 8.7 D Magnesium Total Bilirubin 9.1 H Direct Bilirubin AST 129 H ALT 80 H Alkaline Phosphatase 241 H Ammonia Total Creatine Kinase Total Protein 7.4 Albumin 3.1 L Lipase Urine Color Dark Yellow Urine Appearance Clear Urine pH 6.5 Ur Specific [place] >= 1.030 H Urine Protein 30 (1+) H Urine Glucose (UA) Negative Urine Ketones Negative Urine Blood Negative Urine Nitrite Negative Ur Leukocyte Esterase Negative Urine RBC 0-2 Urine WBC 0-5 Ur Squamous Epith Cells 0-2 Urine Bacteria None Seen Hyaline Casts 0-2 Acetaminophen Ethyl Alcohol < 10 Monoscreen Assessment and Plan (1) Jaundice: Status: Acute (2) Hyperbilirubinemia: Status: Acute Plan Patient is a 39-year-old male with a past medical history significant for hepatitis-C, 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 Direct hyperbilirubinemia with jaundice likely from underlying hepatocellular disease, hep C, slightly down today abd US with hepatomegaly with steatosis, no evidence for cholecystitis hold areterial US GI consult pending hx IVDU on methadone Methadone dose verified class 2 obesity - BMI 35.9 - weight loss encouraged full code VTE prophy: heparin Patient is a 39-year-old male with hyperbilirubinemia and jaundice, requiring admission for at least 2 midnight stay for further evaluation, specialist consultations and monitoring. Quality Stroke Does the patient have a stroke diagnosis?: No VTE Prior VTE?: No VTE Risk Level:: Medical - moderate - high VTE Device Contraindication: Treatment Not Indicated VTE Drug Contraindication: N/A - Med Ordered
[2025-05-16 07:44] LABS: INTERNATIONAL NORM RATIO 1.0 (0.9-1.1); Prothrombin Time 11.0 SEC (10.9-12.4)
[2025-05-16 08:17] LABS: Iron 61 mcg/dL (45-160); Percent Iron Saturation 24 % (15-50); Total Iron Binding Capacity 251 mcg/dL (228-428); Unsaturated Iron Binding 190 ug/dL
[2025-05-16 08:35] LABS: Ferritin 170 ng/mL (20-250)
[2025-05-16 08:51] LABS: HBc Num1 0.93 S/CO (0.00-0.79)
[2025-05-16 08:59] LABS: HBS Num1 > 1000.00 mIU/mL (0-7.99); HBc Num1 0.86 S/CO (0.00-0.79); HBsAGNum1 0.35 S/CO (0.00-0.99); Hepatitis A Antibody IgM 0.28 Index (0-0.79); Hepatitis B Surface Antigen Negative (Negative); ~HepC Num1 7.97 S/CO (0.00-0.79); ~Hepatitis A Antibody IgM Nonreactive (Nonreactive); ~Hepatitis B Surface Antibody REACTIVE (Nonreactive); ~Hepatitis C Antibody Reactive (Nonreactive)
--- NOTE | 2025-05-16 09:02 | PHA.MEDREC ---
Addendum entered by Deepti Brandt RPh 05/16/25 09:33: methadone is pending verification form, otherwise reviewed by pharmacist Original Note: Pharmacy Consult ? Medication Reconciliation Pharmacy has completed the medication reconciliation. Spoke with pt and he confirmed his medications. Pt taking Methadone 99mg QD and Omeprazole 20mg caps as needed for acid reflux; pt confirmed he last took Methadone yesterday.
--- NOTE | 2025-05-16 09:43 | MHC.RECOVRN ---
TW called [facility] to verify methadone dosing. Per SWATI Miles @ [facility], pt was last dosed 05/13/25@ 530am and received 99mg. Pt was given 6 take home doses to carry him through until 05/19/25. Pt to return to [facility] 05/20/25 for subsequent dosing.
--- NOTE | 2025-05-16 10:03 | HE.PHANOTE ---
methadone Per Kailyn Moore contacted ([phone]). Per Ginger patient gets methadone 99 mg daily. Last seen at clinic on 05/13/25 and was given 6 take home bottles.
[2025-05-16 10:51] LABS: HBc Num2 0.71 S/CO; HBc Num3 0.72 S/CO
[2025-05-16] MEDS: methADONE HCl 20 MG/2 ML ORAL.CONC 99 MG PO (11:01)
--- NOTE | 2025-05-16 11:17 | MHC.CM.PN ---
pt lives alone is working has a ride dc plan home n/s
--- NOTE | 2025-05-16 12:53 | PM.GICN ---
History of Present Illness Data of Consult Service Date: 05/16/25 Requesting physician: Kaylie Warren Primary Care Provider: [facility] Reason for consult: Jaundice 39-year-old gentleman with past medical history hepatitis-C, ongoing IV drug use, obesity, who presented to the hospital for constitutional symptoms and was found to be grossly jaundice. He reports that around 2 weeks ago he first started noticing yellowing of eyes. This was accompanied by malaise, loss of appetite and fatigue. A few days before coming to the hospital he also started noticing more sleepiness through the day and the urine getting progressively darker and therefore decided to come in. He does not report any abd pain, fevers or chills. Vitals in the hospital were significant for hypertension. Labs with pancytopenia but normal platelets. INR 1.0, LFTs with bilirubin of 11.2 yesterday, that has decreased to 9.1 today. AST greater than ALT alk-phos 241. Most recent HCV viral load from 09/[address] abdomen and pelvis with contrast without any portal venous thrombosis. He reports he has had gross jaundice at least twice over the last 5 years, both the times it resolved spontaneously. He does not report any ongoing etOH use. He did use recreational drugs recently almost 3 weeks ago. No new meds or supplements. No recent travel. Not sexually active. Review of Systems Review of Systems: Yes all other systems are reviewed and are negative [facility] Past Medical History Medical History Hepatitis C IVDU (intravenous drug user) Surgical History Surgical History (Updated 05/16/25 @ 14:08 by Ashley Mackay MD) Hx of cystoscopy Social History Social History (Reviewed 01/31/24 @ 15:01 by Ashwin Donohue [facility]) Household Members: None Housing: Apartment Do you presently have visiting nurse or other home services: No Patient Tobacco Use Status: Never used Tobacco Smoked in Last 30 Days: No Currently Displaying Signs/Symptoms of Drug Intoxication Withdrawal: No Any prior treatment program specific to substance use: Yes (pt currently taking methadone) Have you been hit, kicked, punched, or otherwise hurt by someone within the past year? If so, by whom?: No Do you feel safe in your current relationship?: No Current Relationship Is there a partner from a previous relationship who is making you feel unsafe now?: No Are you made to feel afraid or neglected: No Advance Directives: No Advance Directives Information Provided: No Do you have a plan to hurt others: No Plan Recently lost weight without trying: No How much weight loss: Not applicable Eating poorly because of decreased appetite: No Nutrition screen score: 0 Nutrition Risks: No Nutritional Risk Poor oral hygiene: No service: No Meds Allergies Allergy/AdvReac Type Severity Reaction Status Date / Time amoxicillin (AMOXICILLIN) Allergy Unknown RASH Verified 05/15/25 15:34 From FLEXERIL Allergy Unknown STOMACH Uncoded 01/31/24 15:21 UPSET Active Medications: Current Medications Acetaminophen (Acetaminophen 325 Mg Tablet) 650 mg PO Q6H PRN PRN Reason: Pain, Mild 1-3,fever,headache Calcium Carbonate (Calcium Carbonate 750 Mg Tab.Chew) 750 mg PO Q4H PRN PRN Reason: Heartburn Heparin Sodium (Porcine) (Heparin Sodium,Porcine 5,000 Unit/Ml Vial) 5,000 unit SUBCUT Q8H [facility] Last Admin: 05/16/25 05:54 Dose: 5,000 unit Lactated Ringer's (Lr) 1,000 mls @ 80 mls/hr IVCONT .[id number] [facility] Last Admin: 05/16/25 00:33 Dose: 80 mls/hr Magnesium Hydroxide (Milk Of Magnesia 30 Ml Oral.Susp) 30 ml PO DAILY PRN PRN Reason: Constipation Melatonin (Melatonin 3 Mg Tablet) 6 mg PO BEDTIME PRN PRN Reason: Insomnia Methadone HCl (Methadone Hcl 20 Mg/2 Ml Oral.Conc) 99 mg PO DAILY [facility] Last Admin: 05/16/25 11:01 Dose: 99 mg Ondansetron HCl (Ondansetron Hcl 4 Mg/2 Ml Vial) 4 mg IVPUSH Q8H PRN PRN Reason: Nausea and Vomiting Oxycodone HCl (Oxycodone Hcl Immed Release 5 Mg Tablet) 5 mg PO Q6H PRN PRN Reason: Pain, Severe (Pain Scale 7-10) Sodium Chloride (0.9 % Sodium Chloride Flush 3 Ml Syringe) 3 ml IVFLUSH QSHIFT [facility] Last Admin: 05/16/25 08:44 Dose: Not Given Home Medications ?Medication ?Instructions ?Recorded ?Confirmed ?Last Taken ?Type methadone 10 mg/mL oral concentrate 99 mg PO DAILY 01/26/21 05/16/2505/15/25 History omeprazole 20 mg capsule,delayed 20 mg PO DAILY@0630 PRN Acid Reflux 08/03/23 05/16/25 Unknown History release Physical Exam Exam: Exam: No apparent distress icteric Abdomen soft, nondistended, nontender No overt resp distress Alert and oriented x3, no asterixis normal gait Vital Signs: Vital Signs: Last Vital Signs Temp 98.3 F 05/16/25 07:31 Pulse 56 05/16/25 07:31 Resp 14 05/16/25 07:31 BP 121/67 05/16/25 07:31 Pulse Ox 93 05/16/25 07:31 O2 Del Method Room Air 05/16/25 07:31 BMI result Body Mass Index 36.1 Results Labs 05/16/25 05:28 05/16/25 05:28 Labs: Short CBC 05/15/25 05/16/25 Range/Units 16:07 05:28 WBC 3.1 L 2.7 L (4.8-10.8) X10*3/uL Hgb 13.2 L 11.9 L (14.0-18.0) g/dl Hct 39.2 L 36.1 L (42.0-52.0) % Plt Count 211 200 (160-400) X10*3/uL BMP 05/15/25 05/16/25 16:07 05:28 Sodium 137 137 Potassium 4.2 4.7 Chloride 101 102 Carbon Dioxide 27 29 BUN 11 9 Creatinine 0.82 0.91 Calcium 9.3 8.7 D Cardiac Enzymes 05/15/25 Range/Units 16:07 Total Creatine Kinase 29 L (38-174) U/L Liver Function 05/15/25 05/16/25 Range/Units 16:07 05:28 Total Bilirubin 11.2 H 9.1 H (0.0-1.0) mg/dL Direct Bilirubin 8.1 H (0.0-0.5) mg/dL AST 147 H 129 H (5-37) U/L ALT 94 H 80 H (0-40) U/L Alkaline Phosphatase 297 H 241 H (39-117) U/L Albumin 3.6 3.1 L (3.5-5.0) g/dL Urine 05/15/25 Range/Units 20:16 Urine Color Dark Yellow Urine Appearance Clear Urine pH 6.5 (5.0-9.0) Ur Specific [place] >= 1.030 H (1.005-1.025) Urine Protein 30 (1+) H (Neg-Trace) mg/dL Urine Glucose (UA) Negative (Negative) mg/dL Assessment and Plan (1) Jaundice: Status: Acute (2) Hepatosplenomegaly: Status: Chronic Plan Pt with acute onset of jaundice x 2 weeks with progressive fatigue and loss of appetite. Ddx include acute hep, AIH, DILI. Pt does not report any etOH use but given AST:ALT ratio, and hepatic steatosis noted on imaging will check PETH. Obstructive jaundice less likely given imaging findings. Similarly portal vein thrombosis also less likely based on CT. Lack of coagulopathy and encephalopathy argues against impending liver failure. Plan: - Monitor INR and mental status daily - Daily MELD labs - Add on PETH - check HCV and HBV viral load given recent IVDU 3 weeks ago - Autoimmune hep serologies ordered - Ok for regular diet - If LFTs cont to uptrend and above w.up negative, will likely need a liver bx Thank you for allowing me to participate in his care. Please do not hesitate to reach out for questions or concerns. Procedures Date of Service Date of Service: 05/17/25
--- NOTE | 2025-05-16 14:08 | PM.HEMONCCN ---
Subjective - Subjective Chief complaint: Jaundice Patient: new to practice Consult date: 05/16/25 Primary Care Provider: [facility] Supervisor General Utilized?: No - Kiswahili Speaking HPI - Consult Narrative Reason for consult: Hepatosplenomegaly Narrative: Kong Diggs Jr is a 39 year old male who presented to ED because in noticed yellowing of his skin. His past medical history significant for hepatitis-C, past history of drug abuse, on methadone. Blood work in the ED revealed a serum bilirubin of 11.2, direct bilirubin of 8.1. Transaminitis with AST of 147, ALT of 94 and alk-phos of 297. LDH was normal at 273. Hep C viral load was not detected in September 2024. Patient denies any use of alcohol or IV drugs. He has been sober for many years. He reports nausea but no abdominal pain. He has been told of fatty liver as level as enlarged spleen in the past. Review of Systems - Constitutional Denies fatigue, Denies lack of energy, Denies malaise, Denies night sweats, Denies weight loss - Neurologic Denies confusion, Denies headache(s) [facility], [facility] Medical History: Medical History (Last Reviewed 05/16/25 @ 02:30 by Megha Multani RN) Hepatitis C IVDU (intravenous drug user) Functional capacity: independent ambulation Surgical History: Surgical History (Last Reviewed 05/16/25 @ 02:30 by Megha Multani RN) Hx of cystoscopy Social History: Social History (Last Reviewed 01/31/24 @ 15:01 by Ashwin Donohue [facility]) Living Situation History: Household Members: None Housing: Apartment Do you presently have visiting nurse or other home services: No Alcohol History Details: 1. How often do you have a drink containing alcohol?: a. Never 3. How often do you have six or more drinks on one occasion?: a. Never AUDIT-C Alcohol total score: 0 Currently Displaying Signs/Symptoms of Alcohol Withdrawal: No Tobacco History: Patient Tobacco Use Status: Never used Tobacco Smoked in Last 30 Days: No Substance Use History: Currently Displaying Signs/Symptoms of Drug Intoxication Withdrawal: No Any prior treatment program specific to substance use: Yes Any prior treatment program specific to substance use comment: pt currently taking methadone Domestic Abuse History: Have you been hit, kicked, punched, or otherwise hurt by someone within the past year? If so, by whom?: No Do you feel safe in your current relationship?: No Current Relationship Is there a partner from a previous relationship who is making you feel unsafe now?: No Are you made to feel afraid or neglected: No Advance Directives: Advance Directives: No Advance Directives Information Provided: No Homicidal Assessment: Do you have a plan to hurt others: No Plan Nutrition Assessment: Recently lost weight without trying: No How much weight loss: Not applicable Eating poorly because of decreased appetite: No Nutrition screen score: 0 Nutrition Risks: No Nutritional Risk Poor oral hygiene: No Occupation Assessmet: service: No Home Medications and Allergies Current Medications: Current Medications Acetaminophen (Acetaminophen 325 Mg Tablet) 650 mg PO Q6H PRN PRN Reason: Pain, Mild 1-3,fever,headache Calcium Carbonate (Calcium Carbonate 750 Mg Tab.Chew) 750 mg PO Q4H PRN PRN Reason: Heartburn Heparin Sodium (Porcine) (Heparin Sodium,Porcine 5,000 Unit/Ml Vial) 5,000 unit SUBCUT Q8H [facility] Last Admin: 05/16/25 05:54 Dose: 5,000 unit Lactated Ringer's (Lr) 1,000 mls @ 80 mls/hr IVCONT .[id number] [facility] Last Admin: 05/16/25 00:33 Dose: 80 mls/hr Magnesium Hydroxide (Milk Of Magnesia 30 Ml Oral.Susp) 30 ml PO DAILY PRN PRN Reason: Constipation Melatonin (Melatonin 3 Mg Tablet) 6 mg PO BEDTIME PRN PRN Reason: Insomnia Methadone HCl (Methadone Hcl 20 Mg/2 Ml Oral.Conc) 99 mg PO DAILY [facility] Last Admin: 05/16/25 11:01 Dose: 99 mg Ondansetron HCl (Ondansetron Hcl 4 Mg/2 Ml Vial) 4 mg IVPUSH Q8H PRN PRN Reason: Nausea and Vomiting Oxycodone HCl (Oxycodone Hcl Immed Release 5 Mg Tablet) 5 mg PO Q6H PRN PRN Reason: Pain, Severe (Pain Scale 7-10) Sodium Chloride (0.9 % Sodium Chloride Flush 3 Ml Syringe) 3 ml IVFLUSH QSHIFT [facility] Last Admin: 05/16/25 08:44 Dose: Not Given Home Medications ?Medication ?Instructions ?Recorded ?Confirmed ?Type methadone 10 mg/mL oral concentrate 99 mg PO DAILY 01/26/21 05/16/25 History omeprazole 20 mg capsule,delayed 20 mg PO DAILY@0630 PRN Acid Reflux 08/03/23 05/16/25 History release Allergies Allergy/AdvReac Type Severity Reaction Status Date / Time amoxicillin (AMOXICILLIN) Allergy Unknown RASH Verified 05/15/25 15:34 From FLEXERIL Allergy Unknown STOMACH Uncoded 01/31/24 15:21 UPSET Physical Exam Vital signs: Vital Signs Temp 98.3 F 05/16/25 07:31 Pulse 56 05/16/25 07:31 Resp 14 05/16/25 07:31 BP 121/67 05/16/25 07:31 Pulse Ox 93 05/16/25 07:31 O2 Del Method Room Air 05/16/25 07:31 Intake & Output 05/15/25 05/16/25 05/16/25 18:59 06:59 18:59 Intake Total 1000 / 1000 400 / 400 Output Total 0 / 0 Balance 1000 / 1000 400 / 400 Urine Output (Average ml/kg/hr) 0.00 0.00 Intake: Intake, Oral Amount 400 / 400 Intake, IV Amount 1000 / 1000 0.9 % Sodium Chloride 1,000 ml 1000 / 1000 @ 999 mls/hr IV .Q1H1M [facility] Rx#: [id number] Output: Output, Urine Amount 0 / 0 Other: NPO Yes Lunch % Eaten 100% Eating (Feeding) Ability Independent Number of Unmeasured Voids 2 Number of Bowel Movements 0 Urine Bathroom Last Bowel Movement 05/14/25 05/14/25 Weight 113.398 kg 114 kg Weight 114 kg - Constitutional Present: no acute distress, obese - Routine HEENT Exam Head: Present: normal inspection Eye: Present: EOMI, PERRL, scleral icterus - Routine Neck Exam Present: supple. Absent: lymphadenopathy - Routine Respiratory Exam Present: CTAB. Absent: accessory muscle use - Routine Cardiovascular Exam Cardiovascular: Present: S1, S2 - Routine Abdominal Exam Present: soft - Routine Extremities Exam Present: normal inspection - Routine Skin Exam Present: intact, jaundice - Routine Neurological Exam Present: alert, oriented X3 Hem/Onc Consult Result - Labs CBC & Chem 7: 05/18/25 05:54 05/18/25 05:54 Labs: Short CBC 05/15/25 05/16/25 Range/Units 16:07 05:28 WBC 3.1 L 2.7 L (4.8-10.8) X10*3/uL Hgb 13.2 L 11.9 L (14.0-18.0) g/dl Hct 39.2 L 36.1 L (42.0-52.0) % Plt Count 211 200 (160-400) X10*3/uL BMP 05/15/25 05/16/25 16:07 05:28 Sodium 137 137 Potassium 4.2 4.7 Chloride 101 102 Carbon Dioxide 27 29 BUN 11 9 Creatinine 0.82 0.91 Calcium 9.3 8.7 D Cardiac Enzymes 05/15/25 Range/Units 16:07 Total Creatine Kinase 29 L (38-174) U/L Liver Function 05/15/25 05/16/25 Range/Units 16:07 05:28 Total Bilirubin 11.2 H 9.1 H (0.0-1.0) mg/dL Direct Bilirubin 8.1 H (0.0-0.5) mg/dL AST 147 H 129 H (5-37) U/L ALT 94 H 80 H (0-40) U/L Alkaline Phosphatase 297 H 241 H (39-117) U/L Albumin 3.6 3.1 L (3.5-5.0) g/dL Urine 05/15/25 Range/Units 20:16 Urine Color Dark Yellow Urine Appearance Clear Urine pH 6.5 (5.0-9.0) Ur Specific [place] >= 1.030 H (1.005-1.025) Urine Protein 30 (1+) H (Neg-Trace) mg/dL Urine Glucose (UA) Negative (Negative) mg/dL Assessment and Plan Patient Active problem list reviewed?: Yes (1) Hepatosplenomegaly Status: Chronic Assessment and plan: 1. This is a 39-year-old male with past medical history significant for hepatitis-C, never received treatment with undetectable viral load in September 2024 presenting with sudden onset of jaundice. His bilirubin was over 11, mostly direct hyperbilirubinemia with elevated AST/ALT levels. CT abdomen/pelvis shows hepatosplenomegaly that has been progressing since 2022. There was no intrahepatic or extrahepatic biliary ductal dilatation. No lymphadenopathy in the abdomen or pelvis. LDH is not elevated. Workup underway for viral mediated and drug-induced liver injury as per GI. Low suspicion for lymphoma/malignancy at this time. Thank you will follow. - Time Spent With Patient Time Spent with Patient (in minutes): 20
[2025-05-16 15:35] VITALS: BP 136/86; PULSE 73; RESP 19; TEMP 36.5; O2SAT 94
[2025-05-16 19:28] VITALS: BP 126/75; PULSE 76; RESP 20; TEMP 36.5; O2SAT 94
[2025-05-17] MEDS: Lactated Ringers 1,000 ML 80 ML IVCONT ×2 (02:57→14:14)
[2025-05-17 03:14] VITALS: BP 111/62; PULSE 63; RESP 18; TEMP 36.4; O2SAT 94
[2025-05-17 06:51] LABS: Hematocrit 35.9 % (42.0-52.0); Hemoglobin 11.6 g/dl (14.0-18.0); Imm Gran Abs Auto 0.01 X10*3/uL (0.00-0.03); Imm Gran Pct Auto 0.4 % (0.0-0.4); Lymphocytes Absolute Auto 1.1 X10*3/uL (1.2-4.9); MANUAL DIFF FLAG SCAN; Mean Corpuscular HGB Conc 32.3 g/dl (31.0-36.0); Mean Corpuscular Hemoglobin 26.4 pg (27.0-33.0); Mean Corpuscular Volume 81.8 fL (80.0-98.0); NRBC Abs Auto 0.020 X10*3/uL (0.0-0.012); NRBC Pct Auto 0.8 /100WBC (0.0-0.2); Platelet Count 198 X10*3/uL (160-400); Red Blood Count 4.39 X10*6/uL (4.60-5.80); SCAN SMEAR FLAG 1
[2025-05-17 06:53] LABS: White Blood Count 2.4 X10*3/uL (4.8-10.8)
[2025-05-17 07:12] LABS: Alanine Aminotransferase 75 U/L (0-40); Albumin Level 2.9 g/dL (3.5-5.0); Alkaline Phosphatase 260 U/L (39-117); Anion Gap 10 (12-20); Aspartate Amino Transferase 119 U/L (5-37); Blood Urea Nitrogen 10 mg/dL (9-16); Calcium 8.9 mg/dL (8.4-10.2); Carbon Dioxide 29 mmol/L (22-29); Chloride 101 mmol/L (96-108); Creatinine Clr Calc Pharmacy 141.2; Estimated Glomerular Filt Rate > 60; Potassium 4.0 mmol/L (3.3-5.1); Sodium 136 mmol/L (135-145); Total Protein 7.2 g/dL (6.5-8.0)
[2025-05-17 07:52] VITALS: BP 117/67; PULSE 65; RESP 18; TEMP 36.4; O2SAT 95
[2025-05-17] MEDS: methADONE HCl 20 MG/2 ML ORAL.CONC 99 MG PO (08:13)
--- NOTE | 2025-05-17 10:12 | P.PNIM_ITS ---
Subjective Subjective Date of Service: 05/17/25 Interval History: f/u on jaundice in patient with hep C, chronic liver disease denies alcohol use but used drugs 3 weeks agoa, Hep C is reactive, viral load pending Tbili is trending down. No pain, INR has been 1 x 2 days Physical Exam 2 Vital Signs: Vital Signs: Last Vital Signs Temp 97.6 F 05/17/25 07:52 Pulse 65 05/17/25 07:52 Resp 18 05/17/25 07:52 BP 117/67 05/17/25 07:52 Pulse Ox 95 05/17/25 07:52 O2 Del Method Room Air 05/17/25 07:52 BMI result Body Mass Index 36.1 Const: Other: General: AO X 3, no acute distress Resp: CTA bilateral HEENT: sclera icteris CVS: S1,S2,RRR GI: +BS, NT, no distention Skin: No rash Neuro: motor grossly intact Psych: appropriate affect Objective Data Active Medications Acetaminophen (Acetaminophen 325 Mg Tablet) 650 mg PO Q6H PRN PRN Reason: Pain, Mild 1-3,fever,headache Calcium Carbonate (Calcium Carbonate 750 Mg Tab.Chew) 750 mg PO Q4H PRN PRN Reason: Heartburn Heparin Sodium (Porcine) (Heparin Sodium,Porcine 5,000 Unit/Ml Vial) 5,000 unit SUBCUT Q8H [facility] Last Admin: 05/17/25 06:03 Dose: 5,000 unit Documented By: BECKY Lactated Ringer's (Lr) 1,000 mls @ 80 mls/hr IVCONT .[id number] [facility] Last Admin: 05/17/25 02:57 Dose: 80 mls/hr Documented By: BECKY Magnesium Hydroxide (Milk Of Magnesia 30 Ml Oral.Susp) 30 ml PO DAILY PRN PRN Reason: Constipation Melatonin (Melatonin 3 Mg Tablet) 6 mg PO BEDTIME PRN PRN Reason: Insomnia Methadone HCl (Methadone Hcl 20 Mg/2 Ml Oral.Conc) 99 mg PO DAILY [facility] Last Admin: 05/17/25 08:13 Dose: 99 mg Documented By: DRAIEN Co-signed By: LON Ondansetron HCl (Ondansetron Hcl 4 Mg/2 Ml Vial) 4 mg IVPUSH Q8H PRN PRN Reason: Nausea and Vomiting Oxycodone HCl (Oxycodone Hcl Immed Release 5 Mg Tablet) 5 mg PO Q6H PRN PRN Reason: Pain, Severe (Pain Scale 7-10) Sodium Chloride (0.9 % Sodium Chloride Flush 3 Ml Syringe) 3 ml IVFLUSH QSHIFT [facility] Last Admin: 05/17/25 07:21 Dose: Not Given Documented By: DARIEN Non-Admin Reason: IV Running Labs 05/17/25 05:59 05/17/25 05:59 Labs: Laboratory Results - last 24 hr 05/15/25 05/16/25 05/17/25 22:08 05:28 05:59 MCV 81.8 MCH 26.4 L MCHC 32.3 RDW 14.8 Plt Count 198 MPV 9.2 L Immature Gran % (Auto) 0.4 Neut % (Auto) 37.9 L Lymph % (Auto) 44.4 H [place] % (Auto) 14.0 H Eos % (Auto) 2.9 Baso % (Auto) 0.4 Lymph # (Auto) 1.1 L [place] # (Auto) 0.3 Eos # (Auto) 0.1 Baso # (Auto) 0.0 Abs Immat Gran (auto) 0.01 Absolute Neuts (auto) 0.9 L Absolute Nucleated RBC 0.020 H Nucleated RBC % (auto) 0.8 H Smear Tech's Comments VERIFIED Anion Gap 10 L Estim Creat Clear Calc 141.2 Estimated GFR > 60 Random Glucose 80 Calcium 8.9 Total Bilirubin 8.8 H Direct Bilirubin 6.6 H AST 119 H ALT 75 H Alkaline Phosphatase 260 H Total Protein 7.2 Albumin 2.9 L Hep B Core Total Ab Nonreactive Ref Lab Test Result Cancelled Microbiology Microbiology Results: Microbiology 05/15/25 22:08 Blood Culture - Preliminary Blood - Venous No growth after 24 hours. 05/15/25 22:08 Blood Culture - Preliminary Blood - Venous No growth after 24 hours. Assessment and Plan (1) Jaundice: Status: Acute (2) Hyperbilirubinemia: Status: Acute Plan Patient is a 39-year-old male with a past medical history significant for hepatitis-C, 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 Direct hyperbilirubinemia with jaundice likely from underlying hepatocellular disease, hep C reactive, viral load is pendign slightly down today abd US with hepatomegaly with steatosis, no evidence for cholecystitis hold areterial US Seen by GI with the following recommendations: pt with acute onset of jaundice x 2 weeks with progressive fatigue and loss of appetite. Ddx include acute hep, AIH, DILI. Pt does not report any etOH use but given AST:ALT ratio, and hepatic steatosis noted on imaging will check PETH. Obstructive jaundice less likely given imaging findings. Similarly portal vein thrombosis also less likely based on CT. Lack of coagulopathy and encephalopathy argues against impending liver failure. Plan: - Monitor INR and mental status daily - Daily MELD labs - Add on PETH - check HCV and HBV viral load given recent IVDU 3 weeks ago - Autoimmune hep serologies ordered - Ok for regular diet - If LFTs cont to uptrend and above w.up negative, will likely need a liver bx Dc home with outpatient f/u if labs continue to trend down hx IVDU on methadone Methadone dose verified class 2 obesity - BMI 35.9 - weight loss encouraged full code VTE prophy: heparin Patient is a 39-year-old male with hyperbilirubinemia and jaundice, requiring admission for at least 2 midnight stay for further evaluation, specialist consultations and monitoring. Quality Stroke Does the patient have a stroke diagnosis?: No VTE Prior VTE?: No VTE Risk Level:: Medical - moderate - high VTE Device Contraindication: Treatment Not Indicated VTE Drug Contraindication: N/A - Med Ordered
[2025-05-17 16:00] VITALS: BP 122/78; PULSE 66; RESP 16; TEMP 36; O2SAT 94
[2025-05-17 17:03] LABS: Hepatitis B Viral DNA Qn - cp NOT DETECTED Log IU/mL (NOT DETECTED); Hepatitis B Viral DNA Qn-IU/mL NOT DETECTED (NOT DETECTED)
[2025-05-17 19:21] VITALS: BP 132/74; PULSE 74; RESP 18; TEMP 36.4; O2SAT 94
[2025-05-18] MEDS: Lactated Ringers 1,000 ML 80 ML IVCONT (02:01)
[2025-05-18 03:20] VITALS: BP 127/67; PULSE 71; RESP 19; TEMP 36.4; O2SAT 96
[2025-05-18 06:32] LABS: Hematocrit 34.5 % (42.0-52.0); Hemoglobin 11.4 g/dl (14.0-18.0); Imm Gran Abs Auto 0.01 X10*3/uL (0.00-0.03); Imm Gran Pct Auto 0.4 % (0.0-0.4); Lymphocytes Absolute Auto 1.0 X10*3/uL (1.2-4.9); MANUAL DIFF FLAG SCAN; Mean Corpuscular HGB Conc 33.0 g/dl (31.0-36.0); Mean Corpuscular Hemoglobin 26.8 pg (27.0-33.0); Mean Corpuscular Volume 81.0 fL (80.0-98.0); NRBC Abs Auto 0.000 X10*3/uL (0.0-0.012); NRBC Pct Auto 0.0 /100WBC (0.0-0.2); Platelet Count 190 X10*3/uL (160-400); Red Blood Count 4.26 X10*6/uL (4.60-5.80); SCAN SMEAR FLAG 1
[2025-05-18 06:35] LABS: White Blood Count 2.4 X10*3/uL (4.8-10.8)
[2025-05-18 07:02] LABS: Alanine Aminotransferase 70 U/L (0-40); Albumin Level 2.9 g/dL (3.5-5.0); Alkaline Phosphatase 259 U/L (39-117); Anion Gap 13 (12-20); Aspartate Amino Transferase 119 U/L (5-37); Blood Urea Nitrogen 9 mg/dL (9-16); Calcium 8.7 mg/dL (8.4-10.2); Carbon Dioxide 26 mmol/L (22-29); Chloride 101 mmol/L (96-108); Creatinine Clr Calc Pharmacy 157.5; Estimated Glomerular Filt Rate > 60; Potassium 3.7 mmol/L (3.3-5.1); Sodium 136 mmol/L (135-145); Total Protein 7.1 g/dL (6.5-8.0)
[2025-05-18 07:55] VITALS: BP 117/74; PULSE 67; RESP 18; TEMP 36.4; O2SAT 92
[2025-05-18] MEDS: methADONE HCl 20 MG/2 ML ORAL.CONC 99 MG PO (08:41)
--- NOTE | 2025-05-18 09:35 | HO.PM.IMPN ---
Subjective Subjective Date of Service: 05/18/25 Interval History: f/u on jaundice in patient with hep C, chronic liver disease denies alcohol use but used drugs 3 weeks agoa, Hep C is reactive, viral load pending Tbili is trending up to 9 today. No pain, INR has been 1 x 2 days.. Physical Exam Vital Signs: Vital Signs: Last Vital Signs Temp 97.5 F 05/18/25 07:55 Pulse 67 05/18/25 07:55 Resp 18 05/18/25 07:55 BP 117/74 05/18/25 07:55 Pulse Ox 92 05/18/25 07:55 O2 Del Method Room Air 05/18/25 07:55 BMI result Body Mass Index 36.1 Const: Other: General: AO X 3, no acute distress Resp: CTA bilateral HEENT: sclera icteris CVS: S1,S2,RRR GI: +BS, NT, no distention Skin: No rash Neuro: motor grossly intact Psych: appropriate affect Objective Data Active Medications Acetaminophen (Acetaminophen 325 Mg Tablet) 650 mg PO Q6H PRN PRN Reason: Pain, Mild 1-3,fever,headache Calcium Carbonate (Calcium Carbonate 750 Mg Tab.Chew) 750 mg PO Q4H PRN PRN Reason: Heartburn Heparin Sodium (Porcine) (Heparin Sodium,Porcine 5,000 Unit/Ml Vial) 5,000 unit SUBCUT Q8H [facility] Last Admin: 05/18/25 06:11 Dose: 5,000 unit Documented By: BECKY Lactated Ringer's (Lr) 1,000 mls @ 80 mls/hr IVCONT .[id number] [facility] Last Admin: 05/18/25 02:01 Dose: 80 mls/hr Documented By: BECKY Magnesium Hydroxide (Milk Of Magnesia 30 Ml Oral.Susp) 30 ml PO DAILY PRN PRN Reason: Constipation Melatonin (Melatonin 3 Mg Tablet) 6 mg PO BEDTIME PRN PRN Reason: Insomnia Methadone HCl (Methadone Hcl 20 Mg/2 Ml Oral.Conc) 99 mg PO DAILY [facility] Last Admin: 05/18/25 08:41 Dose: 99 mg Documented By: DARIEN Co-signed By: ROBERT Ondansetron HCl (Ondansetron Hcl 4 Mg/2 Ml Vial) 4 mg IVPUSH Q8H PRN PRN Reason: Nausea and Vomiting Oxycodone HCl (Oxycodone Hcl Immed Release 5 Mg Tablet) 5 mg PO Q6H PRN PRN Reason: Pain, Severe (Pain Scale 7-10) Sodium Chloride (0.9 % Sodium Chloride Flush 3 Ml Syringe) 3 ml IVFLUSH QSHIFT [facility] Last Admin: 05/18/25 07:28 Dose: Not Given Documented By: DARIEN Non-Admin Reason: IV Running Labs 05/18/25 05:54 05/18/25 05:54 Labs: Laboratory Results - last 24 hr 05/16/25 05/18/25 16:33 05:54 MCV 81.0 MCH 26.8 L MCHC 33.0 RDW 14.6 Plt Count 190 MPV 9.1 L Immature Gran % (Auto) 0.4 Neut % (Auto) 42.1 L Lymph % (Auto) 41.5 H [place] % (Auto) 12.7 H Eos % (Auto) 2.5 Baso % (Auto) 0.8 Lymph # (Auto) 1.0 L [place] # (Auto) 0.3 Eos # (Auto) 0.1 Baso # (Auto) 0.0 Abs Immat Gran (auto) 0.01 Absolute Neuts (auto) 1.0 L Absolute Nucleated RBC 0.000 Nucleated RBC % (auto) 0.0 Smear Tech's Comments VERIFIED Anion Gap 13 Estim Creat Clear Calc 157.5 Estimated GFR > 60 Random Glucose 90 Calcium 8.7 Total Bilirubin 9.3 H Direct Bilirubin 6.9 H AST 119 H ALT 70 H Alkaline Phosphatase 259 H Total Protein 7.1 Albumin 2.9 L Hep B DNA copies/mL NOT DETECTED Hep B DNA (IU/mL) NOT DETECTED Microbiology Microbiology Results: Microbiology 05/15/25 22:08 Blood Culture - Preliminary Blood - Venous No growth after 48 hours. 05/15/25 22:08 Blood Culture - Preliminary Blood - Venous No growth after 48 hours. Assessment and Plan (1) Jaundice: Status: Acute (2) Hyperbilirubinemia: Status: Acute Plan Patient is a 39-year-old male with a past medical history significant for hepatitis-C, 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 Direct hyperbilirubinemia with jaundice likely from underlying hepatocellular disease, hep C reactive, viral load is pendign slightly down today abd US with hepatomegaly with steatosis, no evidence for cholecystitis hold areterial US Seen by GI with the following recommendations: pt with acute onset of jaundice x 2 weeks with progressive fatigue and loss of appetite. Ddx include acute hep, AIH, DILI. Pt does not report any etOH use but given AST:ALT ratio, and hepatic steatosis noted on imaging will check PETH. Obstructive jaundice less likely given imaging findings. Similarly portal vein thrombosis also less likely based on CT. Lack of coagulopathy and encephalopathy argues against impending liver failure. Plan: - Monitor INR and mental status daily - Daily MELD labs - Add on PETH - check HCV and HBV viral load given recent IVDU 3 weeks ago - Autoimmune hep serologies ordered - Ok for regular diet - If LFTs cont to uptrend and above w.up negative, will likely need a liver bx -check INR today, and discuss with GI Dc home with outpatient f/u if labs continue to trend down hx IVDU on methadone Methadone dose verified class 2 obesity - BMI 35.9 - weight loss encouraged full code VTE prophy: heparin Patient is a 39-year-old male with hyperbilirubinemia and jaundice, requiring admission for at least 2 midnight stay for further evaluation, specialist consultations and monitoring. Quality Stroke Does the patient have a stroke diagnosis?: No VTE Prior VTE?: No VTE Risk Level:: Medical - moderate - high VTE Device Contraindication: Treatment Not Indicated VTE Drug Contraindication: N/A - Med Ordered
[2025-05-18 10:11] LABS: INTERNATIONAL NORM RATIO 0.9 (0.9-1.1); Prothrombin Time 10.8 SEC (10.9-12.4)
[2025-05-18] MEDS: 0.9 % Sodium Chloride Flush 3 ML SYRINGE IVFLUSH ×2 (15:11→22:03)
[2025-05-18 15:23] LABS: HCV Log PCR <1.18 NOT DETECTED Log IU/mL (NOT DETECTED); HepC Viral Load <15 NOT DETECTED IU/mL (NOT DETECTED)
[2025-05-18 15:30] VITALS: BP 116/72; PULSE 69; RESP 16; TEMP 36.1; O2SAT 94
[2025-05-18] MEDS: Milk of Magnesia 30 ML ORAL.SUSP PO (19:14)
[2025-05-18 20:00] VITALS: BP 113/70; PULSE 76; RESP 18; TEMP 36.5; O2SAT 95
[2025-05-19 03:15] VITALS: BP 136/83; PULSE 66; RESP 16; TEMP 36; O2SAT 93
[2025-05-19 07:21] VITALS: BP 124/77; PULSE 70; RESP 16; TEMP 36.3; O2SAT 94
[2025-05-19 08:44] LABS: Hematocrit 38.8 % (42.0-52.0); Hemoglobin 12.6 g/dl (14.0-18.0); Mean Corpuscular HGB Conc 32.5 g/dl (31.0-36.0); Mean Corpuscular Hemoglobin 26.3 pg (27.0-33.0); Mean Corpuscular Volume 81.0 fL (80.0-98.0); NRBC Abs Auto 0.000 X10*3/uL (0.0-0.012); NRBC Pct Auto 0.0 /100WBC (0.0-0.2); Platelet Count 207 X10*3/uL (160-400); Red Blood Count 4.79 X10*6/uL (4.60-5.80); White Blood Count 2.6 X10*3/uL (4.8-10.8)
[2025-05-19 09:09] LABS: Alanine Aminotransferase 79 U/L (0-40); Albumin Level 3.3 g/dL (3.5-5.0); Alkaline Phosphatase 279 U/L (39-117); Aspartate Amino Transferase 132 U/L (5-37); Total Protein 7.8 g/dL (6.5-8.0)
[2025-05-19] MEDS: 0.9 % Sodium Chloride Flush 3 ML SYRINGE IVFLUSH ×2 (09:14→16:49)
[2025-05-19] MEDS: methADONE HCl 20 MG/2 ML ORAL.CONC 99 MG PO (09:51)
--- NOTE | 2025-05-19 09:56 | P.PNIM_ITS ---
Subjective Subjective Date of Service: 05/19/25 Interval History: f/u on jaundice in patient with hep C, chronic liver disease denies alcohol use but used drugs 3 weeks agoa, Hep C is reactive, viral load pending Tbili is trending up to 9 today. No pain, INR normal. Physical Exam 2 Vital Signs: Vital Signs: Last Vital Signs Temp 97.3 F 05/19/25 07:21 Pulse 70 05/19/25 07:21 Resp 16 05/19/25 07:21 BP 124/77 05/19/25 07:21 Pulse Ox 94 05/19/25 07:21 O2 Del Method Room Air 05/19/25 07:21 BMI result Body Mass Index 36.1 Const: Other: General: AO X 3, no acute distress Resp: CTA bilateral HEENT: sclera icteris CVS: S1,S2,RRR GI: +BS, NT, no distention Skin: No rash Neuro: motor grossly intact Psych: appropriate affect Objective Data Active Medications Acetaminophen (Acetaminophen 325 Mg Tablet) 650 mg PO Q6H PRN PRN Reason: Pain, Mild 1-3,fever,headache Calcium Carbonate (Calcium Carbonate 750 Mg Tab.Chew) 750 mg PO Q4H PRN PRN Reason: Heartburn Magnesium Hydroxide (Milk Of Magnesia 30 Ml Oral.Susp) 30 ml PO DAILY PRN PRN Reason: Constipation Last Admin: 05/18/25 19:14 Dose: 30 ml Documented By: ROXANNA Melatonin (Melatonin 3 Mg Tablet) 6 mg PO BEDTIME PRN PRN Reason: Insomnia Last Admin: 05/18/25 22:03 Dose: 6 mg Documented By: ROXANNA Methadone HCl (Methadone Hcl 20 Mg/2 Ml Oral.Conc) 99 mg PO DAILY [facility] Last Admin: 05/19/25 09:51 Dose: 99 mg Documented By: KAY Co-signed By: ASHLEY Ondansetron HCl (Ondansetron Hcl 4 Mg/2 Ml Vial) 4 mg IVPUSH Q8H PRN PRN Reason: Nausea and Vomiting Oxycodone HCl (Oxycodone Hcl Immed Release 5 Mg Tablet) 5 mg PO Q6H PRN PRN Reason: Pain, Severe (Pain Scale 7-10) Sodium Chloride (0.9 % Sodium Chloride Flush 3 Ml Syringe) [facility] Last Admin: 05/19/25 09:14 Dose: 3 ml Documented By: KAY Labs 05/19/25 08:22 05/18/25 05:54 Labs: Laboratory Results - last 24 hr 05/16/25 05/18/25 05/19/25 16:33 09:54 08:22 MCV 81.0 MCH 26.3 L MCHC 32.5 RDW 14.8 Plt Count 207 MPV 9.1 L Absolute Nucleated RBC 0.000 Nucleated RBC % (auto) 0.0 PT 10.8 L INR 0.9 Total Bilirubin 10.1 H Direct Bilirubin 7.4 H AST 132 H ALT 79 H Alkaline Phosphatase 279 H Total Protein 7.8 Albumin 3.3 L Hep C Viral Load <15 NOT DETECTED Hep C Viral Load Log <1.18 NOT DETECTED Microbiology Microbiology Results: Microbiology 05/15/25 22:08 Blood Culture - Preliminary Blood - Venous No growth after 48 hours. 05/15/25 22:08 Blood Culture - Preliminary Blood - Venous No growth after 48 hours. Assessment and Plan (1) Jaundice: Status: Acute (2) Hyperbilirubinemia: Status: Acute Plan Patient is a 39-year-old male with a past medical history significant for hepatitis-C--undetected viral load, IV drug use on methadone, and class 2 obesity, who presented to the ED due to nausea, decreased appetite and jaundice for the past 2 weeks and found to have Bili of 11 and elevated LFTs, Direct hyperbilirubinemia with jaundice likely from underlying hepatocellular disease, hep C reactive, undetectable viral load, non obstruction on CT or US. LFTs have remained essentially unchaged with Tbili stable around 10. abd US with hepatomegaly with steatosis, no evidence for cholecystasis, similar finding on CT Seen by GI with the following recommendations: pt with acute onset of jaundice x 2 weeks with progressive fatigue and loss of appetite. Ddx include acute hep, AIH, DILI. Pt does not report any etOH use but given AST:ALT ratio, and hepatic steatosis noted on imaging will check PETH. Obstructive jaundice less likely given imaging findings. Similarly portal vein thrombosis also less likely based on CT. Lack of coagulopathy and encephalopathy argues against impending liver failure. Plan: - Monitor INR and mental status daily - Daily MELD labs - Add on PETH - check HCV and HBV viral load given recent IVDU 3 weeks ago - Autoimmune hep serologies ordered - Ok for regular diet - If LFTs cont to uptrend and above w.up negative, will likely need a liver bx -check INR today, and discuss with GI Dc home with outpatient f/u if labs continue to trend down hx IVDU on methadone Methadone dose verified to be 99 mg daily class 2 obesity - BMI 35.9 - weight loss encouraged full code VTE prophy: heparin Will discuss with GI regarding next step Quality Stroke Does the patient have a stroke diagnosis?: No VTE Prior VTE?: No VTE Risk Level:: Medical - moderate - high VTE Device Contraindication: Treatment Not Indicated VTE Drug Contraindication: N/A - Med Ordered
--- NOTE | 2025-05-19 14:25 | P.PNGI_ITS ---
Subjective Subjective Date of Service: 05/19/25 Interval History: Patient seen and evaluated at bedside. Mother present as well. Reports no abdominal pain, nausea, vomiting. Energy levels are better. Labs reviewed, unchanged LFTs with hyperbilirubinemia. Critical Care Time (minutes): 0 Physical Exam 2 Exam: Exam: Grossly jaundice No acute distress Abdomen soft, nontender, nondistended Alert and oriented x3, no asterixis, no gait abnormalities Vital Signs: Vital Signs: Last Vital Signs Temp 96.9 F 05/20/25 07:49 Pulse 83 05/20/25 07:49 Resp 16 05/20/25 07:49 BP 131/70 05/20/25 07:49 Pulse Ox 94 05/20/25 07:49 O2 Del Method Room Air 05/20/25 07:49 BMI result Body Mass Index 36.1 Objective Data Labs 05/19/25 08:22 05/18/25 05:54 Labs: Laboratory Results - last 24 hr 05/17/25 05/19/25 05:59 08:22 WBC 2.6 L RBC 4.79 Hgb 12.6 L Hct 38.8 L MCV 81.0 MCH 26.3 L MCHC 32.5 RDW 14.8 Plt Count 207 MPV 9.1 L Absolute Nucleated RBC 0.000 Nucleated RBC % (auto) 0.0 Smear Path Review SEE NOTE Total Bilirubin 10.1 H Direct Bilirubin 7.4 H AST 132 H ALT 79 H Alkaline Phosphatase 279 H Total Protein 7.8 Albumin 3.3 L Microbiology Microbiology Results: Microbiology 05/15/25 22:08 Blood - Venous Blood Culture - Preliminary No growth after 48 hours. 05/15/25 22:08 Blood - Venous Blood Culture - Preliminary No growth after 48 hours. Procedures Date of Service Date of Service: 05/20/25 Progress Note: A&P Assessment and plan (1) Hyperbilirubinemia: Status: Acute (2) Jaundice: Status: Acute Plan Labs for infectious hepatitis negative. Autoimmune serologies pending. Other differentials include DILI. INR normal and no signs of HE on exam. Plan: - Trial of NAC x 24h - Liver bx - [facility] as outpatient for 05/21. - Would avoid empiric steroids until bx done - Regular diet Time Spent With Patient Time: Total time managing care of this patient today ____ minutes. Quality Stroke Does the patient have a stroke diagnosis?: No VTE Prior VTE?: No VTE Risk Level:: Medical - moderate - high VTE Device Contraindication: Treatment Not Indicated VTE Drug Contraindication: N/A - Med Ordered
[2025-05-19 15:19] VITALS: BP 105/63; PULSE 68; RESP 18; TEMP 36.4; O2SAT 93
--- NOTE | 2025-05-19 16:02 | MHC.CM.PN ---
PER MD ROUNDS, PT NOT MEDICALLY CLEARED, PLAN FOR GI CONSULT DCP: HOME VIA PRIVATE TRANSPORT
[2025-05-19] MEDS: Acetylcysteine 15,000 MG in Dextrose 5 % 200 ML 200 MG IV (16:49)
[2025-05-19] MEDS: Acetylcysteine 5,000 MG in Dextrose 5 % 500 ML 125 MG IV (18:07)
[2025-05-19 19:25] VITALS: BP 128/73; PULSE 78; RESP 18; TEMP 36.6; O2SAT 95
[2025-05-19] MEDS: Milk of Magnesia 30 ML ORAL.SUSP PO (21:16)
[2025-05-19] MEDS: Acetylcysteine 10,000 MG in Dextrose 5 % 1,000 ML 62.5 MG IV (22:50)
[2025-05-20 03:25] VITALS: BP 121/69; PULSE 75; RESP 16; TEMP 36.8; O2SAT 93
[2025-05-20 07:49] VITALS: BP 131/70; PULSE 83; RESP 16; TEMP 36.1; O2SAT 94
[2025-05-20] MEDS: methADONE HCl 20 MG/2 ML ORAL.CONC 99 MG PO (08:26)
[2025-05-20 08:48] LABS: Hematocrit 37.5 % (42.0-52.0); Hemoglobin 12.6 g/dl (14.0-18.0); Imm Gran Abs Auto 0.01 X10*3/uL (0.00-0.03); Imm Gran Pct Auto 0.4 % (0.0-0.4); Lymphocytes Absolute Auto 0.9 X10*3/uL (1.2-4.9); MANUAL DIFF FLAG SCAN; Mean Corpuscular HGB Conc 33.6 g/dl (31.0-36.0); Mean Corpuscular Hemoglobin 26.6 pg (27.0-33.0); Mean Corpuscular Volume 79.3 fL (80.0-98.0); NRBC Abs Auto 0.000 X10*3/uL (0.0-0.012); NRBC Pct Auto 0.0 /100WBC (0.0-0.2); Platelet Count 197 X10*3/uL (160-400); Red Blood Count 4.73 X10*6/uL (4.60-5.80); SCAN SMEAR FLAG 1
[2025-05-20 08:50] LABS: White Blood Count 2.4 X10*3/uL (4.8-10.8)
[2025-05-20 09:02] LABS: Alanine Aminotransferase 81 U/L (0-40); Albumin Level 3.2 g/dL (3.5-5.0); Alkaline Phosphatase 272 U/L (39-117); Anion Gap 12 (12-20); Aspartate Amino Transferase 117 U/L (5-37); Blood Urea Nitrogen 8 mg/dL (9-16); Calcium 9.0 mg/dL (8.4-10.2); Carbon Dioxide 27 mmol/L (22-29); Chloride 101 mmol/L (96-108); Creatinine Clr Calc Pharmacy 163.9; Estimated Glomerular Filt Rate > 60; Potassium 4.1 mmol/L (3.3-5.1); Sodium 136 mmol/L (135-145); Total Protein 7.7 g/dL (6.5-8.0)
[2025-05-20 14:49] LABS: Liver Kidney Microsomal Ab <=20.0 U (<=20.0)
[2025-05-20 15:17] VITALS: BP 112/75; PULSE 78; RESP 20; TEMP 36.1; O2SAT 94
--- NOTE | 2025-05-20 15:42 | PM.DS ---
DS: Providers Provider Date of Service: 05/20/25 Date of admission: 05/15/25 22:30 Date of discharge: 05/20/25 Primary care physician: [facility] Consults: 05/15/25 22:32 Consult to Gastroenterology Routine Consulting Provider: María Coombs Reason for consultation: hyperbilirubinemia, jaundice Has provider been notified: Yes Consult to Hematology / Oncology Routine Consulting Provider: Ashley Mcakay Reason for consultation: hyperbilirubinemia, CT with enlarged node paraesophagus Has provider been notified: No DS: Diagnosis Discharge Diagnosis (1) Hyperbilirubinemia: Status: Acute (2) Jaundice: Status: Acute DS: Summary Hospital Course Hospital Course: Patient is a 39-year-old male with a past medical history significant for hepatitis-C, 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 He denies any abdominal pain, vomiting or diarrhea. No recent illness, sore throat, headache, cough. he reports urinary frequency and dark urine. no heartburn or GERD. he has a hx of hep c but states there was no treatment as his viral load was undetectable and he was told to drink a lot of water . he does not consume etoh and states that he only uses methadone, no longer IVDU. Painless Jaundice & hyperbilirubinemia - AST 147, ALT 94, alk phos 297, t bili 11.2, d bili 8.1 - WBC 3.1, vitals stable, no infection identified, blood cultures x2 pending, lactic acid normal - hbg 13.2/hct 39.2, MCV 79.5 - CPK 29 - ammonia normal - abd US with hepatomegaly with steatosis, no evidence for cholecystitis - abdominopelvic CT with right lower pole kidney stones, hepatosplenomegaly with hepatic steatosis. Diffuse esophageal mural thickening. Posterior paraesophageal node measuring 1 cm, may be reactive however is nonspecific. - INR normal - mono negative - UA negative Direct hyperbilirubinemia with jaundice likely from underlying hepatocellular disease, hep C reactive, viral load is pendign slightly down today abd US with hepatomegaly with steatosis, no evidence for cholecystitis hold areterial US Seen by GI with the following recommendations: pt with acute onset of jaundice x 2 weeks with progressive fatigue and loss of appetite. Ddx include acute hep, AIH, DILI. Pt does not report any etOH use but given AST:ALT ratio, and hepatic steatosis noted on imaging will check PETH. Obstructive jaundice less likely given imaging findings. Similarly portal vein thrombosis also less likely based on CT. Lack of coagulopathy and encephalopathy argues against impending liver failure. Patient was seen and evaluated by GI. Received x2 NAC with some improvement in LFTs. Remains jaundiced. Further evaluation with IR guided liver biopsy to be conducted as outpatient tomorrow 05/21. The patient is agreeable to be discharged home and FU as outpatient for biopsy - shared decision making. Status at Discharge Functional status at discharge: independent ambulation Overall status at discharge: patient is back to baseline Time Attestation Total time managing care of this patient today: 35 mintues. Discharge Coordination Time (in mins): 45 Quality: Safe Use of Opioids Does Pt have an Active Cancer Diagnosis on the Problem List?: No Quality: Stroke Does the patient have a stroke diagnosis?: No Physical Exam Exam: Exam: General: AO X 3, no acute distress Resp: CTA bilaterally HEENT: sclera icteris CVS: S1,S2,RRR GI: +BS, NT, no distention Skin: No rash Neuro: motor grossly intact Psych: appropriate affect Vital Signs: Vital Signs: Last Vital Signs Temp 97.0 F 05/20/25 15:17 Pulse 78 05/20/25 15:17 Resp 20 05/20/25 15:17 BP 112/75 05/20/25 15:17 Pulse Ox 94 05/20/25 15:17 O2 Del Method Room Air 05/20/25 15:17 BMI result Body Mass Index 36.1 DS: Data Data Completed and Pending Labs on day of discharge: Laboratory Results - last 24 hr 05/16/25 05/20/25 16:33 08:36 WBC 2.4 L RBC 4.73 Hgb 12.6 L Hct 37.5 L MCV 79.3 L MCH 26.6 L MCHC 33.6 RDW 14.8 Plt Count 197 MPV 8.6 L Immature Gran % (Auto) 0.4 Neut % (Auto) 51.2 Lymph % (Auto) 36.3 [place] % (Auto) 10.0 Eos % (Auto) 1.7 Baso % (Auto) 0.4 Lymph # (Auto) 0.9 L [place] # (Auto) 0.2 Eos # (Auto) 0.0 Baso # (Auto) 0.0 Abs Immat Gran (auto) 0.01 Absolute Neuts (auto) 1.2 L Absolute Nucleated RBC 0.000 Nucleated RBC % (auto) 0.0 Smear Tech's Comments VERIFIED Sodium 136 Potassium 4.1 Chloride 101 Carbon Dioxide 27 Anion Gap 12 BUN 8 L Creatinine 0.75 Estim Creat Clear Calc 163.9 Estimated GFR > 60 Random Glucose 113 Calcium 9.0 Total Bilirubin 10.3 H AST 117 H ALT 81 H Alkaline Phosphatase 272 H Total Protein 7.7 Albumin 3.2 L Anti-Mitochondrial Ab NEGATIVE Jayda/Kid Microsom Ab Int <=20.0 Preliminary micro results at discharge 05/15/25 22:08 Blood Culture - Preliminary Blood - Venous No growth after 48 hours. 05/15/25 22:08 Blood Culture - Preliminary Blood - Venous No growth after 48 hours. Discharge Plan Discharge Anticipated Discharge Date/Time: 05/20/25 15:46 Patient Disposition: Home, Self-Care Discharge Diagnosis: Transaminitis with Painless Jaundice, direct hyperbilirubinemia Referrals: [facility] [Primary Care Provider, Medical] - 1 Week Discharge Medications: Continued methadone 10 mg/mL concentrate 99 mg PO DAILY Rx Instructions: Sonia Moore [phone] omeprazole 20 mg capsule,delayed release(DR/EC) 20 mg PO DAILY@0630 PRN (Reason: Acid Reflux) Discharge Orders: Discharge Order (Routine); Ordered 05/20/25 Ordered By: Johnny Schmidt Diet: Advance to usual diet Activity on Discharge: As tolerated Stand Alone Forms: Patient Portal Discharge page Print Language: Ukrainian Care Plan Goals: FU outpatient gastroenterology FU PCP within 1 week of discharge Planned IR guided liver biopsy in outpatient setting planned 05/21 at 12:00pm. Health Concerns: As above Plan of Treatment: FU outpatient gastroenterology FU PCP within 1 week of discharge Planned IR guided liver biopsy in outpatient setting planned 05/21 at 12:00pm. Assessment: Haemodynamically stable with plateaued LFTs. No evidence of hepatic decompensation. No evidence of obstructive jaundice.
[2025-05-20] MEDS: 0.9 % Sodium Chloride Flush 3 ML SYRINGE IVFLUSH (15:45)
--- NOTE | 2025-05-20 16:11 | MHC.CM.PN ---
Patient medically cleared for dc home self care via private transport.
[2025-05-20 21:22] LABS: Anti Nuclear Antibody Screen NEGATIVE (NEGATIVE)
[2025-05-20 22:59] LABS: HCV Log PCR <1.18 NOT DETECTED Log IU/mL (NOT DETECTED); HepC Viral Load <15 NOT DETECTED IU/mL (NOT DETECTED)
[2025-05-23 07:57] LABS: Phosphatidylethanol 16:0-18:1 NEGATIVE
[2025-05-23 07:58] LABS: Phosphatidylethanol 16:0-18:2 NEGATIVE
== END 2025-05-20 16:29 | disposition home or self-care (01) ==
LOC: HO.ED 22:26 → HO.EDOVER 22:57 → HO.S3 05-16 00:58
PROVIDERS: Internal Medicine; Physician Assistant; Physician Assistant Medical; Admitting Provider Physician Assistant; Emergency Provider Student in an Organized Health Care Education/Training Program; Visit Provider Hospitalist
DX: B19.20 Unspecified viral hepatitis C without hepatic coma (principal); K76.0 Fatty (change of) liver, not elsewhere classified; E66.812 Obesity, class 2; F11.20 Opioid dependence, uncomplicated; Z71.3 Dietary counseling and surveillance; Z68.36 Body mass index [BMI] 36.0-36.9, adult; Z79.899 Other long term (current) drug therapy
CPT/HCPCS: 36415; 74177; 76705; 80048; 80053; 80076; 80143; 80307; 80321; 81001; 82140; 82550; 82728; 83540; 83605; 83615; 83690; 83735; 85025; 85027; 85610; 86015; 86038; 86308; 86376; 86381; 86704; 86706; 86709; 86803; 87040; 87340; 87517; 87522; 93005; 99285; J0132; J1644; J2405; J7120; Q9967

== ENCOUNTER → 2025-05-15 16:47 | Outpatient (BNV) | payer MEDICAID, SELFPAY | PROVIDERS: Visit Provider Radiology Diagnostic Radiology | DX: R16.2 Hepatomegaly with splenomegaly, not elsewhere classified (principal); K76.0 Fatty (change of) liver, not elsewhere classified | CPT/HCPCS: 74177; 76705 ==

== ENCOUNTER 2025-05-15 22:30 | Outpatient (BNV) | payer MEDICAID, SELFPAY | END 2025-05-15 23:08 | PROVIDERS: Admitting Provider Physician Assistant; Emergency Provider Student in an Organized Health Care Education/Training Program; Visit Provider Internal Medicine Cardiovascular Disease | DX: I45.10 Unspecified right bundle-branch block (principal) | CPT/HCPCS: 93010 ==

== ENCOUNTER → 2025-05-15 22:30 | Outpatient (BNV) | payer MEDICAID, SELFPAY | PROVIDERS: Admitting Provider Physician Assistant; Emergency Provider Student in an Organized Health Care Education/Training Program; Visit Provider Internal Medicine | DX: R16.2 Hepatomegaly with splenomegaly, not elsewhere classified (principal) | CPT/HCPCS: 99222 ==

== ENCOUNTER → 2025-05-15 22:30 | Outpatient (BNV) | payer MEDICAID, SELFPAY | PROVIDERS: Admitting Provider Physician Assistant; Emergency Provider Student in an Organized Health Care Education/Training Program; Visit Provider Internal Medicine | DX: R17 Unspecified jaundice (principal); E80.6 Other disorders of bilirubin metabolism | CPT/HCPCS: 99223; 99232 ==

== ENCOUNTER → 2025-05-15 22:30 | Outpatient (BNV) | payer MEDICAID, SELFPAY | PROVIDERS: Admitting Provider Physician Assistant; Emergency Provider Student in an Organized Health Care Education/Training Program; Visit Provider Internal Medicine | DX: R17 Unspecified jaundice (principal); R16.2 Hepatomegaly with splenomegaly, not elsewhere classified | CPT/HCPCS: 99223 ==

== ENCOUNTER 2025-05-21 12:33 | Day surgery (SDC) | payer MEDICAID, SELFPAY ==
--- OUTSIDE RECORDS SUMMARY | 2025-05-19 17:24 | XMS_ITS | Encounter Summary ---
Author Organization [facility] Address [address] [place] [address] [address] [place] [address] Care Team Providers Care Records Management Clerk Name Role Phone Berenice Yoder NP Primary Care Provider [phone] Reason for Visit * Reason Comments Med Refill Encounter Details Date Type Department Care Team (Late Contact Info) Description 06/29/2023 Refill [facility] MEDICINE [address] [place] [address] Shell Piper, HEAD USHER Pain Social History Tobacco Use Types Packs/Day [...] Description 06/25/2025 2:15 PM EDT Office Visit [facility] ADULT DENTAL [address] [place] [address] Vivien, Carmencita [address] [place] [address] documented as of this encounter Visit Diagnoses Diagnosis Pain Generalized pain documented in this encounter Care Teams Records Management Clerk Relationship Specialty Start Date End Date Berenice Yoder NP [address] [place] [address] PCP - General Family Medicine 06/13/23 documented as of this encounter
--- OUTSIDE RECORDS SUMMARY | 2025-05-19 17:24 | XMS_ITS | Encounter Summary ---
Author Organization [employer] Address [address] [facility] [address] [place] [address] Care Team Providers Care Pie Maker Machine Name Role Phone Berenice Yoder NP Primary Care Provider [phone] Reason for Visit * Reason Comments Med Refill Encounter Details Date Type Department Care Team (Late st Contact Info) Description 09/27/2023 Refill [facility] MEDICINE [address] [place] [id number] Name, MD Dennis [address] [place] [id number] Gastroesophageal reflux disease without esophagitis Social History [...] Description 06/25/2025 2:15 PM EDT Office Visit [facility] ADULT DENTAL [address] [place] [address] Carmencita Puga [address] [place], [place] [phone] documented as of this encounter Visit Diagnoses Diagnosis Gastroesophageal reflux disease without esophagitis Esophageal reflux documented in this encounter Care Teams Pie Maker Machine Relationship Specialty Start Date End Date Berenice Yoder NP [address] [place] [address] PCP - General Family Medicine 06/13/23 documented as of this encounter
--- OUTSIDE RECORDS SUMMARY | 2025-05-19 17:24 | XMS_ITS | Encounter Summary ---
Author Organization [employer] Address [address] [facility] [address] [place] [address] Care Team Providers Care Harbor Pilot Name Role Phone Berenice Yoder NP Primary Care Provider [phone] Reason for Visit * Reason Onset Date Comments Appointment Request 09/08/2023 Encounter Details Date Type Department Care Team (Late st Contact Info) Description 09/08/2023 Telephone [facility] MEDICINE [address] [place] [address] Berenice Yoder NP [address] [place] [address] Appointment Request Social History Tobacco Use Types [...] Description 06/25/2025 2:15 PM EDT Office Visit [facility] ADULT DENTAL [address] [place] [address] Carmencita Puga [address] [place] [address] documented as of this encounter Visit Diagnoses Not on filedocumented in this encounter Care Teams Harbor Pilot Relationship Specialty Start Date End Date Berenice Yoder NP [address] [place] [address] PCP - General Family Medicine 06/13/23 documented as of this encounter
--- OUTSIDE RECORDS SUMMARY | 2025-05-19 17:24 | XMS_ITS | Clinical Summary ---
Author Organization [employer] Address [address] [place] [address] Care Team Providers Care Soldering Machine Tender Name Role Phone Beba Berenice TOMLINSON Primary Care Provider [phone] Allergies Active Allergy Reactions Criticality Noted Date [...] Data 05/01/2025 3:00 PM EDT Office Visit [facility] ADULT [facility]ENTAL [address] [place] [address] René Alas DMD 04/24/2025 Travel 03/26/2025 3:00 PM EDT Office Visit [facility] ADULT [facility] [address] [place] [address] René Alas DMD 02/23/2025 Refill [facility] MEDICINE [address] [place] [address] Berenice Yoder NP Pain from Last 3 [...] Description 06/25/2025 2:15 PM EDT Office Visit [facility] [address] [place] [address] Adarsh Pugaaris [address] [place] [address] Health Maintenance Due Date Last Done Comments [...] Procedure Name Priority Date/Time Associated Diagnosis Comments PROTHROMBIN TIME-INR Routine 05/15/2025 10:08 PM EDT ETHANOL Routine 05/15/2025 10:08 PM EDT LACTIC ACID Routine 05/15/2025 10:[address] ABDOMEN PELVIS W CONTRAST Routine 05/15/2025 8:33 PM EDT URINALYSIS, COMPLETE, WITH REFLEX TO CULTURE Routine 05/15/2025 8:16 PM EDT URINALYSIS WITH REFLEX MICROSCOPIC Routine 05/15/2025 8:16 PM EDT AMMONIA (P) Routine 05/15/2025 7:24 PM EDT MONONUCLEOSIS TEST, QUALITATIVE Routine 05/15/2025 7:15 PM EDT US ABDOMEN LIMITED Routine 05/15/2025 6: 09 PM EDT LIPASE Routine 05/15/2025 4:07 PM EDT CREATINE KINASE, TOTAL Routine 4:07 PM EDT MAGNESIUM Routine 05/15/2025 4:07 PM EDT BASIC METABOLIC PANEL Routine 05/15/2025 4:07 PM EDT HEPATIC FUNCTION PANEL Routine 4:07 PM EDT ACETAMINOPHEN LEVEL Routine 05/15/2025 [...] Recently Relevant to Health Maintenance Results * Ethanol (05/15/2025 10:08 PM EDT) ETHANOL (MG/DL) IN SER/PLAS <10 mg/dL [facility] Comment:Serum/plasma ethanol results are to be used formedical/treatment purposes only. 05/15/2025 10:0 8 PM EDT 05/15/2025 10:13 PM EDT us Generic External Data Provider LAB BLOOD ORDERAB LES Final Result [facility] [address] [place] [phone] * Prothrombin Time-INR (05/15/2025 10:08 PM EDT) Prothrombin Time 11.0 10.9 - 12.4 SEC [facility] INTERNATIONAL NORM RATIO 1.0 0.9 - 1.1 [facility] Comment:INTERNATIONAL NORMAL IZED RATIO (INR) REFERENCE RANGES Reference RangeFor patients not on anticoagulant therapy: 0.9 - 1.1INR ranges for oral anticoagulanttherapy:For prevention and treatment of venous thrombosis and pulmonary embolism: 2.0 - 3.0For acute myocardial infarction with aspirin therapy: 2.0 - 3.0For acute myocardial infarction without aspirin therapy: 3.0 - 4.0For patients with mechanical prosthetic heart valves: 2.5 - 3.5 05/15/2025 10:0 8 PM EDT 05/15/2025 10:13 PM EDT Generic External Data Provider LAB BLOOD ORDERAB LES Final Result Performing Organization Address [facility] Co de Phone Number [facility] [address] [place] [address] [phone] * Lactic Acid (05/15/2025 10:08 PM EDT) Lactic Acid 0.9 0.5 - 2.0 mmol/L [facility] 05/15/2025 10:0 8 PM EDT 05/15/2025 10:13 PM EDT Generic External Data Provider LAB BLOOD ORDERAB LES Final Result Performing Organization Address [facility] de Phone Number [facility] [address] [place] [phone] * CT Abdomen Pelvis w/ Contrast (05/15/2025 8:33 PM EDT) Anatomical Region Laterality Modality Body, Pelvis, Abdomen Computed T omography 05/15/2025 8:33 PM EDT Narrative 05/15/2025 8:36 PM EDT [address] [address] [address] Scan Report Signed Patient: Kong Diggs Jr MR#: [id number] : 1985 Acct:[id number] Age/Sex: 39 / M ADM Date: 05/15/25 Loc: HO.ED Attending Dr: Ordering Physician: Harsh Velázquez Date of Service: 05/15/25 Procedure(s): CT abdomen pelvis w IV con Accession Number(s): [id number] cc: [facility]; Harsh Velázquez Report Number: [id number]: Total DLP = 0.00 mGy-cm Reason for Exam: jaundice elevated bili CLINICAL HISTORY: jaundice elevated bili CT abdomen and pelvis with contrast Comparison: CT/MO/SR - CT ABDOMEN WITHOUT THEN WITH IV CONTRAST - 01/01/24 13:38 EDT Findings: Diffuse esophageal mural thickening, nonspecific. Posterior paraesophageal node measuring 1 cm may be reactive however is nonspecific findings similar to prior. Atelectasis. Marked hepatomegaly with steatosis. Marked splenomegaly. Atrophic pancreas more so proximally. Punctate less than 2 mm nonobstructive calculus right lower pole kidney. Left upper pole hypodense 1.3 cm renal cyst. No hydronephrosis. No evidence of appendicitis mildly distended gallbladder. No radiopaque gallstones. No bowel obstruction, pneumoperitoneum, or pneumatosis. Fat containing inguinal hernias. No acute fracture. IMPRESSION: 1. Punctate less than 2 mm nonobstructive calculus right lower pole kidney. 2. Redemonstrated marked hepatosplenomegaly with hepatic steatosis. 3. Additional findings described. This document has been electronically signed by: Sundar Jimenes MD on 05/15/2025 20:33:55 Dictated By: Sundar Jimenes MD Signed By: <Electronically signed by Sundar Jimenes MD in OV> 05/15/252034 DD/ 32 TD/TT: 05/15/252032 [employer] Administrator: Procedure Note Donotuseinterpreter, Image - 05/15/[address] [address] [address] Scan Report Signed Patient: Kong Diggs [facility]#: [id number] : 1985Acct:[id number] Age/Sex: 39 / MADM Date: 05/15/25 Loc: HO.ED Attending Dr: Ordering Physician: Harsh Velázquez Date of Service: 05/15/25 Procedure(s): CT abdomen pelvis w IV con Accession Number(s): [id number] cc: [facility]; Harsh Velázquez Report Number: [id number]: Total DLP = 0.00 mGy-cm Reason for Exam: jaundice elevated bili CLINICAL HISTORY: jaundice elevated bili CT abdomen and pelvis with contrast Comparison: CT/MO/SR - CT ABDOMEN WITHOUT THEN WITH IV CONTRAST - 01/01/24 13:38 EDT Findings: Diffuse esophageal mural thickening, nonspecific. Posterior paraesophageal node measuring 1 cm may be reactive however is nonspecific findings similar to prior. Atelectasis. Marked hepatomegaly with steatosis. Marked splenomegaly. Atrophic pancreas more so proximally. Punctate less than 2 mm nonobstructive calculus right lower pole kidney. Left upper pole hypodense 1.3 cm renal cyst. No hydronephrosis. No evidence of appendicitis mildly distended gallbladder. No radiopaque gallstones. No bowel obstruction, pneumoperitoneum, or pneumatosis. Fat containing inguinal hernias. No acute fracture. IMPRESSION: 1. Punctate less than 2 mm nonobstructive calculus right lower pole kidney. 2. Redemonstrated marked hepatosplenomegaly with hepatic steatosis. 3. Additional findings described. This document has been electronically signed by: Sundar Jimenes MD on 05/15/2025 20:33:55 Dictated By: Sundar Jimenes MD Signed By: <Electronically signed by Sundar Jimenes MD in OV> 05/15/252034 DD/ 32 TD/TT: 05/15/252032 [employer] Administrator: us [facility] External Provider IMG CT PROCEDURES Edited Result - Final * (ABNORMAL) Urinalysis, Complete, with Reflex to Culture (05/15/2025 8:16 PM EDT) Color Urine Dark Yellow [facility] Appearance Urine Clear [facility] PH 6.5 5.0 - 9.0 [facility] Glucose Urine UA Negative Negative mg/dL [facility] Urine Blood Negative Negative [facility] Specific [place] - Urine >=1.030(H) 1.005 - 1.025 [facility] Urine Protein 30 (1+)(A) Neg-Trace mg/dL [facility] Urine Ketones Negative Negative mg/dL [facility] Nitrite Urine Negative Negative [facility] Leukocyte Esterase Urine Negative Negative [facility] RBC Urine 0-2 0 - 2 /HPF [facility] Urine WBC 0-5 0 - 5 /HPF [facility] Urine Squamous Epithelial Cell 0-2 0 - 2 /HPF [facility] Urine Bacteria None Seen None Seen [facility] Hyaline Casts, Urine 0-2 0 - 2 /LPF [facility] 05/15/2025 8:16 PM EDT 05/15/2025 8:18 PM EDT Narrative [facility] - 05/15/2025 9:40 PM EDT Urine, Clean Catch us Generic External Data Provider LAB URINE ORDERAB LES Final Result [facility] [address] [place] [phone] * (ABNORMAL) Urinalysis w/reflex microscopic (05/15/2025 8:16 PM EDT) Color Urine Dark Yellow [facility] Appearance Urine Clear [facility] PH 6.5 5.0 - 9.0 [facility] Glucose Urine UA Negative Negative mg/dL [facility] Urine Blood Negative Negative [facility] Specific [place] - Urine >=1.030(H) 1.005 - 1.025 [facility] Urine Protein 30 (1+)(A) Neg-Trace mg/dL [facility] Urine Ketones Negative Negative mg/dL [facility] Nitrite Urine Negative Negative [facility] Leukocyte Esterase Urine Negative Negative [facility] 05/15/2025 8:16 PM EDT 05/15/2025 8:18 PM EDT Narrative [facility] - 05/15/2025 8:41 PM EDT Urine, Clean Catch us Generic External Data Provider LAB URINE ORDERAB LES Final Result Performing Organization Address [facility] de Phone Number [facility] [address] [place] [address] [phone] * Ammonia, Plasma (05/15/2025 7:24 PM EDT) [facility] Ammonia (P) 46 13 - 55 umol/L [facility] Comment:Slight Hemolysis.Int erpret result with caution. 05/15/2025 7:24 PM EDT 05/15/2025 7:37 PM EDT us Generic External Data Provider LAB BLOOD ORDERAB LES Final Result Performing Organization Address [facility] Co de Phone Number [facility] [address] [place] [address] [phone] * Mononucleosis Test, Qualitative (05/15/2025 7:15 PM EDT) [facility] Monotest Negative Negative [facility] 05/15/2025 7:15 PM EDT 05/15/2025 7:37 PM EDT us Generic External Data Provider LAB BLOOD ORDERAB LES Final Result Performing Organization Address [facility] de Phone Number [facility] [address] [place] [address] [phone] * US Abdomen Limited (05/15/2025 6:09 PM EDT) Anatomical Region Laterality Modality Abdomen Ultrasound 05/15/2025 6:09 PM EDT Narrative 05/15/2025 6:10 PM EDT [address] [address] Ultrasound Report Signed Patient: Kong Diggs Jr MR#: [id number] : 1985 Acct:[id number] Age/Sex: 39 / M ADM Date: 05/15/25 Loc: HO.ED Attending Dr: Ordering Physician: Sofia Milan Date of Service: 05/15/25 Procedure(s): US abdomen limited Accession Number(s): [id number] cc: [facility]; Sofia Milan Reason for Exam: elevated bili CLINICAL HISTORY: elevated bili --- Additional Notes or Special Instructions: look at GB, liver, pancreas, ducts US abdomen limited Comparison: CT/MO/SR - CT ABDOMEN WITHOUT THEN WITH IV [...] MD in OV> 05/15/251809 DD/ 08 TD/TT: 05/15/25 180 [employer] Administrator: Procedure Note Donotuseinterpreter, Image - 05/15/[address] [address] Ultrasound Report Signed Patient: Kong Diggs JrMR#: [id number] : 1985Acct:[id number] Age/Sex: 39 / MADM Date: 05/15/25 Loc: .ED Attending Dr: Ordering Physician: Sofia Milan Date of Service: 05/15/25 Procedure(s): US abdomen limited Accession Number(s): [id number] cc: [facility]; Sofia Milan Reason for Exam: elevated bili CLINICAL HISTORY: elevated bili --- Additional Notes or SpecialInstructions: look at GB, liver, pancreas, ducts US abdomen limited Comparison: CT/MO/SR - CT ABDOMEN WITHOUT THEN WITH IV [...] in OV> 05/15/251809 DD/ 08 TD/TT: 05/15/251808 [employer] Administrator: us [facility] External Provider IMG US PROCEDURES Final Result * (ABNORMAL) CBC auto differential (05/15/2025 4:07 PM EDT) White Blood Count 3.1(L) 4.8 - 10.8 X10*3/uL [facility] Red Blood Count 4.93 4.60 - 5.80 X10*6/uL [facility] Hemoglobin 13.2(L) 14.0 - 18.0 g/dl [facility] Hematocrit 39.2(L) 42.0 - 52.0 % [facility] Mean Corpuscular Volume 79.5(L) 80.0 - 98.0 fL [facility] Mean Corpuscular Hemoglobin 26.8(L) 27.0 - 33.0 pg [facility] Mean Corpuscular HGB Conc 33.7 31.0 - 36.0 g/dl [facility] Red Cell Distribution Width 14.7 11.0 - 16.0 % [facility] Platelet Count 211 160 - 400 X10*3/uL [facility] Mean Platelet Volume 8.8(L) 9.4 - 12.4 fL [facility] Neutrophils Percent Auto 45.9 45 - 73 % [facility] Imm Gran Pct Auto 0.7(H) 0.0 - 0.4 % [facility] Lymphocytes Percent Auto 41.3(H) 20 - 40 % [facility] Monocytes Percent Auto 10.8 2 - 11 % [facility] Eosinophils Percent Auto 1.0 0 - 4 % [facility] Basophils Percent Auto 0.3 0 - 2 % [facility] NRBC Pct Auto 0.0 0.0 - 0.2 /100WBC [facility] Neutrophils Absolute Auto 1.4(L) 2.0 - 8.3 x10*3/uL [facility] Imm Gran Abs Auto 0.02 0.00 - 0.03 X10*3/uL [facility] Lymphocytes Absolute Auto 1.3 1.2 - 4.9 X10*3/uL [facility] Monocytes Absolute Auto 0.3 0.1 - 1.2 X10*3/uL [facility] Eosinophils Absolute Auto 0.0 0.0 - 0.4 X10*3/uL [facility] Basophils Absolute Auto 0.0 0.0 - 0.2 X10*3/uL [facility] NRBC Abs Auto 0.000 0.0 - 0.012 X10*3/uL [facility] 05/15/2025 4:07 PM EDT 05/15/2025 4:10 PM EDT us Generic External Data Provider LAB BLOOD ORDERAB LES Final Result [facility] [address] [place] [phone] * Magnesium (05/15/2025 4:07 PM EDT) Magnesium 2.1 1.6 - 2.6 mg/dL [facility] 05/15/2025 4:07 PM EDT 05/15/2025 4:10 PM EDT us Generic External Data Provider LAB BLOOD ORDERAB LES Final Result Performing Organization Address [facility] Co de Phone Number [facility] [address] [place] [address] [phone] * Lipase (05/15/2025 4:07 PM EDT) Lipase 27 8 - 78 U/L [facility] 05/15/2025 4:07 PM EDT 05/15/2025 4:10 PM EDT Generic External Data Provider LAB BLOOD ORDERAB LES Final Result Performing Organization Address [facility] Phone Number [facility] [address] [place] [address] [phone] * (ABNORMAL) Creatine Kinase, Total (05/15/2025 4:07 PM EDT) Creatine Kinase Total 29(L) 38 - 174 U/L [facility] 05/15/2025 4:07 PM EDT 05/15/2025 4:10 PM EDT us Generic External Data Provider LAB BLOOD ORDERAB LES Final Result Performing Organization Address [facility] Co de Phone Number [facility] [address] [place] [address] [phone] * Acetaminophen level (05/15/2025 4:07 PM EDT) Acetaminophen LAB <3 <30 mcg/mL [facility] 05/15/2025 4:07 PM EDT 05/15/2025 4:10 PM EDT us Generic External Data Provider LAB BLOOD ORDERAB LES Final Result Performing Organization Address [facility] Co de Phone Number [facility] [address] [place] [address] [phone] * (ABNORMAL) Hepatic Function Panel (05/15/2025 4:07 PM EDT) Bilirubin, Total 11.2(H) 0.0 - 1.0 mg/dL [facility] Comment:Mild Icterus. Bilirubin, Direct 8.1(H) 0.0 - 0.5 mg/dL [facility] Comment:Mild Icterus. Aspartate Amino Transferase 147(H) 5 - 37 U/L [facility] Alanine Aminotransferase 94(H) 0 - 40 U/L [facility] Total Protein 8.3(H) 6.5 - 8.0 g/dL [facility] Albumin Level 3.6 3.5 - 5.0 g/dL [facility] Alkaline Phosphatase 297(H) 39 - 117 U/L [facility] 05/15/2025 4:07 PM EDT 05/15/2025 4:10 PM EDT us Generic External Data Provider LAB BLOOD ORDERAB LES Final Result [facility] [address] [place] [phone] * Basic Metabolic Panel (05/15/2025 4:07 PM EDT) Pathologist [facility] Sodium 137 135 - 145 mmol/L [facility] Potassium 4.2 3.3 - 5.1 mmol/L [facility] Chloride 101 96 - 108 mmol/L [facility] Carbon Dioxide 27 22 - 29 mmol/L [facility] Anion Gap 13 12 - 20 [facility] Urea Nitrogen (BUN) 11 9 - 16 mg/dL [facility] Creatinine, Serum 0.82 0.5 - 1.4 mg/dL [facility] Comment:Mild Icterus.Interpr et result with caution. Creatinine Clr Calc Pharmacy 149.5 [facility] Comment:eGFR (calculated fro m the MDRD study equation) and eCrCl(calculated from the Cockcroft-Gault equation) are based ondifferent parameters and may not yield comparable results.If eCrCl result is absurd, please check patient'sheight/weight. Estimated Glomerular Filt Rate >60 [facility] Comment:Chronic Kidney Disea se: Estimated GFR < 60 mL/min/1.15f5Moeymt Kidney Disease: Estimated GFR < 15 mL/min/1.73m2 Glucose 91 60 - 115 mg/dL [facility] Calcium 9.3 8.4 - 10.2 mg/dL [facility] 05/15/2025 4:07 PM EDT 05/15/2025 4:10 PM EDT us Generic External Data Provider LAB BLOOD ORDERAB LES Final Result [facility] [address] [place] [phone] * (ABNORMAL) Lipid Panel, Standard (09/25/2024 11:13 AM EST) Triglycerides 265(H) <150 mg/dL [facility] Comment:Desirable Triglyceri de: less than 150 mg/dLBorderline High Triglyceride 150-199 mg/dLHigh Triglyceride: 200-499 mg/dLVery High Triglyceride: greater than or equal to 5OO mg/dL Cholesterol 201(H) <200 mg/dL [facility] Comment:Desirable Cholestero l: less than 200 mg/dLBorderline High Cholesterol: 200-239 mg/dLHigh Cholesterol: greater than 239 mg/dL LDL Cholesterol Calculated 120(H) <100 mg/dL [facility] Comment:Desirable LDL: less than 100 mg/dLNear Optimal/Above Optimal LDL: 110- 129 mg/dLBorderline High LDL: 130-159 mg/dLHigh LDL: 160-189 mg/dLVery High LDL: greater than or equal to 190 mg/dL HDL Cholesterol 28(L) >40 mg/dL [facility] Comment:Desirable HDL: great er than 40 mg/dL Note: This HDL assay may give artificially low results in patients with liver disease. Blood Venous blood specimen / Unknown 09/25/2024 11:13 AM EST 09/25/2024 12:05 PM EST Berenice Yoder HISTOTECHNICIAN LAB BLOOD ORDERABLES Final Resu lt [facility] [address] [place] [phone] from Last 3 Months or Most Recently Relevant to Health Maintenance Insurance [facility] C3 DENTAL-[facility] MEDICAID STAND ADULT Care Teams Soldering Machine Tender Relationship Specialty Start Date End Date Berenice Yoder NP [address] [place] [phone] PCP - General Family Medicine 06/13/23
--- OUTSIDE RECORDS SUMMARY | 2025-05-19 17:24 | XMS_ITS | Encounter Summary ---
Author Organization [employer] Address [address] [facility] [address] [place] [address] Care Team Providers Care Cracker Dough Mixer Name Role Phone Berenice Yoder NP Primary Care Provider [phone] Reason for Visit * Reason Comments Med Refill Encounter Details Date Type Department Care Team (Late Contact Info) Description 08/22/2023 Refill [facility] MEDICINE [address] [place] [phone] Name, MD Dennis [address] [place] [address] Pain Social History Tobacco Use Types Packs/Day [...] 2:15 PM EDT Office Visit [facility] ADULT DENTAL [address] [place] [address] Adarsh Pugaaris [address] [place] [address] documented as of this encounter Visit Diagnoses Diagnosis Pain Generalized pain documented in this encounter Care Teams Cracker Dough Mixer Relationship Specialty Start Date End Date Berenice Yoder NP [address] [place] [address] PCP - General Family Medicine 06/13/23 documented as of this encounter
--- OUTSIDE RECORDS SUMMARY | 2025-05-19 17:24 | XMS_ITS | Encounter Summary ---
Author Organization [employer] Address [address] [place] [address] Care Team Providers Care Wildland Firefighter Name Role Phone Yeisonaggie Berenice DAVI Primary Care Provider [phone] Encounter Details Date Type Department Care Team ([facility] st Contact Info) Description 05/15/2025 Orders Only [...] Description 06/25/2025 2:15 PM EDT Office Visit [facility] [address] [place] [address] Vivien, Carmencita [address] [place] [address] documented as of this encounter Procedures Procedure Name Priority Date/Time Associated Diagnosis Comments ETHANOL Routine 05/15/2025 10:08 PM EDT PROTHROMBIN TIME-INR Routine 05/15/2025 10:08 PM EDT LACTIC ACID [...] CREATINE KINASE, TOTAL Routine 4:07 PM EDT ACETAMINOPHEN LEVEL Routine 05/15/2025 4 :07 PM EDT HEPATIC FUNCTION PANEL Routine 4:07 PM EDT BASIC METABOLIC PANEL Routine 05/15/2025 4:07 PM EDT documented in this encounter Results * Prothrombin Time-INR (05/15/2025 10:08 PM EDT) Prothrombin Time 11.0 10.9 - 12.4 SEC [facility] INTERNATIONAL NORM RATIO 1.0 0.9 - 1.1 [facility] Comment:INTERNATIONAL NORMAL IZED RATIO (INR) REFERENCE [...] Provider LAB BLOOD ORDERAB LES Final Result [facility] [address] [place] [address] [phone] * Ethanol (05/15/2025 10:08 PM EDT) ETHANOL (MG/DL) IN SER/PLAS <10 mg/dL [facility] Comment:Serum/plasma ethanol results are to be used formedical/treatment purposes only. 05/15/2025 10:0 8 PM EDT 05/15/2025 10:13 PM EDT Generic External Data Provider LAB BLOOD ORDERAB LES Final Result Performing Organization Address City/[facility]/ZIP Co de Phone Number [facility] [address] [place] [phone] * Lactic Acid (05/15/2025 10:08 PM EDT) Lactic Acid 0.9 0.5 - 2.0 mmol/L [facility] 05/15/2025 10:0 8 PM EDT 05/15/2025 10:13 PM EDT Generic External Data Provider LAB BLOOD ORDERAB LES Final Result Performing Organization Address [facility] Co de Phone Number [facility] [address] [place] [phone] * CT Abdomen Pelvis w/ Contrast (05/15/2025 8:33 PM EDT) Anatomical Region Laterality Modality Body, Pelvis, Abdomen Computed T omography 05/15/2025 8:33 PM EDT Narrative 05/15/2025 8:36 PM EDT [address] [address] [address] Scan Report Signed Patient: Kong Diggs Jr MR#: [id number] : 1985 Acct:[id number] Age/Sex: 39 / M ADM Date: 05/15/25 Loc: .ED Attending Dr: Ordering Physician: Harsh Velázquez Date of Service: 05/15/25 Procedure(s): CT abdomen pelvis w IV con Accession Number(s): [id number] cc: [facility]; Harsh Velázquez Report Number: [id number]: Total DLP = 0.00 mGy-cm Reason for Exam: jaundice elevated bili CLINICAL HISTORY: jaundice elevated bili CT abdomen and pelvis with contrast Comparison: CT/CT/SR - CT ABDOMEN WITHOUT THEN [...] in OV> 05/15/252034 DD/ 32 TD/TT: 05/15/252032 Private Duty Rn: Procedure Note Donotuseinterpreter, Image - 05/15/[address] [address] [address] Scan Report Signed Patient: Kong Diggs [facility]#: [id number] : 1985Acct:[id number] Age/Sex: 39 / MADM Date: 05/15/25 Loc: HO.ED Attending Dr: Ordering Physician: Harsh Velázquez Date of Service: 05/15/25 Procedure(s): CT abdomen pelvis w IV con Accession Number(s): [id number] cc: [facility]; Harsh Velázquez Report Number: [id number]: Total DLP = 0.00 mGy-cm Reason for Exam: jaundice elevated bili CLINICAL HISTORY: jaundice elevated bili CT abdomen and pelvis with contrast Comparison: CT/CT/SR - CT ABDOMEN WITHOUT THEN [...] in OV> 05/15/252034 DD/ 32 TD/TT: 05/15/252032 Private Duty Rn: [facility] External Provider IMG CT PROCEDURES Edited Result - Final * (ABNORMAL) Urinalysis, Complete, with Reflex to Culture (05/15/2025 8:16 PM EDT) Color Urine Dark Yellow [facility] Appearance Urine Clear [facility] PH 6.5 5.0 - 9.0 [facility] Glucose Urine UA Negative Negative mg/dL [facility] Urine Blood Negative Negative [facility] Specific [place] - Urine >=1.030(H) 1.005 - 1.025 [facility] Urine Protein 30 (1+)(A) Neg-Trace mg/dL [facility] Urine Ketones Negative Negative mg/dL [facility] Nitrite Urine Negative Negative [facility] Leukocyte Esterase Urine Negative Negative [facility] RBC Urine 0-2 0 - 2 /HPF [facility] Urine WBC 0-5 0 - 5 /HPF [facility] Urine Squamous Epithelial Cell 0-2 0 - 2 /HPF [facility] Urine Bacteria None Seen None Seen [facility] Hyaline Casts, Urine 0-2 0 - 2 /LPF [facility] 05/15/2025 8:16 PM EDT 05/15/2025 8:18 PM EDT Narrative [facility] - 05/15/2025 9:40 PM EDT Urine, Clean Catch us Generic External Data Provider LAB URINE ORDERAB LES Final Result Performing Organization Address [facility] Co de Phone Number [facility] [address] [place] [phone] * (ABNORMAL) Urinalysis w/reflex microscopic (05/15/2025 8:16 PM EDT) Color Urine Dark Yellow [facility] Appearance Urine Clear [facility] PH 6.5 5.0 - 9.0 [facility] Glucose Urine UA Negative Negative mg/dL [facility] Urine Blood Negative Negative [facility] Specific [place] - Urine >=1.030(H) 1.005 - 1.025 [facility] Urine Protein 30 (1+)(A) Neg-Trace mg/dL [facility] Urine Ketones Negative Negative mg/dL [facility] Nitrite Urine Negative Negative [facility] Leukocyte Esterase Urine Negative Negative [facility] 05/15/2025 8:16 PM EDT 05/15/2025 8:18 PM EDT Narrative [facility] - 05/15/2025 8:41 PM EDT Urine, Clean Catch us Generic External Data Provider LAB URINE ORDERAB LES Final Result Performing Organization Address [facility]/ZIP Co de Phone Number [facility] [address] [place] [phone] * Ammonia, Plasma (05/15/2025 7:24 PM EDT) Ammonia (P) 46 13 - 55 umol/L [facility] Comment:Slight Hemolysis.Int erpret result with caution. 05/15/2025 7:24 PM EDT 05/15/2025 7:37 PM EDT Generic External Data Provider LAB BLOOD ORDERAB LES Final Result Performing Organization Address [facility] de Phone Number [facility] [address] [place] [phone] * Mononucleosis Test, Qualitative (05/15/2025 7:15 PM EDT) Monotest Negative Negative [facility] 05/15/2025 7:15 PM EDT 05/15/2025 7:37 PM EDT Generic External Data Provider LAB BLOOD ORDERAB LES Final Result Performing Organization Address [facility] Phone Number [facility] [address] [place] [phone] * US Abdomen Limited (05/15/2025 6:09 PM EDT) Anatomical Region Laterality Modality Abdomen Ultrasound 05/15/2025 6:09 PM EDT Narrative 05/15/2025 6:10 PM EDT [address] [address] Ultrasound Report Signed Patient: Kong Diggs Jr MR#: [id number] : 1985 Acct:[id number] Age/Sex: 39 / M ADM Date: 05/15/25 Loc: HO.ED Attending Dr: Ordering Physician: Sofia Milan Date of Service: 05/15/25 Procedure(s): US abdomen limited Accession Number(s): [id number] cc: [facility]; Sofia Milan Reason for Exam: elevated bili [...] in OV> 05/15/251809 DD/ 08 TD/TT: 05/15/251808 Private Duty Rn: Procedure Note Donotuseinterpreter, Image - 05/15/2025 [place] [address] Ultrasound Report Signed Patient: Kong Diggs [facility]#: [id number] : 1985Acct:[id number] Age/Sex: 39 / MADM Date: 05/15/25 Loc: HO.ED Attending Dr: Ordering Physician: Sofia Milan Date of Service: 05/15/25 Procedure(s): US abdomen limited Accession Number(s): [id number] cc: [facility]; Sofia Milan Reason for Exam: elevated bili [...] in OV> 05/15/251809 DD/ 08 TD/TT: 05/15/251808 Private Duty Rn: [facility] External Provider IMG US PROCEDURES Final Result * Lipase (05/15/2025 4:07 PM EDT) Pathologist [facility] Lipase 27 8 - 78 U/L [facility] 05/15/2025 4:07 PM EDT 05/15/2025 4:10 PM EDT Generic External Data Provider LAB BLOOD ORDERAB LES Final Result Performing Organization Address City/[facility]/ZIP Co de Phone Number [facility] [address] [place] [phone] * (ABNORMAL) Creatine Kinase, Total (05/15/2025 4:07 PM EDT) Pathologist [facility] Creatine Kinase Total 29(L) 38 - 174 U/L [facility] 05/15/2025 4:07 PM EDT 05/15/2025 4:10 PM EDT Generic External Data Provider LAB BLOOD ORDERAB LES Final Result Performing Organization Address City/[facility] Co de Phone Number [facility] [address] [place] [phone] * Magnesium (05/15/2025 4:07 PM EDT) Pathologist [facility] Magnesium 2.1 1.6 - 2.6 mg/dL [facility] 05/15/2025 4:07 PM EDT 05/15/2025 4:10 PM EDT us Generic External Data Provider LAB BLOOD ORDERAB LES Final Result Performing Organization Address City/[facility]/ZIP Co de Phone Number [facility] [address] [place] [phone] * Basic Metabolic Panel (05/15/2025 4:07 PM EDT) Sodium 137 135 - 145 mmol/L [facility] Potassium 4.2 3.3 - 5.1 mmol/L [facility] Chloride 101 96 - 108 mmol/L [facility] Carbon Dioxide 27 22 - 29 mmol/L [facility] Anion Gap 13 12 - 20 [facility] Urea Nitrogen (BUN) 11 9 - 16 mg/dL [facility] Creatinine, Serum 0.82 0.5 - 1.4 mg/dL [facility] Comment:Mild Icterus.Interpr et result with caution. Creatinine Clr Calc Pharmacy 149.5 [facility] Comment:eGFR (calculated fro m the MDRD study equation) and eCrCl(calculated from the Cockcroft-Gault equation) are based ondifferent parameters and may not yield comparable results.If eCrCl result is absurd, please check patient'sheight/weight. Estimated Glomerular Filt Rate >60 [facility] Comment:Chronic Kidney Disea se: Estimated GFR < 60 mL/min/[id number] Kidney Disease: Estimated GFR < 15 mL/min/1.73m2 Glucose 91 60 - 115 mg/dL [facility] Calcium 9.3 8.4 - 10.2 mg/dL [facility] 05/15/2025 4:07 PM EDT 05/15/2025 4:10 PM EDT us Generic External Data Provider LAB BLOOD ORDERAB LES Final Result Performing Organization Address City/[facility]/ZIP Co de Phone Number [facility] [address] [place] [phone] * (ABNORMAL) Hepatic Function Panel (05/15/2025 4:07 PM EDT) [facility] Bilirubin, Total 11.2(H) 0.0 - 1.0 mg/dL [facility] Comment:Mild Icterus. Bilirubin, Direct 8.1(H) 0.0 - 0.5 mg/dL [facility] Comment:Mild Icterus. Aspartate Amino Transferase 147(H) 5 - 37 U/L [facility] Alanine Aminotransferase 94(H) 0 - 40 U/L [facility] Total Protein 8.3(H) 6.5 - 8.0 g/dL [facility] Albumin Level 3.6 3.5 - 5.0 g/dL [facility] Alkaline Phosphatase 297(H) 39 - 117 U/L [facility] 05/15/2025 4:07 PM EDT 05/15/2025 4:10 PM EDT us Generic External Data Provider LAB BLOOD ORDERAB LES Final Result Performing Organization Address City/[facility]/ZIP Co de Phone Number [facility] [address] [place] [phone] * Acetaminophen level (05/15/2025 4:07 PM EDT) [facility] Acetaminophen LAB <3 <30 mcg/mL [facility] 05/15/2025 4:07 PM EDT 05/15/2025 4:10 PM EDT us Generic External Data Provider LAB BLOOD ORDERAB LES Final Result Performing Organization Address City/[facility]/ZIP Co de Phone Number [facility] [address] [place] [phone] * (ABNORMAL) CBC auto differential (05/15/2025 4:07 PM EDT) [facility] White Blood Count 3.1(L) 4.8 - 10.8 X10*3/uL [facility] Red Blood Count 4.93 4.60 - 5.80 X10*6/uL [facility] Hemoglobin 13.2(L) 14.0 - 18.0 g/dl [facility] Hematocrit 39.2(L) 42.0 - 52.0 % [facility] Mean Corpuscular Volume 79.5(L) 80.0 - 98.0 fL [facility] Mean Corpuscular Hemoglobin 26.8(L) 27.0 - 33.0 pg [facility] Mean Corpuscular HGB Conc 33.7 31.0 - 36.0 g/dl [facility] Red Cell Distribution Width 14.7 11.0 - 16.0 % [facility] Platelet Count 211 160 - 400 X10*3/uL [facility] Mean Platelet Volume 8.8(L) 9.4 - 12.4 fL [facility] Neutrophils Percent Auto 45.9 45 - 73 % [facility] Imm Gran Pct Auto 0.7(H) 0.0 - 0.4 % [facility] Lymphocytes Percent Auto 41.3(H) 20 - 40 % [facility] Monocytes Percent Auto 10.8 2 - 11 % [facility] Eosinophils Percent Auto 1.0 0 - 4 % [facility] Basophils Percent Auto 0.3 0 - 2 % [facility] NRBC Pct Auto 0.0 0.0 - 0.2 /100WBC [facility] Neutrophils Absolute Auto 1.4(L) 2.0 - 8.3 x10*3/uL [facility] Imm Gran Abs Auto 0.02 0.00 - 0.03 X10*3/uL [facility] Lymphocytes Absolute Auto 1.3 1.2 - 4.9 X10*3/uL [facility] Monocytes Absolute Auto 0.3 0.1 - 1.2 X10*3/uL [facility] Eosinophils Absolute Auto 0.0 0.0 - 0.4 X10*3/uL [facility] Basophils Absolute Auto 0.0 0.0 - 0.2 X10*3/uL [facility] NRBC Abs Auto 0.000 0.0 - 0.012 X10*3/uL [facility] 05/15/2025 4:07 PM EDT 05/15/2025 4:10 PM EDT us Generic External Data Provider LAB BLOOD ORDERAB LES Final Result [facility] [address] [place] [phone] documented in this encounter Visit Diagnoses Not on filedocumented in this encounter Additional Health Concerns Assessment Noted Time PHQ-9 Depression Total Score: 0 11/01/19 24 3:16 PM EST documented as of this encounter Care Teams Wildland Firefighter Relationship Specialty Start Date End Date Berenice Yoder NP [address] [place] [address] PCP - General Family Medicine 06/13/23 documented as of this encounter
--- OUTSIDE RECORDS SUMMARY | 2025-05-19 17:24 | XMS_ITS | Encounter Summary ---
Author Organization [employer] Address [address] [place] [address] Care Team Providers Care Nut Picker Name Role Phone Berenice Yoder NP Primary Care Provider [phone] Reason for Visit * Reason Onset Date Comments Appointment Request 08/29/2024 Encounter Details Date Type Department Care Team ([facility] Contact Info) Description 08/29/2024 Telephone [facility] [address] [place] [address] Berenice Yoder NP [address] [place] [address] Appointment Request Social History Tobacco Use Types [...] they stated that he needs a Apt. Live In Companion advised pt that it would be towards the end of September and pt would like it as soon as possible. If any questions contact pt at [phone] documented in this encounter Plan of Treatment Upcoming Encounters Date Type Department Care Team (Late st Contact Info) Description 06/25/2025 2:15 PM EDT Office Visit [facility] [address] [place] [address] Carmencita Puga [address] [place] [address] documented as of this encounter Visit Diagnoses Not on filedocumented in this encounter Additional Health Concerns Assessment Noted Time PHQ-9 Depression Total Score: 0 11/01/19 24 3:16 PM EST documented as of this encounter Care Teams Nut Picker Relationship Specialty Start Date End Date Berenice Yoder NP [address] [place] [address] PCP - General Family Medicine 06/13/23 documented as of this encounter
--- OUTSIDE RECORDS SUMMARY | 2025-05-19 17:24 | XMS_ITS | Encounter Summary ---
Author Organization [employer] [facility] Address [address] [place] [address] 7t [place] [address] Care Team Providers Care Lockstitch Topstitcher Name Role Phone Shell PiperP Primary Care Provider Berenice Lopez NP Primary Care Provider [phone] Encounter Details Date Type Department Care Team (Latest Contact Info) Description 06/08/2020 Abstract [facility] CON[facility] Dental, Provider, DDS Social History [...] Description 06/25/2025 2:15 PM EDT Office Visit [facility] [address] [place] [address] Vivien, Carmencita [address] [place] [address] documented as of this encounter Visit Diagnoses Not on filedocumented in this encounter Care Teams Lockstitch Topstitcher Relationship Specialty Start Date End Date Shell Piper FNP PCP - General Family Medicine 06/28/21 06/12/23 Berenice Yoder NP [address] [place] [address] PCP - General Family Medicine 06/13/23 documented as of this encounter
[2025-05-21] VITALS (18 sets, daily range): BP systolic 103–142; BP diastolic 46–91; PULSE 69–83; RESP 12–20; TEMP 36.4–36.6; O2SAT 92–97; BMI 35.8; BMI 35.7
--- NOTE | ~2025-05-21 | US_ITS ---
Ultrasound-guided liver biopsy History: Hyperbilirubinemia Procedure: Ultrasound-guided liver biopsy Risks and benefits and possible complications were discussed with the patient and consent form was signed. The abdomen was prepped and draped in usual sterile fashion. 1% lidocaine was used for anesthesia. A 17-gauge coaxial needle was inserted through the skin and soft tissues and into the right lobe of the liver. A total of 4, 18-gauge cores were performed. Permanent ultrasound images were archived. 2 Gelfoam torpedoes were inserted through the coaxial and administered into the biopsy tract and at the level of the capsule. The needle was then removed. The specimens were placed in formalin and sent to pathology. The patient tolerated the procedure well. The procedure was performed under moderate sedation with a dedicated nurse for monitoring of vital signs. Medications: Fentanyl, Versed and Lidocaine Moderate sedation time: 20 min This procedure was performed by Ganga Keller NP and directly supervised by Josh Wyman M.D.. US/US biopsy liver Impression: Ultrasound-guided liver biopsy Electronically signed by: Josh Wyman MD 05/22/2025 11:36 AM EDT Workstation: [id number]
[2025-05-21] MEDS: Lidocaine HCl 1 % MPF 5 ML VIAL SUBCUT (15:43)
[2025-05-21] MEDS: oxyCODONE HCl Immed Release 5 MG TABLET PO (16:02)
== END 2025-05-21 18:38 | disposition home or self-care (01) ==
PROVIDERS: Radiology Vascular & Interventional Radiology; Visit Provider Internal Medicine
DX: B18.2 Chronic viral hepatitis C (principal); K74.02 Hepatic fibrosis, advanced fibrosis; K76.0 Fatty (change of) liver, not elsewhere classified; E80.6 Other disorders of bilirubin metabolism; F11.20 Opioid dependence, uncomplicated; Z87.891 Personal history of nicotine dependence
CPT/HCPCS: 47000; 76942; 88307; 88313; 88342; 99152; 99153; J1171; J2003; J2250; J2312; J3010

== ENCOUNTER → 2025-05-21 14:21 | Outpatient (BNV) | payer MEDICAID, SELFPAY | DX: E80.6 Other disorders of bilirubin metabolism (principal) | CPT/HCPCS: 47000; 76942 ==

== ENCOUNTER 2025-05-29 13:33 | Emergency (ER) | payer MEDICAID, SELFPAY ==
--- NOTE | ~2025-05-29 | XR_ITS ---
EXAMINATION: XR CHEST CLINICAL INFORMATION: SOB, recent liver biopsy COMPARISON: 06/20/2016 TECHNIQUE: 2 views of the chest were obtained. FINDINGS: There are linear densities in the left greater than right lung base. Right heart border is secured by a focal opacity. There is no pleural effusion. Heart size is normal. Lungs clear otherwise. XR/XR chest 2V IMPRESSION: Possible right middle lobe pneumonia. Linear densities at lung base that probably represents atelectasis. Electronically signed by: Jack Goyal MD 05/29/2025 02:28 PM EDT
--- NOTE | ~2025-05-29 | CT_ITS ---
CLINICAL HISTORY: s p liver biopsy, has pain CT abdomen and pelvis with IV contrast. COMPARISON: CT abdomen and pelvis dated 05/29/25 at 17:27 EDT FINDINGS: Minimal atelectasis versus scarring along the lung bases. Liver is enlarged with right lobe measuring 24.7 cm. No focal hepatic lesion. No perihepatic edema or evidence of laceration. No evidence of active hemorrhage within the liver. Gallbladder is contracted. Spleen is enlarged measuring 19.4 cm in length. Normal pancreas. Normal adrenal glands. Symmetric renal enhancement. No hydronephrosis. Left renal cystic lesion of the superior pole measuring up to 1.9 cm. Right lower pole 1 mm renal calculus. Diminutive appendix. Mild colonic stool burden. No bowel obstruction. No mesenteric or retroperitoneal lymphadenopathy. Normal abdominal aorta. Normal appearance of the urinary bladder. No inguinal lymphadenopathy. Small fat containing umbilical hernia. No acute fracture or suspicious bone lesion. IMPRESSION: 1. No evidence of acute injury to the liver. No perihepatic edema or evidence of laceration. No evidence for active hemorrhage. 2. Marked hepatosplenomegaly, stable. This document has been electronically signed by: Gigi Mccloud MD on 05/29/2025 18:27:47
[2025-05-29 13:59] VITALS: BP 140/65; PULSE 79; RESP 18; TEMP 36.7; O2SAT 94; BMI 38.5
--- NOTE | 2025-05-29 13:59 | ED_ITS ---
HPI - General Adult General Chief complaint: General Medical Stated complaint: Sharp pain from biopsy site, sob Time Seen by Provider: 05/29/25 16:19 Source: patient Mode of arrival: ambulatory Limitations: no limitations History of Present Illness ED Provider: HPI narrative: 39-year-old male status post ultrasound-guided liver biopsy on May 21, he states 3 days ago he started developing right sided pain underneath his right ribcage, and he is short of breath because of that, he is on methadone, no ongoing IV drug use, he was admitted prior due to jaundice and he continues to have jaundice. History of hepatitis-C, no alcohol use disorder. Related Data Home Medications ?Medication ?Instructions ?Recorded ?Confirmed methadone 10 mg/mL oral concentrate 99 mg PO DAILY 05/21/25 omeprazole 20 mg capsule,delayed 20 mg PO DAILY@0630 P RN Acid Reflux 08/03/23 05/21/25 release Previous Rx's ?Medication ?Instructions ?Recorded doxycycline hyclate 100 mg capsule 100 mg PO BID 7 day s #14 caps 05/29/25 naproxen 500 mg tablet (Naprosyn) 500 mg PO BID 5 days #10 tabs 05/29/25 Allergies Allergy/AdvReac Type Severity Reaction Status Date / Time amoxicillin (AMOXICILLIN) Allergy Unknown RASH Verified 05/29/25 14:02 From FLEXERIL Allergy Unknown STOMACH Uncoded 01/31/24 15:21 UPSET Review of Systems 2 Constitutional: Constitutional: Reports as per [facility] Past Medical History Medical History Hepatitis C IVDU (intravenous drug user) Surgical History (Updated 05/16/25 @ 14:08 by Ashley Mackay MD) Hx of cystoscopy Social History Social History Household Members: None Housing: Apartment Do you presently have visiting nurse or other home services: No Patient Tobacco Use Status: Former Tobacco user Smoked in Last 30 Days: No Use of substances other than those prescribed or required for medical reasons: No Advance Directives: No Advance Directives Information Provided: No Do you have a plan to hurt others: No Plan service: No Physical Exam ED Vital Signs: Vital Signs - 24 hr 05/29/25 13:59 05/29/25 16:31 05/29/25 19:06 Temperature 98.0 F 97.5 F 97.5 F Pulse Rate 79 62 60 Respiratory Rate 18 14 14 Blood Pressure 140/65 H 105/58 L 114/60 Pulse Oximetry 94 96 97 Oxygen Delivery Method Room Air Room Air Room Air BMI result Body Mass Index 38.5 Const Other: * Gen: ?Overall well-appearing patient * HEENT: Possible slight scleral icterus * Neck: Supple, no LAD * CV: RRR, no obvious murmurs appreciated * Resp: ?No wheezing rales rhonchi no stridor moving air well * Abd: ?Bowel sounds are present, no tenderness no rebound no rigidity, bruising from prior biopsy, there was no abdominal tenderness but he had some tenderness over the right-sided ribcage * MSK: FROM, strength 5/5 all extremities * Skin: Warm, dry, intact, residual jaundice * Neuro: ?Alert and oriented x3, moving upper and lower extremities symmetrically, no obvious facial asymmetry noted Course Course Course Narrative: This is an RME: Additional HPI, ROS, PE not included below will be deferred to primary provider. RME assessment and note performed by: Leonila Mitchell PA-C This is a [id number], history of hepatitis-C, former IV drug use, opioid dependency on methadone who presents to the ER with a complaint of shortness of breath, right sided sharp pain. He had a liver biopsy 3 days ago. Plan: Labs, x-ray, further ER evaluation needed. Medications Administered Discontinued Medications Generic Name Dose Route Start Last Admin Trade Name Freq PRN Reason Stop Dose Admin Iohexol 100 ml 05/29/25 17:38 05/29/25 17:39 Iohexol 350 Mg/Ml 100 Ml Infus..Btl IV 05/29/25 17:39 85 ml ONCE ONE Administration Ketorolac Tromethamine 15 mg 05/29/25 18:53 05/29/25 19:01 Ketorolac Tromethamine 15 Mg/Ml Vial IVPUSH 05/29/25 18:54 15 mg ONCE ONE Administration Lidocaine 1 patch 05/29/25 17:17 05/29/25 17:27 Lidocaine 4 % Patch Adh..Patch TRANSDERMA 05/29/25 17:18 1 patch ONCE ONE Administration Protocol Medical Decision Making Medical Decision Making MDM Narrative: 5:18 PM 05/29/2025 (Dr. Jonathon Leos): Patient is presenting with a pain at the biopsy site, shortness of breath he describes as due to inspiration and pain in the area, he had a chest x-ray I do not appreciate obvious consolidations, radiologist feels there maybe middle lobe pneumonia on the right side he is not hypoxic is not tachycardic he is not febrile, is somewhat leukopenic this is baseline, he does have jaundice LFTs are still elevated, I will obtain CT abdomen and pelvis to evaluate for ongoing bleeding his H&H however stable, as far as pain management he is on quite a high dose of methadone there would be no utility to add additional opiates, I would not treat him with acetaminophen and until I know whether he has bleeding and not would avoid Toradol Differential Diagnosis Differential Diagnoses: The differential diagnosis associated with the presentation includes (Pneumothorax, pneumonia, postprocedural bleeding, PE,) Admission/Observation Consideration of admission/observation: Escalation of care including admission/observation considered Lab Data MDM Lab Attestation statement: I reviewed the patient's lab results. 05/29/25 14:51 05/29/25 14:51 Labs: Lab Results 05/29/25 Range/Units 14:51 WBC 2.7 L (4.8-10.8) X10*3/uL RBC 4.68 (4.60-5.80) X10*6/uL Hgb 12.5 L (14.0-18.0) g/dl Hct 37.6 L (42.0-52.0) % MCV 80.3 (80.0-98.0) fL MCH 26.7 L (27.0-33.0) pg MCHC 33.2 (31.0-36.0) g/dl RDW 14.5 (11.0-16.0) % Plt Count 303 D (160-400) X10*3/uL MPV 8.9 L (9.4-12.4) fL Immature Gran % (Auto) 0.0 (0.0-0.4) % Neut % (Auto) 43.5 L (45-73) % Lymph % (Auto) 40.6 H (20-40) % [place] % (Auto) 12.2 H (2-11) % Eos % (Auto) 3.0 (0-4) % Baso % (Auto) 0.7 (0-2) % Lymph # (Auto) 1.1 L (1.2-4.9) X10*3/uL [place] # (Auto) 0.3 (0.1-1.2) X10*3/uL Eos # (Auto) 0.1 (0.0-0.4) X10*3/uL Baso # (Auto) 0.0 (0.0-0.2) X10*3/uL Abs Immat Gran (auto) 0.00 (0.00-0.03) X10*3/uL Absolute Neuts (auto) 1.2 L (2.0-8.3) x10*3/uL Absolute Nucleated RBC 0.000 (0.0-0.012) X10*3/uL Nucleated RBC % (auto) 0.0 (0.0-0.2) /100WBC Sodium 138 (135-145) mmol/L Potassium 4.3 (3.3-5.1) mmol/L Chloride 102 (96-108) mmol/L Carbon Dioxide 28 (22-29) mmol/L Anion Gap 12 (12-20) BUN 11 (9-16) mg/dL Creatinine 1.05 (0.5-1.4) mg/dL Estim Creat Clear Calc 110.2 Estimated GFR > 60 Random Glucose 103 (60-115) mg/dL Calcium 9.2 (8.4-10.2) mg/dL Magnesium 2.1 (1.6-2.6) mg/dL Total Bilirubin 5.6 H (0.0-1.0) mg/dL Direct Bilirubin 4.0 H (0.0-0.5) mg/dL AST 162 H (5-37) U/L ALT 105 H (0-40) U/L Alkaline Phosphatase 291 H (39-117) U/L Total Protein 8.7 H (6.5-8.0) g/dL Albumin 3.7 (3.5-5.0) g/dL Lipase 24 (8-78) U/L Independent Interpretation I performed an independent interpretation of an: Plain X-Ray (There was no evidence for pneumothorax, I do not appreciate obvious consolidations) Radiology Impression Discussion of test interpretation with radiology: I have reviewed the radiologist's reading. ( XR/XR chest 2V IMPRESSION: Possible right middle lobe pneumonia. Linear densities at lung base that probably represents atelectasis.) Radiologist Impression: 1. No evidence of acute injury to the liver. No perihepatic edema or evidence of laceration. No evidence for active hemorrhage. 2. Marked hepatosplenomegaly, stable. 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 C) Social Determinants Patient?s care significantly limited by Social Determinants of Health including: Problems related to primary support group Discharge Plan Discharge Clinical Impression: Other acute postprocedural pain, Community acquired pneumonia Patient Disposition: Home, Self-Care Additional Instructions: You do not have any post biopsy issues such as bleeding, you can take Naprosyn 500 mg every 12 hours hours as needed for pain, warm compresses to the area, your chest x-ray revealed possible pneumonia, I think it is reasonably safe to start you on a dose of antibiotics to prevent worsening coarse though your vital signs and blood work has been reassuring. Please follow up with the PCP worsening issues or concerns come back to the ER, you are not supposed to take acetaminophen for pain, I did prescribe Naprosyn 500 mg twice a day Prescriptions: New doxycycline hyclate 100 mg capsule 100 mg PO BID 7 Days Qty: 14 0RF naproxen [Naprosyn] 500 mg tablet 500 mg PO BID 5 Days Qty: 10 0RF No Action methadone 10 mg/mL concentrate 99 mg PO DAILY Rx Instructions: Sonia Moore [phone] omeprazole 20 mg capsule,delayed release(DR/EC) 20 mg PO DAILY@0630 PRN (Reason: Acid Reflux) Interventions: ED Discharge Assessment Last Done: 05/29/25 19:06 Discharge Date/Time: 05/29/25 19:07 Print Language: Turkmen
[2025-05-29 14:54] LABS: MANUAL DIFF FLAG NO
[2025-05-29 15:08] LABS: Hematocrit 37.6 % (42.0-52.0); Hemoglobin 12.5 g/dl (14.0-18.0); Imm Gran Abs Auto 0.00 X10*3/uL (0.00-0.03); Imm Gran Pct Auto 0.0 % (0.0-0.4); Lymphocytes Absolute Auto 1.1 X10*3/uL (1.2-4.9); Mean Corpuscular HGB Conc 33.2 g/dl (31.0-36.0); Mean Corpuscular Hemoglobin 26.7 pg (27.0-33.0); Mean Corpuscular Volume 80.3 fL (80.0-98.0); NRBC Abs Auto 0.000 X10*3/uL (0.0-0.012); NRBC Pct Auto 0.0 /100WBC (0.0-0.2); Platelet Count 303 X10*3/uL (160-400); Red Blood Count 4.68 X10*6/uL (4.60-5.80); White Blood Count 2.7 X10*3/uL (4.8-10.8)
[2025-05-29 15:11] LABS: Alanine Aminotransferase 105 U/L (0-40); Albumin Level 3.7 g/dL (3.5-5.0); Alkaline Phosphatase 291 U/L (39-117); Anion Gap 12 (12-20); Aspartate Amino Transferase 162 U/L (5-37); Blood Urea Nitrogen 11 mg/dL (9-16); Calcium 9.2 mg/dL (8.4-10.2); Carbon Dioxide 28 mmol/L (22-29); Chloride 102 mmol/L (96-108); Creatinine Clr Calc Pharmacy 110.2; Estimated Glomerular Filt Rate > 60; Lipase 24 U/L (8-78); Magnesium 2.1 mg/dL (1.6-2.6); Potassium 4.3 mmol/L (3.3-5.1); Sodium 138 mmol/L (135-145); Total Protein 8.7 g/dL (6.5-8.0)
[2025-05-29 16:31] VITALS: BP 105/58; PULSE 62; RESP 14; TEMP 36.4; O2SAT 96
[2025-05-29] MEDS: Lidocaine 4 % Patch ADH..PATCH 1 PATCH TRANSDERMA (17:27)
[2025-05-29] MEDS: iohexoL 350 MG/ML 100 ML INFUS..BTL IV (17:39)
--- OUTSIDE RECORDS SUMMARY | 2025-05-29 18:53 | XMS_ITS | Encounter Summary ---
Author Organization [employer] Address [address] [place] [address] Care Team Providers Care Scooper Name Role Phone Berenice Yoder NP Primary Care Provider [phone] Reason for Visit * Reason Onset Date Comments Appointment Request 08/29/2024 Encounter Details Date Type Department Care Team ([facility] Contact Info) Description 08/29/2024 Telephone [facility] [address] [place] [address] Berenice Yoder NP [address] [place] [address] Appointment Request Social History Tobacco Use Types [...] they stated that he needs a [employer]ing Equipment Operator advised pt that it would be towards the end of September and pt would like it as soon as possible. If any questions contact pt at [phone] documented in this encounter Plan of Treatment Upcoming Encounters Date Type Department Care Team (Late st Contact Info) Description 06/25/2025 2:15 PM EDT Office Visit [facility] [address] [place] [address] Carmencita Puga [address] [place] [address] documented as of this encounter Visit Diagnoses Not on filedocumented in this encounter Additional Health Concerns Assessment Noted Time PHQ-9 Depression Total Score: 0 11/01/19 24 3:16 PM EST documented as of this encounter Care Teams Scooper Relationship Specialty Start Date End Date Berenice Yoder NP [address] [place] [address] PCP - General Family Medicine 06/13/23 documented as of this encounter
--- OUTSIDE RECORDS SUMMARY | 2025-05-29 18:53 | XMS_ITS | Encounter Summary ---
Author Organization [employer] Address [address] [place] [address] Care Team Providers Care Communications Consultant Name Role Phone Berenice Yoder NP Primary Care Provider [phone] Reason for Visit * Reason Onset Date Comments Nurse Triage 05/29/2025 Encounter Details Date Type Department Care Team ([facility] st Contact Info) Description 05/29/2025 Telephone [facility] [address] [place] [address] Berenice Yoder NP [address] [place] [address] Nurse Triage Social History Tobacco Use Types Packs/Day Years [...] the past 12 months, has t he [employer], gas, oil or water [employer] threatened to shut off services in your [...] encounter Miscellaneous Notes * Telephone Encounter - Faina Stevenson RN - 05/29/2025 12:44 PM EDT called pt to triage, spoke to pt. pt states about 1 week ago, had a liver biopsy and having some concerns. pt states sharp pain over the site, cramping feeling, and mild sob. advised pt that could berelated to the biopsy and to call that office for guidance. pt then states he called the office butwas referred back to PCP. pt denies any site redness, significant bruising, fevers, chills, severe or sustained sob, or other associated symptoms. advised that the walk in is open, however if severe pain, significant sob, would recommend the ER for evaluation due to his recent procedure and possible complications. pt speaking in full sentences, without significant pausing or distress. advised if he comes here, that if the provider is concerned enough, he may send him to the ER anyway for evaluation. pt understands and agrees with plan. insurance verified. Protocol Used: Chest Pain (Adult) Protocol-Based Disposition: Go to ED Now Positive Triage Question: * Post procedure chest pain * All higher-acuity triage questions were negative Care Advice Discussed: * Reasons To Call Back - Chest pain increases in frequency, duration or severity - Chest pain lasts over 5 minutes - Chest pains persist over 3 days - Difficulty breathing or unusual sweating occurs - Fever over 100.4 F (38.0 C) - You become worse * Telephone Encounter - Helen Antonio - 05/29/2025 12:24 PM EDT Symptom: Chest Pain - Adult Outcome: Transfer to a nurse or provider NOW! Reason: Severe pain now The caller accepted this outcome. Contact pt at [phone] documented in this encounter Plan of Treatment Upcoming Encounters Date Type Department Care Team (Late st Contact Info) Description 06/25/2025 2:15 PM EDT Office Visit [facility] [address] [place] [address] Vivien, Carmencita [address] [place] [address] documented as of this encounter Visit Diagnoses Not on filedocumented in this encounter Additional Health Concerns Assessment Noted Time PHQ-9 Depression Total Score: 0 11/01/19 24 3:16 PM EST documented as of this encounter Care Teams Communications Consultant Relationship Specialty Start Date End Date Berenice Yoder NP [address] [place] [address] PCP - General Family Medicine 06/13/23 documented as of this encounter
--- OUTSIDE RECORDS SUMMARY | 2025-05-29 18:53 | XMS_ITS | Encounter Summary ---
Author Organization [employer] Address [address] [place] [address] Care Team Providers Care Consulting Technical Director Name Role Phone Yeisonaggie Berenice DAVI Primary Care Provider [phone] Encounter Details Date Type Department Care Team ([facility] st Contact Info) Description 05/21/2025 Orders Only GENERIC EXTERNAL DATA DEPARTMENT Provider, [...] Description 06/25/2025 2:15 PM EDT Office Visit [facility] [address] [place] [address] Vivien, Carmencita [address] [place] [address] documented as of this encounter Procedures Procedure Name Priority Date/Time Associated Diagnosis Comments IRON STAIN (NON ORDERABLE) Routine 05/21/2025 3:33 PM EDT documented in this encounter Results * Iron Stain (05/21/2025 3:33 PM EDT) 05/21/2025 3:33 PM EDT 05/22/2025 7:30 AM EDT [facility] - 05/29/2025 11:36 AM EDT ----- ------- Name: Kong Diggs Jr Age/Sex: 39/M : 1985 Unit#: [id number] Attend Dr: María Coombs MD Re05/21/25 Status: [facility] Location: [facility] Disch: ----- ------- SPEC : [id number] RECD: 05/22/25 STATUS: KEMAL ONEAL NUM: [id number] KEYANA: 05/21/25-153 [facility] DR: Ganga Keller CLOSING SPECIALIST ENTERED: 05/22/25 SP TYPE: Surgical OTHR DR: María Coombs MD ORDERED: Iron Stain, HE Stain/2, PAS, Reticulin Stain, Trichrome Stain, Acid Fast Stain, Gross Micro L5, IHC, Special st. 2, CK7 Diagnosis Liver, core needle biopsy: - Chronic hepatitis with non-necrotizing granuloma formation, focal bile duct injury and background portal and, focal, lobular chronic inflammation. - Mild steatosis. 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 See description and comment. Comment: Florid duct lesions are not identified. The granulomatous inflammation is quite pronounced; however, it is predominantly lobular based, which is not typical for primary biliary cholangitis (and the patient's normal AMA study is noted). The rare polarizable material may be secondary to the patient's reported IV drug use. The steatosis and eosinophils are consistent with a degree of toxic/metabolic injury. Correlation with the patient's clinical history is necessary. Clinical History Hyperbilirubinemia Microscopic Description Sections have cores of liver tissue with non-necrotizing granulomatous inflammation located predominantly in the lobules and focally involving the portal areas. No mycobacteria or fungi are identified, supported by AFB and PAS stains, respectively. Background chronic inflammation comprised of lymphocytes, plasma cells and eosinophils is present. The parenchyma has mild predominantly macrovesicular steatosis involving approximately 10% of the tissue. Bile ducts are identified with CK7 immunostain and are focally disrupted by the inflammation. Significant iron deposition is not present with iron stain. No intracytoplasmic PAS positive material is identified. The hepatic plates have normal architecture with reticulin stain. Increased portal and sinusoidal fibrosis is present with bridging and focal nodule formation on trichrome stain. Rare polarizable material is identified. Material Received 4 18g core samples from liver CONTINUED ON NEXT PAGE ----- ------- Name: Kong Diggs Jr Age/Sex: 39/M : 1985 Unit#: [id number] Attend Dr: María Coombs MD Re05/21/25 Status: [facility] Location: [facility] Disch: ----- ------- SPEC : [id number] RECD: 05/22/25 STATUS: KEMAL ONEAL NUM: [id number] KEYANA: 05/21/25-1533 [facility] DR: Ganga Keller CLOSING SPECIALIST ENTERED: 05/22/25 SP TYPE: Surgical OTHR DR: María Coombs MD ORDERED: Iron Stain, HE Stain/2, PAS, Reticulin Stain, Trichrome Stain, Acid Fast Stain, Gross Micro L5, IHC, Special st. 2, CK7 Gross Description Received in formalin labeled liver core are four lacey thin and delicate cylindrical threads of tissue ranging from 1.5 to 1.7 cm in length, submitted in toto in a cassette labeled A. CEDS This case was reviewed intradepartmentally. Special studies ordered and performed: Immunostain for CK7; iron, reticulin, trichrome and PAS stains; AFB stain IHC S/NG Disclaimer NOTE: Unless otherwise stated, all tissue is formalin-fixed and paraffin-embedded. Some or all of the immunohistochemical tests reported herein may have been developed and their performance characteristics determined by [facility]. They have not been cleared or approved by the U.S. Food and Drug Administration (FDA). However, the FDA has determined that such clearance or approval is not necessary. This laboratory is certified under the Clinical Laboratory Improvement Amendments of 1988 (CLIA) as qualified to perform high complexity clinical laboratory testing. Copies To: Ganga Keller CLOSING SPECIALIST [address] [id number] María Coombs MD [facility] [address] [place] [address] [email or web address] ----- ------- Signed (signature on file) Cody Avalos MD 05/29/25 1136 ----- ------- END OF REPORT us Generic External Data Provider HISTORICAL/NON OR DERABLE LABS Final Result [facility] [address] [place] [address] [phone] documented in this encounter Visit Diagnoses Not on filedocumented in this encounter Additional Health Concerns Assessment Noted Time PHQ-9 Depression Total Score: 0 11/01/19 24 3:16 PM EST documented as of this encounter Care Teams Consulting Technical Director Relationship Specialty Start Date End Date Berenice Yoder NP [address] [place] [address] PCP - General Family Medicine 06/13/23 documented as of this encounter
--- OUTSIDE RECORDS SUMMARY | 2025-05-29 18:53 | XMS_ITS | Clinical Summary ---
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 Name Role Phone Beba Berenice TOMLINSON Primary Care Provider [phone] Allergies Active Allergy Reactions Criticality Noted Date [...] Encounters Date Type Department Care Team Description 05/29/2025 Orders Only [facility] External Provider, [facility] 05/29/2025 Telephone [facility] [address] [place] [address] Berenice Yoder NP Nurse Triage 05/21/2025 Orders Only GENERIC EXTERNAL DATA DEPARTMENT Provider, Generic External Data 05/15/2025 Orders Only GENERIC EXTERNAL DATA DEPARTMENT Provider, Generic External Data 05/01/2025 3:00 PM EDT Office Visit [facility] [address] [place] [address] René Alas DMD 04/24/2025 Travel 03/26/2025 3:00 PM EDT Office Visit [facility] [address] [place] [address] René Alas DMD from Last 3 Months Immunizations Immunization Administration [...] Description 06/25/2025 2:15 PM EDT Office Visit [facility] [address] [place] [address] Vivien, Carmencita [address] [place] [address] Health Maintenance Due Date Last Done Comments [...] 3-dose series) 11/13/2024 09/18/2024, 07/23/2001 COVID-19 Vaccine (1 - 2023-2 5 season) 2025 Influenza Vaccine [...] Procedure Name Priority Date/Time Associated Diagnosis Comments CT ABDOMEN PELVIS W CONTRAST Routine 05/29/2025 6:27 PM EDT CBC WITH AUTO DIFFERENTIAL Routine 05/29/2025 2:51 PM EDT LIPASE Routine 05/29/2025 2:51 PM EDT MAGNESIUM Routine 05/29/2025 2:51 PM EDT BASIC METABOLIC PANEL Routine 05/29/2025 2:51 PM EDT HEPATIC FUNCTION PANEL Routine 2:51 PM EDT XR CHEST 2 VIEWS Routine 05/29/2025 2:11 PM EDT IRON STAIN (NON ORDERABLE) Routine 05/21/2025 3:33 PM EDT US GUIDED NEEDLE LIVER BIOPSY Routine 05/21/2025 2:26 PM EDT PROTHROMBIN TIME-INR Routine 05/15/2025 10:08 [...] Recently Relevant to Health Maintenance Results * CT Abdomen Pelvis w/ Contrast (05/29/2025 6:27 PM EDT) Only the most recent of2 resultswithin the time period is included. Anatomical Region Laterality Modality Body, Pelvis, Abdomen Computed T omography 05/29/2025 6:27 PM EDT Narrative 05/29/2025 6:29 PM EDT [address] [address] [address] Scan Report Signed Patient: Kong Diggs Jr MR#: [id number] : 1985 Acct:[id number] Age/Sex: 39 / M ADM Date: 05/29/25 Loc: .ED Attending Dr: Ordering Physician: Jonathon Leos DO Date of Service: 05/29/25 Procedure(s): CT abdomen pelvis w IV con Accession Number(s): [id number] cc: [facility]; Jonathon Leos DO Report Number: [id number]: Total DLP = 872.00 mGy-cm Reason for Exam: s/p liver biopsy, has pain CLINICAL HISTORY: s p liver biopsy, has pain CT abdomen and pelvis with IV contrast. COMPARISON: CT abdomen and pelvis dated 05/29/25 at 17:27 EDT FINDINGS: Minimal atelectasis versus scarring along the lung bases. Liver is enlarged with right lobe measuring 24.7 cm. No focal hepatic lesion. No perihepatic edema or evidence of laceration. No evidence of active hemorrhage within the liver. Gallbladder is contracted. Spleen is enlarged measuring 19.4 cm in length. Normal pancreas. Normal adrenal glands. Symmetric renal enhancement. No hydronephrosis. Left renal cystic lesion of the superior pole measuring up to 1.9 cm. Right lower pole 1 mm renal calculus. Diminutive appendix. Mild colonic stool burden. No bowel obstruction. No mesenteric or retroperitoneal lymphadenopathy. Normal abdominal aorta. Normal appearance of the urinary bladder. No inguinal lymphadenopathy. Small fat containing umbilical hernia. No acute fracture or suspicious bone lesion. IMPRESSION: 1. No evidence of acute injury to the liver. No perihepatic edema or evidence of laceration. No evidence for active hemorrhage. 2. Marked hepatosplenomegaly, stable. This document has been electronically signed by: Gigi Mccloud MD on 05/29/2025 18:27:47 Dictated By: Gigi Mccloud MD Signed By: <Electronically signed by Gigi Mccloud MD in OV> 05/29/251828 DD/ 26 TD/TT: 05/29/251826 Knockup Worker: Procedure Note Donotuseinterpreter, Image - 05/29/[address] [place] [address] [address] Scan Report Signed Patient: Kong Diggs [facility]#: [id number] : 1985Acct:[id number] Age/Sex: 39 / MADM Date: 05/29/25 Loc: .ED Attending Dr: Ordering Physician: Jonathon Leos DO Date of Service: 05/29/25 Procedure(s): CT abdomen pelvis w IV con Accession Number(s): [id number] cc: [facility]; Jonathon Leos DO Report Number: [id number]: Total DLP = 872.00 mGy-cm Reason for Exam: s/p liver biopsy, has pain CLINICAL HISTORY: s p liver biopsy, has pain CT abdomen and pelvis with IV contrast. COMPARISON: CT abdomen and pelvis dated 05/29/25 at 17:27 EDT FINDINGS: Minimal atelectasis versus scarring along the lung bases. Liver is enlarged with right lobe measuring 24.7 cm. No focal hepatic lesion. No perihepatic edema or evidence of laceration. No evidence of active hemorrhage within the liver. Gallbladder is contracted. Spleen is enlarged measuring 19.4 cm in length. Normal pancreas. Normal adrenal glands. Symmetric renal enhancement. No hydronephrosis. Left renal cystic lesion of the superior pole measuring up to 1.9 cm. Right lower pole 1 mm renal calculus. Diminutive appendix. Mild colonic stool burden. No bowel obstruction. No mesenteric or retroperitoneal lymphadenopathy. Normal abdominal aorta. Normal appearance of the urinary bladder. No inguinal lymphadenopathy. Small fat containing umbilical hernia. No acute fracture or suspicious bone lesion. IMPRESSION: 1. No evidence of acute injury to the liver. No perihepatic edema or evidence of laceration. No evidence for active hemorrhage. 2. Marked hepatosplenomegaly, stable. This document has been electronically signed by: Gigi Mccloud MD on 05/29/2025 18:27:47 Dictated By: Gigi Mccloud MD Signed By: <Electronically signed by Gigi Mccloud MD in OV> 05/29/251828 DD/ 26 TD/TT: 05/29/251826 Knockup Worker: [facility] External Provider IMG CT PROCEDURES Final Result * (ABNORMAL) CBC auto differential (05/29/2025 2:51 PM EDT) Only the most recent of2 resultswithin the time period is included. White Blood Count 2.7(L) 4.8 - 10.8 X10*3/uL [facility] Red Blood Count 4.68 4.60 - 5.80 X10*6/uL [facility] Hemoglobin 12.5(L) 14.0 - 18.0 g/dl [facility] Hematocrit 37.6(L) 42.0 - 52.0 % [facility] Mean Corpuscular Volume 80.3 80.0 - 98.0 fL [facility] Mean Corpuscular Hemoglobin 26.7(L) 27.0 - 33.0 pg [facility] Mean Corpuscular HGB Conc 33.2 31.0 - 36.0 g/dl [facility] Red Cell Distribution Width 14.5 11.0 - 16.0 % [facility] Platelet Count 303 160 - 400 X10*3/uL [facility] Mean Platelet Volume 8.9(L) 9.4 - 12.4 fL [facility] Neutrophils Percent Auto 43.5(L) 45 - 73 % [facility] Imm Gran Pct Auto 0.0 0.0 - 0.4 % [facility] Lymphocytes Percent Auto 40.6(H) 20 - 40 % [facility] Monocytes Percent Auto 12.2(H) 2 - 11 % [facility] Eosinophils Percent Auto 3.0 0 - 4 % [facility] Basophils Percent Auto 0.7 0 - 2 % [facility] NRBC Pct Auto 0.0 0.0 - 0.2 /100WBC [facility] Neutrophils Absolute Auto 1.2(L) 2.0 - 8.3 x10*3/uL [facility] Imm Gran Abs Auto 0.00 0.00 - 0.03 X10*3/uL [facility] Lymphocytes Absolute Auto 1.1(L) 1.2 - 4.9 X10*3/uL [facility] Monocytes Absolute Auto 0.3 0.1 - 1.2 X10*3/uL [facility] Eosinophils Absolute Auto 0.1 0.0 - 0.4 X10*3/uL [facility] Basophils Absolute Auto 0.0 0.0 - 0.2 X10*3/uL [facility] NRBC Abs Auto 0.000 0.0 - 0.012 X10*3/uL [facility] 05/29/2025 2:51 PM EDT 05/29/2025 2:53 PM EDT us Generic External Data Provider LAB BLOOD ORDERAB LES Final Result [facility] [address] [place] [address] [phone] * Magnesium (05/29/2025 2:51 PM EDT) Only the most recent of2 resultswithin the time period is included. Magnesium 2.1 1.6 - 2.6 mg/dL [facility] 05/29/2025 2:51 PM EDT 05/29/2025 2:53 PM EDT Generic External Data Provider LAB BLOOD ORDERAB LES Final Result Performing Organization Address City/[facility]/ZIP Co de Phone Number [facility] [address] [place] [phone] * Lipase (05/29/2025 2:51 PM EDT) Only the most recent of2 resultswithin the time period is included. Lipase 24 8 - 78 U/L [facility] 05/29/2025 2:51 PM EDT 05/29/2025 2:53 PM EDT Generic External Data Provider LAB BLOOD ORDERAB LES Final Result Performing Organization Address [facility] de Phone Number [facility] [address] [place] [phone] * (ABNORMAL) Hepatic Function Panel (05/29/2025 2:51 PM EDT) Only the most recent of2 resultswithin the time period is included. Bilirubin, Total 5.6(H) 0.0 - 1.0 mg/dL [facility] Comment:Mild Icterus. Bilirubin, Direct 4.0(H) 0.0 - 0.5 mg/dL [facility] Comment:Mild Icterus. Aspartate Amino Transferase 162(H) 5 - 37 U/L [facility] Comment:Slight Hemolysis.Int erpret result with caution. Alanine Aminotransferase 105(H) 0 - 40 U/L [facility] Total Protein 8.7(H) 6.5 - 8.0 g/dL [facility] Albumin Level 3.7 3.5 - 5.0 g/dL [facility] Alkaline Phosphatase 291(H) 39 - 117 U/L [facility] 05/29/2025 2:51 PM EDT 05/29/2025 2:53 PM EDT Generic External Data Provider LAB BLOOD ORDERAB LES Final Result Performing Organization Address City/[facility]/ZIP Co de Phone Number [facility] [address] [place] [address] [phone] * Basic Metabolic Panel (05/29/2025 2:51 PM EDT) Only the most recent of2 resultswithin the time period is included. Sodium 138 135 - 145 mmol/L [facility] Potassium 4.3 3.3 - 5.1 mmol/L [facility] Comment:Slight Hemolysis.Int erpret result with caution. Chloride 102 96 - 108 mmol/L [facility] Carbon Dioxide 28 22 - 29 mmol/L [facility] Anion Gap 12 12 - 20 [facility] Urea Nitrogen (BUN) 11 9 - 16 mg/dL [facility] Creatinine, Serum 1.05 0.5 - 1.4 mg/dL [facility] Comment:Mild Icterus.Interpr et result with caution. Creatinine Clr Calc Pharmacy 110.2 [facility] Comment:eGFR (calculated fro m the MDRD study equation) and eCrCl(calculated from the Cockcroft-Gault equation) are based ondifferent parameters and may not yield comparable results.If eCrCl result is absurd, please check patient'sheight/weight. Estimated Glomerular Filt Rate >60 [facility] Comment:Chronic Kidney Disea se: Estimated GFR < 60 mL/min/[id number] Kidney Disease: Estimated GFR < 15 mL/min/1.73m2 Glucose 103 60 - 115 mg/dL [facility] Calcium 9.2 8.4 - 10.2 mg/dL [facility] 05/29/2025 2:51 PM EDT 05/29/2025 2:53 PM EDT us Generic External Data Provider LAB BLOOD ORDERAB LES Final Result Performing Organization Address [facility]/ZIP Co de Phone Number [facility] [address] [place] [phone] * XR Chest 2 Views (05/29/2025 2:11 PM EDT) Anatomical Region Laterality Modality Chest Radiographic Nicci ging 05/29/2025 2:11 PM EDT Narrative 05/29/2025 2:31 PM EDT [address] [address] XRay Report Signed Patient: Kong Diggs Jr MR#: [id number] : 1985 Acct:[id number] Age/Sex: 39 / M ADM Date: 05/29/25 Loc: HO.ED Attending Dr: Ordering Physician: Leonila Mitchell Date of Service: 05/29/25 Procedure(s): XR chest 2V Accession Number(s): [id number] cc: [facility]; Leonila Mitchell Reason for Exam: SOB, recent liver biopsy EXAMINATION: XR CHEST CLINICAL INFORMATION: SOB, recent liver biopsy COMPARISON: 06/20/2016 TECHNIQUE: 2 views of the chest were obtained. FINDINGS: There are linear densities in the left greater than right lung base. Right heart border is secured by a focal opacity. There is no pleural effusion. Heart size is normal. Lungs clear otherwise. XR/XR chest 2V IMPRESSION: Possible right middle lobe pneumonia. Linear densities at lung base that probably represents atelectasis. Electronically signed by: Jack Goyal MD 05/29/2025 02:28 PM EDT Dictated By: Jack Goyal MD Signed By: <Electronically signed by Jack Goyal MD in OV> 05/29/25 1428 DD/ 1411 TD/TT: 05/29/25 1414 Knockup Worker: Procedure Note Donotuseinterpreter, Image - 05/29/[address] [address] XRay Report Signed Patient: Kong Diggs JrMR#: [id number] : 1985Acct:[id number] Age/Sex: 39 / MADM Date: 05/29/25 Loc: HO.ED Attending Dr: Ordering Physician: Leonila Mitchell Date of Service: 05/29/25 Procedure(s): XR chest 2V Accession Number(s): [id number] cc: [facility]; Leonila Mitchell Reason for Exam: SOB, recent liver biopsy EXAMINATION: XR CHEST CLINICAL INFORMATION: SOB, recent liver biopsy COMPARISON: 06/20/2016 TECHNIQUE: 2 views of the chest were obtained. FINDINGS: There are linear densities in the left greater than right lung base. Right heart border is secured by a focal opacity. There is no pleural effusion. Heart size is normal. Lungs clear otherwise. XR/XR chest 2V IMPRESSION: Possible right middle lobe pneumonia. Linear densities at lung base that probably represents atelectasis. Electronically signed by: Jack Goyal MD 05/29/2025 02:28 PM EDT Dictated By: Jack Goyal MD Signed By: <Electronically signed by Jack Goyal MD in OV> 05/29/25 1428 DD/ 1411 TD/TT: 05/29/25 1414 Knockup Worker: [facility] External Provider IMG XR PROCEDURES Final Result * Iron Stain (05/21/2025 3:33 PM EDT) 05/21/2025 3:33 PM EDT 05/22/2025 7:30 AM EDT [facility] - 05/29/2025 11:36 AM EDT ----- ------- Name: Kong Diggs Jr Age/Sex: 39/M : 1985 Unit#: [id number] Attend Dr: María Coombs MD Re05/21/25 Status: [facility] Location: [facility] Disch: ----- ------- SPEC : [id number] RECD: 05/22/25 STATUS: KEMAL ONEAL NUM: [id number] KEYANA: 05/21/25-[address] [facility] [address]: Ganga Keller LIGHTOUT EXAMINER ENTERED: 05/22/25 SP TYPE: Surgical OTHR DR: [...] Diggs Jr Age/Sex: 39/M : 1985 Unit#: [id number] Attend Dr: María Coombs MD Re05/21/25 Status: [facility] Location: [facility] Disch: ----- ------- SPEC : [id number] RECD: 05/22/25 STATUS: KEMAL ONEAL NUM: [id number] KEYANA: 05/21/25-[address] [facility] [address]: Ganga Keller LIGHTOUT EXAMINER ENTERED: 05/22/25 SP TYPE: Surgical OTHR DR: [...] developed and their performance characteristics determined by [facility]. They have not been cleared or approved by the U.S. Food and Drug Administration (FDA). However, the FDA has determined that such clearance or approval is not necessary. This laboratory is certified under the Clinical Laboratory Improvement Amendments of 1988 (CLIA) as qualified to perform high complexity clinical laboratory testing. Copies To: Ganga Keller LIGHTOUT EXAMINER [address] [place] [address] María Coombs MD [facility] [address] [place] [address] [email or web address] ----- ------- Signed (signature on file) Cody Avalos MD 05/29/25 1136 ----- ------- END OF REPORT us Generic External Data Provider HISTORICAL/NON OR DERABLE LABS Final Result [facility] [address] [place] [address] [phone] * US Guided Needle Liver Biopsy (05/21/2025 2:26 PM EDT) Anatomical Region Laterality Modality Liver Ultrasound 05/21/2025 2:26 PM EDT Narrative 05/22/2025 11:39 AM EDT [address] [address] Ultrasound Report Signed Patient: Kong Diggs Jr MR#: [id number] : 1985 Acct:[id number] Age/Sex: 39 / M ADM Date: 05/21/25 Loc: HO.[facility] Attending Dr: María Coombs MD Ordering Physician: María Coombs MD Date of Service: 05/21/25 Procedure(s): US biopsy liver Accession Number(s): [id number] cc: [facility]; María Coombs MD Reason for Exam: R17 - Unspecified jaundice Ultrasound-guided liver biopsy History: Hyperbilirubinemia Procedure: Ultrasound-guided liver biopsy Risks and benefits and possible complications were discussed with the patient and consent form was signed. The abdomen was prepped and draped in usual sterile fashion. 1% lidocaine was used for anesthesia. A 17-gauge coaxial needle was inserted through the skin and soft tissues and into the right lobe of the liver. A total of 4, 18-gauge cores were performed. Permanent ultrasound images were archived. 2 Gelfoam torpedoes were inserted through the coaxial and administered into the biopsy tract and at the level of the capsule. The needle was then removed. The specimens were placed in formalin and sent to pathology. The patient tolerated the procedure well. The procedure was performed under moderate sedation with a dedicated nurse for monitoring of vital signs. Medications: Fentanyl, Versed and Lidocaine Moderate sedation time: 20 min This procedure was performed by Ganga Keller NP and directly supervised by Josh Wyman M.D.. US/US biopsy liver Impression: Ultrasound-guided liver biopsy Electronically signed by: Josh Wyman MD 05/22/2025 11:36 AM EDT Workstation: [id number] Dictated By: Ganga Keller NP Signed By: <Electronically signed by Ganga Keller in OV> 05/22/25 1136 <Electronically signed by Josh Wyman MD in OV> 05/22/25 1139 DD/ 1426 TD/TT: 05/21/25 1515 Knockup Worker: Procedure Note Donotyudiinterpreter, Image - 05/22/[address] [address] Ultrasound Report Signed Patient: Kong Diggs#: [id number] : 1985Acct:[id number] Age/Sex: 39 / MADM Date: 05/21/25 Loc: HO.[facility] Attending Dr: María Coombs MD Ordering Physician: María Coombs MD Date of Service: 05/21/25 Procedure(s): US biopsy liver Accession Number(s): [id number] cc: [facility]; María Coombs MD Reason for Exam: R17 - Unspecified jaundice Ultrasound-guided liver biopsy History: Hyperbilirubinemia Procedure: Ultrasound-guided liver biopsy Risks and benefits and possible complications were discussed with the patient and consent form was signed. The abdomen was prepped and draped in usual sterile fashion. 1% lidocaine was used for anesthesia. A 17-gauge coaxial needle was inserted through the skin and soft tissues and into the right lobe of the liver. A total of 4, 18-gauge cores were performed. Permanent ultrasound images were archived. 2 Gelfoam torpedoes were inserted through the coaxial and administered into the biopsy tract and at the level of the capsule. The needle was then removed. The specimens were placed in formalin and sent to pathology. The patient tolerated the procedure well. The procedure was performed under moderate sedation with a dedicated nurse for monitoring of vital signs. Medications: Fentanyl, Versed and Lidocaine Moderate sedation time: 20 min This procedure was performed by Ganga Keller NP and directly supervised by Josh Wyman M.D.. US/US biopsy liver Impression: Ultrasound-guided liver biopsy Electronically signed by: Josh Wyman MD 05/22/2025 11:36 AM EDT Workstation: [id number] Dictated By: Ganga Keller NP Signed By: <Electronically signed by Ganga Keller in OV> 05/22/25 1136 <Electronically signed by Josh Wyman MD in OV> 05/22/25 1139 DD/ 1426 TD/TT: 05/21/25 1515 Knockup Worker: [facility] External Provider IMG US PROCEDURES Edited Result - Final * Ethanol (05/15/2025 10:08 PM EDT) ETHANOL (MG/DL) IN SER/PLAS <10 mg/dL [facility] Comment:Serum/plasma ethanol results are to be used formedical/treatment purposes only. 05/15/2025 10:0 8 PM EDT 05/15/2025 10:13 PM EDT Generic External Data Provider LAB BLOOD ORDERAB LES Final Result Performing Organization Address [facility] Co de Phone Number [facility] [address] [place] [phone] * Prothrombin Time-INR (05/15/2025 10:08 PM EDT) Prothrombin Time 11.0 10.9 - 12.4 SEC [facility] INTERNATIONAL NORM RATIO 1.0 0.9 - 1.1 [facility] Comment:INTERNATIONAL NORMAL IZED RATIO (INR) [...] ORDERAB LES Final Result Performing Organization Address [facility] Co de Phone Number [facility] [address] [place] [phone] * Lactic Acid (05/15/2025 10:08 PM EDT) Lactic Acid 0.9 0.5 - 2.0 mmol/L [facility] 05/15/2025 10:0 8 PM EDT 05/15/2025 10:13 PM EDT us Generic External Data Provider LAB BLOOD ORDERAB LES Final Result Performing Organization Address [facility] Co de Phone Number [facility] [address] [place] [phone] * (ABNORMAL) Urinalysis, Complete, with Reflex to Culture (05/15/2025 8:16 PM EDT) Color Urine Dark Yellow [facility] Appearance Urine Clear [facility] PH 6.5 5.0 - 9.0 [facility] Glucose Urine UA Negative Negative mg/dL [facility] Urine Blood Negative Negative [facility] Specific [place] - Urine >=1.030(H) 1.005 - 1.025 [facility] Urine Protein 30 (1+)(A) Neg-Trace mg/dL [facility] Urine Ketones Negative Negative mg/dL [facility] Nitrite Urine Negative Negative [facility] Leukocyte Esterase Urine Negative Negative [facility] RBC Urine 0-2 0 - 2 /HPF [facility] Urine WBC 0-5 0 - 5 /HPF [facility] Urine Squamous Epithelial Cell 0-2 0 - 2 /HPF [facility] Urine Bacteria None Seen None Seen [facility] Hyaline Casts, Urine 0-2 0 - 2 /LPF [facility] 05/15/2025 8:16 PM EDT 05/15/2025 8:18 PM EDT Narrative [facility] - 05/15/2025 9:40 PM EDT Urine, Clean Catch us Generic External Data Provider LAB URINE ORDERAB LES Final Result Performing Organization Address [facility] Co de Phone Number [facility] [address] [place] [phone] * (ABNORMAL) Urinalysis w/reflex microscopic (05/15/2025 8:16 PM EDT) Color Urine Dark Yellow [facility] Appearance Urine Clear [facility] PH 6.5 5.0 - 9.0 [facility] Glucose Urine UA Negative Negative mg/dL [facility] Urine Blood Negative Negative [facility] Specific [place] - Urine >=1.030(H) 1.005 - 1.025 [facility] Urine Protein 30 (1+)(A) Neg-Trace mg/dL [facility] Urine Ketones Negative Negative mg/dL [facility] Nitrite Urine Negative Negative [facility] Leukocyte Esterase Urine Negative Negative [facility] 05/15/2025 8:16 PM EDT 05/15/2025 8:18 PM EDT Narrative [facility] - 05/15/2025 8:41 PM EDT Urine, Clean Catch us Generic External Data Provider LAB URINE ORDERAB LES Final Result Performing Organization Address [facility]/ZIP Co de Phone Number [facility] [address] [place] [phone] * Ammonia, Plasma (05/15/2025 7:24 PM EDT) Ammonia (P) 46 13 - 55 umol/L [facility] Comment:Slight Hemolysis.Int erpret result with caution. 05/15/2025 7:24 PM EDT 05/15/2025 7:37 PM EDT us Generic External Data Provider LAB BLOOD ORDERAB LES Final Result Performing Organization Address [facility] Co de Phone Number [facility] [address] [place] [phone] * Mononucleosis Test, Qualitative (05/15/2025 7:15 PM EDT) Monotest Negative Negative [facility] 05/15/2025 7:15 PM EDT 05/15/2025 7:37 PM EDT us Generic External Data Provider LAB BLOOD ORDERAB LES Final Result Performing Organization Address City/State/[facility] Co de Phone Number [facility] [address] [place] [phone] * US Abdomen Limited (05/15/2025 6:09 PM EDT) Anatomical Region Laterality Modality Abdomen Ultrasound 05/15/2025 6:09 PM EDT Narrative 05/15/2025 6:10 PM EDT [address] [address] Ultrasound Report Signed Patient: Kong Diggs Jr MR#: [id number] : 1985 Acct:[id number] Age/Sex: 39 / M ADM Date: 05/15/25 Loc: HO.ED Attending Dr: Ordering Physician: Sofia Milan Date of Service: 05/15/25 Procedure(s): US abdomen limited Accession Number(s): [id number] cc: [facility]; Sofia Milan Reason for Exam: elevated bili CLINICAL HISTORY: elevated bili --- Additional Notes or Special Instructions: look at GB, liver, pancreas, ducts US abdomen limited Comparison: CT/SD/SR - CT ABDOMEN WITHOUT THEN WITH IV [...] in OV> 05/15/251809 DD/ 08 TD/TT: 05/15/251808 Knockup Worker: Procedure Note Gina, Image - 05/15/2025 [place] [address] Ultrasound Report Signed Patient: Kong Diggs [facility]#: [id number] : 1985Acct:[id number] Age/Sex: 39 / MADM Date: 05/15/25 Loc: HO.ED Attending Dr: Ordering Physician: Sofia Milan Date of Service: 05/15/25 Procedure(s): US abdomen limited Accession Number(s): [id number] cc: [facility]; Sofia Milan Reason for Exam: elevated bili CLINICAL HISTORY: elevated bili --- Additional Notes or SpecialInstructions: look at GB, liver, pancreas, ducts US abdomen limited Comparison: CT/SD/SR - CT ABDOMEN WITHOUT THEN WITH IV [...] in OV> 05/15/251809 DD/ 08 TD/TT: 05/15/251808 Knockup Worker: us [facility] External Provider IMG US PROCEDURES Final Result * (ABNORMAL) Creatine Kinase, Total (05/15/2025 4:07 PM EDT) Creatine Kinase Total 29(L) 38 - 174 U/L [facility] 05/15/2025 4:07 PM EDT 05/15/2025 4:10 PM EDT us Generic External Data Provider LAB BLOOD ORDERAB LES Final Result Performing Organization Address City/[facility]/ZIP Co de Phone Number [facility] [address] [place] [phone] [phone] * Acetaminophen level (05/15/2025 4:07 PM EDT) Acetaminophen LAB <3 <30 mcg/mL [facility] 05/15/2025 4:07 PM EDT 05/15/2025 4:10 PM EDT Generic External Data Provider LAB BLOOD ORDERAB LES Final Result Performing Organization Address City/[facility] Co de Phone Number [facility] [address] [place] [address] [phone] * (ABNORMAL) Lipid Panel, Standard (09/25/2024 11:13 AM EST) Triglycerides 265(H) <150 mg/dL [facility] Comment:Desirable Triglyceri de: less than 150 mg/dLBorderline High Triglyceride 150-199 mg/dLHigh Triglyceride: 200-499 mg/dLVery High Triglyceride: greater than or equal to 5OO mg/dL Cholesterol 201(H) <200 mg/dL [facility] Comment:Desirable Cholestero l: less than 200 mg/dLBorderline High Cholesterol: 200-239 mg/dLHigh Cholesterol: greater than 239 mg/dL LDL Cholesterol Calculated 120(H) <100 mg/dL [facility] Comment:Desirable LDL: less than 100 mg/dLNear Optimal/Above Optimal LDL: 110- 129 mg/dLBorderline High LDL: 130-159 mg/dLHigh LDL: 160-189 mg/dLVery High LDL: greater than or equal to 190 mg/dL HDL Cholesterol 28(L) >40 mg/dL [facility] Comment:Desirable HDL: great er than 40 mg/dL Note: This HDL assay may give artificially low results in patients with liver disease. Blood Venous blood specimen / Unknown 09/25/2024 11:13 AM EST 09/25/2024 12:05 PM EST Berenice Yoder NP LAB BLOOD ORDERABLES Final Resu lt [facility] [address] [place] [phone] [phone] from Last 3 Months or Most Recently Relevant to Health Maintenance Insurance [facility] C3 DENTAL-[facility] MEDICAID STAND ADULT Care Teams Lumber Press Operator Relationship Specialty Start Date End Date Berenice Yoder NP [address] [place] [phone] PCP - General Family Medicine 06/13/23
--- OUTSIDE RECORDS SUMMARY | 2025-05-29 18:53 | XMS_ITS | Encounter Summary ---
Author Organization [employer] [facility] Address [address] [place] [address] [address] [place] [address] Care Team Providers Care Cigarette Examiner Name Role Phone Shell PiperP Primary Care Provider Berenice Lopez NP Primary Care Provider [phone] Encounter Details Date Type Department Care Team (Latest Contact Info) Description 06/08/2020 Abstract [facility] CONVERSIONS Dental, Provider, DDS Social History [...] Description 06/25/2025 2:15 PM EDT Office Visit [facility] ADULT DENTAL [address] [place] [address] Vivien, Carmencita [address] [place] [address] documented as of this encounter Visit Diagnoses Not on filedocumented in this encounter Care Teams Cigarette Examiner Relationship Specialty Start Date End Date Shell Piper FNP PCP - General Family Medicine 06/28/21 06/12/23 Berenice Yoder NP [address] [place] [address] PCP - General Family Medicine 06/13/23 documented as of this encounter
--- OUTSIDE RECORDS SUMMARY | 2025-05-29 18:53 | XMS_ITS | Encounter Summary ---
Author Organization [employer] Address [address] [facility] 7[address] [place] [address] Care Team Providers Care Evaluation Assistant Name Role Phone Beba Berenice TOMLINSON Primary Care Provider [phone] Encounter Details Date Type Department Care Team ([facility] st Contact Info) Description 05/29/2025 Orders Only [facility] External Provider, [facility] Social History Tobacco Use Types Packs/Day Years [...] 06/25/2025 2:15 PM EDT Office Visit [facility] ADULT DENTAL [address] [place] [address] Vivien, Carmencita [address] [place] [address] documented as of this encounter Procedures Procedure Name Priority Date/Time Associated Diagnosis Comments CT ABDOMEN PELVIS W CONTRAST Routine 05/29/2025 6:27 PM EDT CBC WITH AUTO DIFFERENTIAL Routine 05/29/2025 2:51 PM EDT MAGNESIUM Routine 05/29/2025 2:51 PM EDT LIPASE Routine 05/29/2025 2:51 PM EDT HEPATIC FUNCTION PANEL Routine 05/29/2025 2:51 PM EDT BASIC METABOLIC PANEL Routine 05/29/2025 2:51 PM EDT XR CHEST 2 VIEWS Routine 05/29/2025 2:11 PM EDT documented in this encounter Results * CT Abdomen Pelvis w/ Contrast (05/29/2025 6:27 PM EDT) Anatomical Region Laterality Modality Body, Pelvis, Abdomen Computed T omography 05/29/2025 6:27 PM EDT Narrative 05/29/2025 6:29 PM EDT [place] [address] CT Scan Report Signed Patient: Kong Diggs Jr MR#: [id number] : 1985 Acct:[id number] Age/Sex: 39 / M ADM Date: 05/29/25 Loc: HO.ED Attending Dr: Ordering Physician: Jonathon Leos DO Date of Service: 05/29/25 Procedure(s): CT abdomen pelvis w IV con Accession Number(s): [id number] cc: [facility]; Jonathon Leos DO Report Number: [id number]: Total DLP = 872.00 mGy-cm Reason for [...] signed by Gigi Mccloud MD in OV> 05/29/25 1829 DD/ 26 TD/TT: 05/29/251826 Hospital Clinic Assistant: Procedure Note Donotuseinterpreter, Image - 05/29/[address] [address] [address] Scan Report Signed Patient: Kong Diggs [facility]#: [id number] : 1985Acct:[id number] Age/Sex: 39 / MADM Date: 05/29/25 Loc: HO.ED Attending Dr: Ordering Physician: Jonathon Leos DO Date of Service: 05/29/25 Procedure(s): CT abdomen pelvis w IV con Accession Number(s): [id number] cc: [facility]; Jonathon Leos DO Report Number: [id number]: Total DLP = 872.00 mGy-cm Reason for [...] in OV> 05/29/251828 DD/ 26 TD/TT: 05/29/251826 Hospital Clinic Assistant: [facility] External Provider IMG CT PROCEDURES Final Result * (ABNORMAL) CBC auto differential (05/29/2025 2:51 PM EDT) White Blood Count 2.7(L) 4.8 - 10.8 X10*3/uL [facility] Red Blood Count 4.68 4.60 - 5.80 X10*6/uL [facility] Hemoglobin 12.5(L) 14.0 - 18.0 g/dl [facility] Hematocrit 37.6(L) 42.0 - 52.0 % [facility] Mean Corpuscular Volume 80.3 80.0 - 98.0 fL [facility] Mean Corpuscular Hemoglobin 26.7(L) 27.0 - 33.0 pg [facility] Mean Corpuscular HGB Conc 33.2 31.0 - 36.0 g/dl [facility] Red Cell Distribution Width 14.5 11.0 - 16.0 % [facility] Platelet Count 303 160 - 400 X10*3/uL [facility] Mean Platelet Volume 8.9(L) 9.4 - 12.4 fL [facility] Neutrophils Percent Auto 43.5(L) 45 - 73 % [facility] Imm Gran Pct Auto 0.0 0.0 - 0.4 % [facility] Lymphocytes Percent Auto 40.6(H) 20 - 40 % [facility] Monocytes Percent Auto 12.2(H) 2 - 11 % [facility] Eosinophils Percent Auto 3.0 0 - 4 % [facility] Basophils Percent Auto 0.7 0 - 2 % [facility] NRBC Pct Auto 0.0 0.0 - 0.2 /100WBC [facility] Neutrophils Absolute Auto 1.2(L) 2.0 - 8.3 x10*3/uL [facility] Imm Gran Abs Auto 0.00 0.00 - 0.03 X10*3/uL [facility] Lymphocytes Absolute Auto 1.1(L) 1.2 - 4.9 X10*3/uL [facility] Monocytes Absolute Auto 0.3 0.1 - 1.2 X10*3/uL [facility] Eosinophils Absolute Auto 0.1 0.0 - 0.4 X10*3/uL [facility] Basophils Absolute Auto 0.0 0.0 - 0.2 X10*3/uL [facility] NRBC Abs Auto 0.000 0.0 - 0.012 X10*3/uL [facility] 05/29/2025 2:51 PM EDT 05/29/2025 2:53 PM EDT us Generic External Data Provider LAB BLOOD ORDERAB LES Final Result Performing Organization Address [facility] Co de Phone Number [facility] [address] [place] [phone] * Lipase (05/29/2025 2:51 PM EDT) Lipase 24 8 - 78 U/L [facility] 05/29/2025 2:51 PM EDT 05/29/2025 2:53 PM EDT us Generic External Data Provider LAB BLOOD ORDERAB LES Final Result Performing Organization Address [facility] Co de Phone Number [facility] [address] [place] [phone] * Magnesium (05/29/2025 2:51 PM EDT) Magnesium 2.1 1.6 - 2.6 mg/dL [facility] 05/29/2025 2:51 PM EDT 05/29/2025 2:53 PM EDT us Generic External Data Provider LAB BLOOD ORDERAB LES Final Result Performing Organization Address City/[facility] Co de Phone Number [facility] [address] [place] [address] [phone] * Basic Metabolic Panel (05/29/2025 2:51 PM EDT) Sodium 138 135 - 145 mmol/L [facility] Potassium 4.3 3.3 - 5.1 mmol/L [facility] Comment:Slight Hemolysis.Int erpret result with caution. Chloride 102 96 - 108 mmol/L [facility] Carbon Dioxide 28 22 - 29 mmol/L [facility] Anion Gap 12 12 - 20 [facility] Urea Nitrogen (BUN) 11 9 - 16 mg/dL [facility] Creatinine, Serum 1.05 0.5 - 1.4 mg/dL [facility] Comment:Mild Icterus.Interpr et result with caution. Creatinine Clr Calc Pharmacy 110.2 [facility] Comment:eGFR (calculated fro m the MDRD study equation) and eCrCl(calculated from the Cockcroft-Gault equation) are based ondifferent parameters and may not yield comparable results.If eCrCl result is absurd, please check patient'sheight/weight. Estimated Glomerular Filt Rate >60 [facility] Comment:Chronic Kidney Disea se: Estimated GFR < 60 mL/min/1.74g1Tzxgpi Kidney Disease: Estimated GFR < 15 mL/min/1.73m2 Glucose 103 60 - 115 mg/dL [facility] Calcium 9.2 8.4 - 10.2 mg/dL [facility] 05/29/2025 2:51 PM EDT 05/29/2025 2:53 PM EDT us Generic External Data Provider LAB BLOOD ORDERAB LES Final Result Performing Organization Address [facility] Co de Phone Number [facility] [address] [place] [phone] [phone] * (ABNORMAL) Hepatic Function Panel (05/29/2025 2:51 PM EDT) Bilirubin, Total 5.6(H) 0.0 - 1.0 mg/dL [facility] Comment:Mild Icterus. Bilirubin, Direct 4.0(H) 0.0 - 0.5 mg/dL [facility] Comment:Mild Icterus. Aspartate Amino Transferase 162(H) 5 - 37 U/L [facility] Comment:Slight Hemolysis.Int erpret result with caution. Alanine Aminotransferase 105(H) 0 - 40 U/L [facility] Total Protein 8.7(H) 6.5 - 8.0 g/dL [facility] Albumin Level 3.7 3.5 - 5.0 g/dL [facility] Alkaline Phosphatase 291(H) 39 - 117 U/L [facility] 05/29/2025 2:51 PM EDT 05/29/2025 2:53 PM EDT us Generic External Data Provider LAB BLOOD ORDERAB LES Final Result Performing Organization Address City/State/[facility] Co de Phone Number [facility] [address] [place] [phone] * XR Chest 2 Views (05/29/2025 2:11 PM EDT) Anatomical Region Laterality Modality Chest Radiographic Nicci ging 05/29/2025 2:11 PM EDT Narrative 05/29/2025 2:31 PM EDT [address] [address] XRay Report Signed Patient: Kong Diggs Jr MR#: [id number] : 1985 Acct:[id number] Age/Sex: 39 / M ADM Date: 05/29/25 Loc: HO.ED Attending Dr: Ordering Physician: Leonila Mitchell Date of Service: 05/29/25 Procedure(s): XR chest 2V Accession Number(s): [id number] cc: [facility]; Leonila Mitchell Reason for Exam: SOB, [...] Jack Goyal MD 05/29/2025 02:28 PM EDT RP Dictated By: Jack Goyal MD Signed By: <Electronically signed by Jack Goyal MD in OV> 05/29/25 1428 DD/ 1411 TD/TT: 05/29/25 1414 Hospital Clinic Assistant: Procedure Note Donotuseinterpreter, Image - 05/29/2025 [place] [address] XRay Report Signed Patient: Kong Diggs [facility]#: [id number] : 1985Acct:[id number] Age/Sex: 39 / MADM Date: 05/29/25 Loc: .ED Attending Dr: Ordering Physician: Leonila Mitchell Date of Service: 05/29/25 Procedure(s): XR chest 2V Accession Number(s): [id number] cc: [facility]; Leonila Mitchell Reason for Exam: SOB, [...] Jack Goyal MD 05/29/2025 02:28 PM EDT RP Dictated By: Jack Goyal MD Signed By: <Electronically signed by Jack Goyal MD in OV> 05/29/25 1428 DD/ 1411 TD/TT: 05/29/25 1414 Hospital Clinic Assistant: [facility] External Provider IMG XR PROCEDURES Final Result documented in this encounter Visit Diagnoses Not on filedocumented in this encounter Additional Health Concerns Assessment Noted Time PHQ-9 Depression Total Score: 0 11/01/19 24 3:16 PM EST documented as of this encounter Care Teams Evaluation Assistant Relationship Specialty Start Date End Date Berenice Yoder NP [address] [place] [address] PCP - General Family Medicine 06/13/23 documented as of this encounter
--- OUTSIDE RECORDS SUMMARY | 2025-05-29 18:54 | XMS_ITS | Encounter Summary ---
Author Organization [employer] Address [address] [facility] [address]t [place] [address] Care Team Providers Care Corporate Representative Name Role Phone Berenice Yodre NP Primary Care Provider [phone] Reason for Visit * Reason Comments Med Refill Encounter Details Date Type Department Care Team (Late Contact Info) Description 08/22/2023 Refill [facility] MEDICINE [address] [place] [phone] Name, MD Dennis [address] [place] [address] Pain Social History Tobacco Use Types Packs/Day [...] Description 06/25/2025 2:15 PM EDT Office Visit [facility] ADULT DENTAL [address] [place] [address] Adarsh Pugaaris [address] [place] [address] documented as of this encounter Visit Diagnoses Diagnosis Pain Generalized pain documented in this encounter Care Teams Corporate Representative Relationship Specialty Start Date End Date Berenice Yoder NP [address] [place] [address] PCP - General Family Medicine 06/13/23 documented as of this encounter
--- OUTSIDE RECORDS SUMMARY | 2025-05-29 18:54 | XMS_ITS | Encounter Summary ---
Author Organization [employer] [facility] Address [address] [place] [address] 7t [place] [address] Care Team Providers Care Town Marshal Name Role Phone Berenice Yoder NP Primary Care Provider [phone] Reason for Visit * Reason Comments Med Refill Encounter Details Date Type Department Care Team (Late Contact Info) Description 06/29/2023 Refill [facility] MEDICINE [address] [place] [address] Shell Piper, SPECIMEN ACCESSIONER Pain Social History Tobacco Use Types Packs/Day [...] Description 06/25/2025 2:15 PM EDT Office Visit [facility] ADULT DENTAL [address] [place] [address] Vivien, Carmencita [address] [place] [address] documented as of this encounter Visit Diagnoses Diagnosis Pain Generalized pain documented in this encounter Care Teams Town Marshal Relationship Specialty Start Date End Date Berenice Yoder NP [address] [place] [address] PCP - General Family Medicine 06/13/23 documented as of this encounter
--- OUTSIDE RECORDS SUMMARY | 2025-05-29 18:54 | XMS_ITS | Encounter Summary ---
Author Organization [employer] Address [address] [facility] [address]t [place] [address] Care Team Providers Care Special Needs Nanny Name Role Phone Berenice Yoder NP Primary Care Provider [phone] Reason for Visit * Reason Onset Date Comments Appointment Request 09/08/2023 Encounter Details Date Type Department Care Team (Late st Contact Info) Description 09/08/2023 Telephone [facility] MEDICINE [address] [place] [address] Berenice Yoder NP [address] [place] [address] Appointment Request Social History Tobacco Use Types [...] [facility] ADULT DENTAL [address] [place] [address] Carmencita Puga [address] [place] [address] documented as of this encounter Visit Diagnoses Not on filedocumented in this encounter Care Teams Special Needs Nanny Relationship Specialty Start Date End Date Berenice Yoder NP [address] [place] [address] PCP - General Family Medicine 06/13/23 documented as of this encounter
--- OUTSIDE RECORDS SUMMARY | 2025-05-29 18:54 | XMS_ITS | Encounter Summary ---
Author Organization [employer] Address [address] [facility] [address]t [place] [address] Care Team Providers Care Shooter Helper Name Role Phone Berenice Yoder NP Primary Care Provider [phone] Reason for Visit * Reason Comments Med Refill Encounter Details Date Type Department Care Team (Late st Contact Info) Description 09/27/2023 Refill [facility] MED[facility] [address] [place] [address] Name, MD Dennis [address] [place] [phone] Gastroesophageal reflux disease without esophagitis Social History [...] Office Visit [facility] ADULT DENTAL [address] [place] [address] Carmencita Puga [address] [place], [place] [phone] documented as of this encounter Visit Diagnoses Diagnosis Gastroesophageal reflux disease without esophagitis Esophageal reflux documented in this encounter Care Teams Shooter Helper Relationship Specialty Start Date End Date Berenice Yoder NP [address] [place] [address] PCP - General Family Medicine 06/13/23 documented as of this encounter
[2025-05-29 19:06] VITALS: BP 114/60; PULSE 60; RESP 14; TEMP 36.4; O2SAT 97
== END 2025-05-29 19:07 | disposition home or self-care (01) ==
PROVIDERS: Physician Assistant Medical; Emergency Provider Emergency Medicine
DX: J18.9 Pneumonia, unspecified organism (principal); G89.18 Other acute postprocedural pain; R06.02 Shortness of breath; R10.2 Pelvic and perineal pain; Z79.899 Other long term (current) drug therapy; Z87.891 Personal history of nicotine dependence
CPT/HCPCS: 36415; 71046; 74177; 80048; 80076; 83690; 83735; 85025; 96374; 99284; 99285; J1885; Q9967

== ENCOUNTER → 2025-05-29 14:02 | Outpatient (BNV) | payer MEDICAID, SELFPAY | PROVIDERS: Visit Provider Radiology Diagnostic Radiology | DX: R16.2 Hepatomegaly with splenomegaly, not elsewhere classified (principal); N20.0 Calculus of kidney; R06.02 Shortness of breath | CPT/HCPCS: 71046; 74177 ==

== ENCOUNTER 2025-09-02 12:29 | Outpatient (REF) | payer MEDICAID, SELFPAY ==
[2025-09-02 13:26] LABS: Hematocrit 38.1 % (42.0-52.0); Hemoglobin 12.1 g/dl (14.0-18.0); Mean Corpuscular HGB Conc 31.8 g/dl (31.0-36.0); Mean Corpuscular Hemoglobin 25.7 pg (27.0-33.0); Mean Corpuscular Volume 81.1 fL (80.0-98.0); NRBC Abs Auto 0.000 X10*3/uL (0.0-0.012); NRBC Pct Auto 0.0 /100WBC (0.0-0.2); Platelet Count 231 X10*3/uL (160-400); Red Blood Count 4.70 X10*6/uL (4.60-5.80); White Blood Count 2.6 X10*3/uL (4.8-10.8)
[2025-09-02 13:32] LABS: INTERNATIONAL NORM RATIO 1.0 (0.9-1.1); Prothrombin Time 11.8 SEC (11.2-13.5)
[2025-09-02 14:04] LABS: Alanine Aminotransferase 58 U/L (0-40); Albumin Level 3.7 g/dL (3.5-5.0); Alkaline Phosphatase 263 U/L (39-117); Anion Gap 13 (12-20); Aspartate Amino Transferase 101 U/L (5-37); Blood Urea Nitrogen 11 mg/dL (9-16); Calcium 8.6 mg/dL (8.4-10.2); Carbon Dioxide 25 mmol/L (22-29); Chloride 102 mmol/L (96-108); Estimated Glomerular Filt Rate > 60; Potassium 3.8 mmol/L (3.3-5.1); Sodium 136 mmol/L (135-145); Total Protein 8.5 g/dL (6.5-8.0)
--- OUTSIDE RECORDS SUMMARY | 2025-09-02 16:27 | XMS_ITS | Clinical Summary ---
Author Organization [employer] Address [address] [facility] 7t [place] [address] Care Team Providers Care Stable Cleaner Name Role Phone Beba Berenice TOMLINSON Primary Care Provider [phone] Allergies Active Allergy Reactions Criticality Noted Date [...] genital areas 15 g 2 4 Active omeprazole (PriLOSEC) [address] capsuleIndicatio [...] TAKE WITH FOOD 60 tablet 5 Active cholecalciferol (Vitamin D-3) 10 MCG (400 UNIT) tabletIndication s:Hypovitaminosi s D TAKE 2 TABLETS (800U) BY MOUTH EVERY DAY 180 tablet 1 5 Active Active Problems Problem Noted Date Diagnosed Date Dental plaque 06/25/2025 Missing teeth, acquired 06/25/2025 Clinical xerostomia 06/25/2025 Gingival bleeding 06/25/2025 Sleep disturbance 09/26/2024 Assessment & Plan (09/26/2024 [...] hypercholesterolemia and hypertriglyceride katiana 11/01/2023 Methadone dependence (CMS/HCC) 12/15/2017 Gastroesophageal reflux disease 12/17/2014 06/22/2023 Chronic hepatitis C (CMS/HCC) 12/17/2014 Mood disorder 12/17/2014 Opioid abuse 12/17/2014 [...] Encounters Date Type Department Care Team Description 09/02/2025 Orders Only GENERIC EXTERNAL DATA DEPARTMENT Provider, Generic External Data 07/17/2025 3:00 PM EST Office Visit [facility] ADULT D[facility]AL [address] [place] [address] René Alas DMD 07/16/2025 Travel 06/25/2025 2:15 PM EDT Office Visit [facility] ADULT [facility] [address] [place] [address] Carmencita Puga Dental plaque (Primary Dx); Missing teeth, acquired; Clinical xerostomia; Gingival bleeding 06/18/2025 Travel 06/13/2025 Telephone [facility] MED[facility]INE [address] [place] [phone] Berenice Yoder NP [address] [address] Berenice Yoder NP No Show 06/10/2025 Telephone [facility] [address] [place] [phone] Berenice Yoder NP CHARTPREP 06/08/[address] [address] Berenice Yoder NP Hypovitaminosis D 06/05/2025 Results Follow-Up [facility] [address] [place] [address] Berenice Yoder NP XR Chest 2 Views from Last 3 Months Immunizations Immunization Administration [...] is your housing situation today? I have mikaylavenkat de la vega 11/01/2023 Think about the [...] Sign Reading Time Taken Comments Blood Pressure 132/76 06/25/2025 2:36 PM EDT Pulse 74 01/09/2025 3:02 PM [...] Care Team (Late st Contact Info) Description 12/25/2025 12:45 PM EDT Office Visit [facility] ADULT DENTAL [address] [place] [phone] Trinidad Quigley Health Maintenance Due Date Last Done Comments HIV Screening 1983 Disability Screening 1983 Family Planning (PISQ) 1998 HPV Vaccines (1 - Male 3-dose series) 1998 Depression Screening 11/01/2024 11/01/2023, 11/01/19 24 SDOH Screening 11/01/2024 11/01/2023 Hepatitis B Vaccines (3 of 3 - 3-dose series) 11/13/2024 09/18/2024, 07/23/2001 COVID-19 Vaccine (1 - season) 2025 Influenza Vaccine (#1) 2025 4, 12/05/2013, 10/02/2012 Alcohol/Substance Use Screening 09/18/2025 09/18/2024 Dental X-Ray: Bitewings 12/12/2025 12/12/19, 10/31/2023, 11/11/2022 Dental Oral Exam 12/25/2025 06/25/2025, 05/2025, 10/31/2023, Additional history exists Dental Prophylaxis 12/25/2025 06/25/2025, 0 12/11/2024, 11/11/2022 Tobacco Screening 07/17/2026 07/17/2025 Dental X-Ray: Full Mouth 12/13/2027 12/11/2024 Lipid Panel 09/25/2029 09/25/2024, 0202/2022, 2020 Zoster Vaccines (1 of 2) 2033 DTaP/Tdap/Td Vaccines (3 - Td or Tdap) 09/18/2034 09/18/2024, 10/02/2012 RSV Patients and Patients Aged 60 years or older (1 - 1-dose 75+ series) 2058 Pneumococcal Vaccine: Pediatrics (0 to 5 Years) and At-Risk Patients (6 to 49) Years Aged Out 06/21/2016 No longer eligible based on patient's age [...] Procedure Name Priority Date/Time Associated Diagnosis Comments COMPREHENSIVE METABOLIC PANEL Routine 09/02/2025 12:48 PM EST PROTHROMBIN TIME-INR Routine 09/02/2025 12:48 PM EST CBC Routine 09/02/2025 12:48 PM EST NO CHARGE PROCEDURE Routine 07/17/2025 3 :00 PM EST PERIODIC ORAL EVALUATION - ESTABLISHED PATIENT Routine 06/25/2025 2:15 PM EDT CASE PRESENTATION, DETAILED AND EXTENSIVE TREATMENT PLANNING Routine 06/25/2025 2:15 PM EDT Dental plaque Missing teeth, acquired Clinical xerostomia Gingival bleeding PROPHYLAXIS - ADULT Routine 06/25/2025 2 :15 PM EDT Dental plaque Missing teeth, acquired Clinical xerostomia Gingival bleeding INTRAORAL - COMPLETE SERIES OF RADIOGRAPHIC IMAGES Routine 12/11/2024 1:00 PM EDT LIPID PANEL, STANDARD Routine 09/25/2024 11:13 AM EST Overweight from Last 3 Months or Most Recently Relevant to Health Maintenance Results * Prothrombin Time-INR (09/02/2025 12:48 PM EST) Prothrombin Time 11.8 11.2 - 13.5 SEC [facility] INTERNATIONAL NORM RATIO 1.0 0.9 - 1.1 [facility] Comment:INTERNATIONAL NORMAL IZED RATIO (INR) REFERENCE RANGES Reference RangeFor patients not on anticoagulant therapy: 0.9 - 1.1INR ranges for oral anticoagulanttherapy:For prevention and treatment of venous thrombosis and pulmonary embolism: 2.0 - 3.0For acute myocardial infarction with aspirin therapy: 2.0 - 3.0For acute myocardial infarction without aspirin therapy: 3.0 - 4.0For patients with mechanical prosthetic heart valves: 2.5 - 3.5 09/02/2025 12:4 8 PM EST 09/02/2025 12:48 PM EST us Generic External Data Provider LAB BLOOD ORDERAB LES Final Result Performing Organization Address City/State/[facility] Co de Phone Number [facility] [address] [place] [phone] * (ABNORMAL) CBC (09/02/2025 12:48 PM EST) White Blood Count 2.6(L) 4.8 - 10.8 X10*3/uL [facility] Red Blood Count 4.70 4.60 - 5.80 X10*6/uL [facility] Hemoglobin 12.1(L) 14.0 - 18.0 g/dl [facility] Hematocrit 38.1(L) 42.0 - 52.0 % [facility] Mean Corpuscular Volume 81.1 80.0 - 98.0 fL [facility] Mean Corpuscular Hemoglobin 25.7(L) 27.0 - 33.0 pg [facility] Mean Corpuscular HGB Conc 31.8 31.0 - 36.0 g/dl [facility] Red Cell Distribution Width 15.3 11.0 - 16.0 % [facility] Platelet Count 231 160 - 400 X10*3/uL [facility] Mean Platelet Volume 9.5 9.4 - 12.4 fL [facility] NRBC Pct Auto 0.0 0.0 - 0.2 /100WBC [facility] NRBC Abs Auto 0.000 0.0 - 0.012 X10*3/uL [facility] 09/02/2025 12:4 8 PM EST 09/02/2025 12:48 PM EST us Generic External Data Provider LAB BLOOD ORDERAB LES Final Result [facility] [address] [place] [address] [phone] * (ABNORMAL) Comprehensive Metabolic Panel (09/02/2025 12:48 PM EST) Sodium 136 135 - 145 mmol/L [facility] Potassium 3.8 3.3 - 5.1 mmol/L [facility] Chloride 102 96 - 108 mmol/L [facility] Carbon Dioxide 25 22 - 29 mmol/L [facility] Anion Gap 13 12 - 20 [facility] Urea Nitrogen (BUN) 11 9 - 16 mg/dL [facility] Creatinine, Serum 0.78 0.5 - 1.4 mg/dL [facility] Comment:Mild Icterus.Interpr et result with caution. Estimated Glomerular Filt Rate >60 [facility] Comment:Chronic Kidney Disea se: Estimated GFR < 60 mL/min/[id number] Kidney Disease: Estimated GFR < 15 mL/min/1.73m2 Glucose 117(H) 60 - 115 mg/dL [facility] Calcium 8.6 8.4 - 10.2 mg/dL [facility] Bilirubin, Total 7.5(H) 0.0 - 1.0 mg/dL [facility] Comment:Mild Icterus. Aspartate Amino Transferase 101(H) 5 - 37 U/L [facility] Alanine Aminotransferase 58(H) 0 - 40 U/L [facility] Total Protein 8.5(H) 6.5 - 8.0 g/dL [facility] Albumin Level 3.7 3.5 - 5.0 g/dL [facility] Alkaline Phosphatase 263(H) 39 - 117 U/L [facility] 09/02/2025 12:4 8 PM EST 09/02/2025 12:48 PM EST us Generic External Data Provider LAB BLOOD ORDERAB LES Final Result Performing Organization Address City/State/[facility] Co de Phone Number [facility] [address] [place] [phone] * (ABNORMAL) Lipid Panel, Standard (09/25/2024 11:13 AM EST) Triglycerides 265(H) <150 mg/dL [facility] Comment:Desirable Triglyceri de: less than 150 mg/dLBorderline High Triglyceride 150-199 mg/dLHigh Triglyceride: 200-499 mg/dLVery High Triglyceride: greater than or equal to 5OO mg/dL Cholesterol 201(H) <200 mg/dL [facility] Comment:Desirable Cholestero l: less than 200 mg/dLBorderline High Cholesterol: 200-239 mg/dLHigh Cholesterol: greater than 239 mg/dL LDL Cholesterol Calculated 120(H) <100 mg/dL [facility] Comment:Desirable LDL: less than 100 mg/dLNear Optimal/Above Optimal LDL: 110- 129 mg/dLBorderline High LDL: 130-159 mg/dLHigh LDL: 160-189 mg/dLVery High LDL: greater than or equal to 190 mg/dL HDL Cholesterol 28(L) >40 mg/dL [facility] Comment:Desirable HDL: great er than 40 mg/dL Note: This HDL assay may give artificially low results in patients with liver disease. Blood Venous blood specimen / Unknown 09/25/2024 11:13 AM EST 09/25/2024 12:05 PM EST us Berenice Yoder MATE FISHING VESSEL LAB BLOOD ORDERABLES Final Resu lt [facility] [address] [place] [address] [phone] from Last 3 Months or Most Recently Relevant to Health Maintenance Insurance [facility] C3 [facility] MEDICAID STAND ADULT Care Teams Stable Cleaner Relationship Specialty Start Date End Date Berenice Yoder NP [address] [place] [phone] PCP - General Family Medicine 06/13/23
--- OUTSIDE RECORDS SUMMARY | 2025-09-02 16:27 | XMS_ITS | Encounter Summary ---
Author Organization [employer] Address [address] [facility] 7t [place] [address] Care Team Providers Care Health Club Attendant Name Role Phone Berenice Yoder NP Primary Care Provider [phone] Reason for Visit * Reason Onset Date Comments Appointment Request 08/29/2024 Encounter Details Date Type Department Care Team ([facility] Contact Info) Description 08/29/2024 Telephone [facility] MED[facility]INE [address] [place] [address] Berenice Yoder NP [address] [place] [address] Appointment Request Social History Tobacco Use Types [...] they stated that he needs a Apt. Chairman And Chief Executive Officer advised pt that it would be towards the end of September and pt would like it as soon as possible. If any questions contact pt at [phone] documented in this encounter Plan of Treatment Upcoming Encounters Date Type Department Care Team (Late st Contact Info) Description 12/25/2025 12:45 PM EDT Office Visit [facility] ADULT DENTAL [address] [place] [address] Trinidad Quigley documented as of this encounter Visit Diagnoses Not on filedocumented in this encounter Additional Health Concerns Assessment Noted Time PHQ-9 Depression Total Score: 0 11/01/19 24 3:16 PM EST documented as of this encounter Care Teams Health Club Attendant Relationship Specialty Start Date End Date Berenice Yoder NP [address] [place] [address] PCP - General Family Medicine 06/13/23 documented as of this encounter
--- OUTSIDE RECORDS SUMMARY | 2025-09-02 16:27 | XMS_ITS | Encounter Summary ---
Author Organization [employer] Address [address] [facility] [address] [place] [address] Care Team Providers Care Dairy Lab Technician Name Role Phone Yeisonaggie Berenice DAVI Primary Care Provider [phone] Encounter Details Date Type Department Care Team ([facility] st Contact Info) Description 09/02/2025 Orders Only GENERIC EXTERNAL DATA [...] Description 12/25/2025 12:45 PM EDT Office Visit [facility] ADULT DENTAL [address] [place] [address] Trinidad Quigley documented as of this encounter Procedures Procedure Name Priority Date/Time Associated Diagnosis Comments PROTHROMBIN TIME-INR Routine 09/02/2025 12:48 PM EST CBC Routine 09/02/2025 12:48 PM EST COMPREHENSIVE METABOLIC PANEL Routine 09/02/2025 12:48 PM EST documented in this encounter Results * (ABNORMAL) Comprehensive Metabolic Panel (09/02/2025 12:48 PM EST) Sodium 136 135 - 145 mmol/L [facility] Potassium 3.8 3.3 - 5.1 mmol/L [facility] Chloride 102 96 - 108 mmol/L [facility] Carbon Dioxide 25 22 - 29 mmol/L [facility] Anion Gap 13 12 - 20 [facility] Urea Nitrogen (BUN) 11 9 - 16 mg/dL [facility] Creatinine, Serum 0.78 0.5 - 1.4 mg/dL [facility] Comment:Mild Icterus.Interpr et result with caution. Estimated Glomerular Filt Rate >60 [facility] Comment:Chronic Kidney Disea se: Estimated GFR < 60 mL/min/[id number] Kidney Disease: Estimated GFR < 15 mL/min/1.73m2 Glucose 117(H) 60 - 115 mg/dL [facility] Calcium 8.6 8.4 - 10.2 mg/dL [facility] Bilirubin, Total 7.5(H) 0.0 - 1.0 mg/dL [facility] Comment:Mild Icterus. Aspartate Amino Transferase 101(H) 5 - 37 U/L [facility] Alanine Aminotransferase 58(H) 0 - 40 U/L [facility] Total Protein 8.5(H) 6.5 - 8.0 g/dL [facility] Albumin Level 3.7 3.5 - 5.0 g/dL [facility] Alkaline Phosphatase 263(H) 39 - 117 U/L [facility] 09/02/2025 12:4 8 PM EST 09/02/2025 12:48 PM EST Generic External Data Provider LAB BLOOD ORDERAB LES Final Result [facility] [address] [place] [phone] * Prothrombin Time-INR (09/02/2025 12:48 PM EST) Prothrombin Time 11.8 11.2 - 13.5 SEC [facility] INTERNATIONAL NORM RATIO 1.0 0.9 - 1.1 [facility] Comment:INTERNATIONAL NORMAL IZED RATIO (INR) [...] ORDERAB LES Final Result Performing Organization Address [facility]/ZIP Co de Phone Number [facility] [address] [place] [phone] [phone] * (ABNORMAL) CBC (09/02/2025 12:48 PM EST) White Blood Count 2.6(L) 4.8 - 10.8 X10*3/uL [facility] Red Blood Count 4.70 4.60 - 5.80 X10*6/uL [facility] Hemoglobin 12.1(L) 14.0 - 18.0 g/dl [facility] Hematocrit 38.1(L) 42.0 - 52.0 % [facility] Mean Corpuscular Volume 81.1 80.0 - 98.0 fL [facility] Mean Corpuscular Hemoglobin 25.7(L) 27.0 - 33.0 pg [facility] Mean Corpuscular HGB Conc 31.8 31.0 - 36.0 g/dl [facility] Red Cell Distribution Width 15.3 11.0 - 16.0 % [facility] Platelet Count 231 160 - 400 X10*3/uL [facility] Mean Platelet Volume 9.5 9.4 - 12.4 fL [facility] NRBC Pct Auto 0.0 0.0 - 0.2 /100WBC [facility] NRBC Abs Auto 0.000 0.0 - 0.012 X10*3/uL [facility] 09/02/2025 12:4 8 PM EST 09/02/2025 12:48 PM EST us Generic External Data Provider LAB BLOOD ORDERAB LES Final Result Performing Organization Address City/[facility]/ZIP Co de Phone Number [facility] [address] [place] [phone] documented in this encounter Visit Diagnoses Not on filedocumented in this encounter Additional Health Concerns Assessment Noted Time PHQ-9 Depression Total Score: 0 11/01/19 24 3:16 PM EST documented as of this encounter Care Teams Dairy Lab Technician Relationship Specialty Start Date End Date Berenice Yoder NP [address] [place] [address] PCP - General Family Medicine 06/13/23 documented as of this encounter
--- OUTSIDE RECORDS SUMMARY | 2025-09-02 16:27 | XMS_ITS | Encounter Summary ---
Author Organization [employer] [facility] Address [address] [place] [address] 7t [place] [address] Care Team Providers Care Preparation Operator Name Role Phone Shell PiperP Primary Care Provider Maria Dolores Berenice Gasca NP Primary Care Provider [phone] Encounter Details Date Type Department Care Team (Latest Contact Info) Description 06/08/2020 Abstract [facility] Dental, Provider, DDS Social History [...] Care Team ( st Contact Info) Description 12/25/2025 12:45 PM EDT Office Visit [facility] ADULT DENTAL [address] [place] [address] Trinidad Quigley documented as of this encounter Visit Diagnoses Not on filedocumented in this encounter Care Teams Preparation Operator Relationship Specialty Start Date End Date Shell Piper FNP PCP - General Family Medicine 06/28/21 06/12/23 Berenice Yoder NP [address] [place] [address] PCP - General Family Medicine 06/13/23 documented as of this encounter
--- OUTSIDE RECORDS SUMMARY | 2025-09-02 16:27 | XMS_ITS | Encounter Summary ---
Author Organization [employer] Address 75 [facility] 7t [place] [address] Care Team Providers Care Project Drilling Engineer Name Role Phone Berenice Yoder NP Primary Care Provider [phone] Reason for Visit * Reason Comments Med Refill Encounter Details Date Type Department Care Team (Late Contact Info) Description 08/22/[address] [facility] MED[facility] [address] [place] [phone] Name, MD Dennis [address] [place] [phone] Pain Social History Tobacco Use Types Packs/Day [...] Department Care Team (Late Contact Info) Description 12/25/2025 12:45 PM EDT Office Visit [facility] ADULT DENTAL [address] [place] [address] Trinidad Quigley documented as of this encounter Visit Diagnoses Diagnosis Pain Generalized pain documented in this encounter Care Teams Project Drilling Engineer Relationship Specialty Start Date End Date Berenice Yoder NP [address] [place] [address] PCP - General Family Medicine 06/13/23 documented as of this encounter
--- OUTSIDE RECORDS SUMMARY | 2025-09-02 16:27 | XMS_ITS | Encounter Summary ---
Author Organization [employer] [facility] Address [address] [place] [address] [address] [place] [address] Care Team Providers Care Rotary Furnace Operator Name Role Phone Berenice Yoder NP Primary Care Provider [phone] Reason for Visit * Reason Comments Med Refill Encounter Details Date Type Department Care Team (Late st Contact Info) Description 06/29/2023 Refill [facility] [address] [place] [address] Shell Piper, NEUROSURGERY SPINE PHYSICIAN Pain Social History Tobacco Use Types Packs/Day [...] Description 12/25/2025 12:45 PM EDT Office Visit [facility] ADULT DENTAL [address] [place] [address] Trinidad Quigley documented as of this encounter Visit Diagnoses Diagnosis Pain Generalized pain documented in this encounter Care Teams Rotary Furnace Operator Relationship Specialty Start Date End Date Berenice Yoder NP [address] [place] [address] PCP - General Family Medicine 06/13/23 documented as of this encounter
--- OUTSIDE RECORDS SUMMARY | 2025-09-02 16:27 | XMS_ITS | Encounter Summary ---
Author Organization [employer] Address [address] [facility] 7t [place] [address] Care Team Providers Care Grounds Maintenance Supervisor Name Role Phone Berenice Yoder NP Primary Care Provider [phone] Reason for Visit * Reason Onset Date Comments Appointment Request 09/08/2023 Encounter Details Date Type Department Care Team (Late st Contact Info) Description 09/08/2023 Telephone [facility] [address] [place] [address] Berenice Yoder NP [address] [place] [address] Appointment Request Social History Tobacco Use Types [...] Description 12/25/2025 12:45 PM EDT Office Visit [facility] ADULT DENTAL [address] [place] [address] Trinidad Quigley documented as of this encounter Visit Diagnoses Not on filedocumented in this encounter Care Teams Grounds Maintenance Supervisor Relationship Specialty Start Date End Date Berenice Yoder NP [address] [place] [address] PCP - General Family Medicine 06/13/23 documented as of this encounter
--- OUTSIDE RECORDS SUMMARY | 2025-09-02 16:27 | XMS_ITS | Encounter Summary ---
Author Organization [employer] Address [address] [facility] 7t [place] [address] Care Team Providers Care Boiler/Chiller Technician Name Role Phone Berenice Yoder NP Primary Care Provider [phone] Reason for Visit * Reason Comments Med Refill Encounter Details Date Type Department Care Team (Late st Contact Info) Description 09/27/2023 Refill [facility] MEDICINE [address] [place] [phone] Name, MD Dennis [address] [place] [phone] Gastroesophageal reflux disease without esophagitis Social History [...] Description 12/25/2025 12:45 PM EDT Office Visit [facility] ADULT DENTAL [address] [place] [address] Trinidad Quigley documented as of this encounter Visit Diagnoses Diagnosis Gastroesophageal reflux disease without esophagitis Esophageal reflux documented in this encounter Care Teams Boiler/Chiller Technician Relationship Specialty Start Date End Date Berenice Yoder NP [address] [place] [address] PCP - General Family Medicine 06/13/23 documented as of this encounter
== END 2025-09-02 12:30 | disposition home or self-care (01) ==
LOC: HO.LAB 12:29
PROVIDERS: Visit Provider Internal Medicine
DX: B19.20 Unspecified viral hepatitis C without hepatic coma (principal); R17 Unspecified jaundice
CPT/HCPCS: 36415; 80053; 85027; 85610